=== PATIENT | female | born 1935 | race Caucasian/White ===

== ENCOUNTER 2019-11-03 19:12 | Inpatient (IN) | payer MEDICARE, OTHER, SELFPAY ==
[2019-11-03] VITALS (10 sets, daily range): BP systolic 103–127; BP diastolic 69–114; PULSE 105–130; RESP 18–25; TEMP 36.6–36.8; O2SAT 96–100; BMI 32.5
--- NOTE | 2019-11-03 19:12 | ECHOD_ITS ---
Version 2 Reason For Study: New Afib Procedure This was a 2D Doppler, Color Flow transthoracic echocardiogram. Technically difficult due to arrhythmia. Exam performed portable in patient room. Left Ventricle Normal LV size. Left ventricular systolic function is normal. The estimated ejection fraction is 65 %. Unable to assess diastolic dysfunction. No regional wall motion abnormalities noted. Right Ventricle Normal RV size. Normal systolic function. Atria The left atrium is moderately enlarged. The right atrium is mildly enlarged. No doppler evidence for ASD. Mitral Valve There is moderate mitral annular calcification. Extension of the mitral annular calcification onto the base of the mitral valve leaflets. Mild diffuse mitral valve calcification. Moderate (2+) mitral valve insufficiency. Tricuspid Valve Normal tricuspid valve. Mild to moderate (1-2+) tricuspid valve insufficiency. Right ventricular systolic pressure estimated to be 48 mmHg. Aortic Valve Based upon the 2D echocardiographic images obtained the aortic valve is not well visualized, however, there appears to be diffuse thickening, calcification, and restriction. Moderate aortic stenosis. Pulmonic Valve The pulmonic valve is not well visualized. Mild-Moderate (1-2+) pulmonic valve insufficiency. Great Vessels The aortic root is not well visualized. Pericardium/Pleural No pericardial effusion. MMode/2D Measurements & Calculations LVIDd: 3.5 cm IVSd: 1.7 cm LVOT diam: 2.0 cm LVIDs: 1.8 cm LVPWd: 0.99 cm LVOT area: 3.0 cm2 RVDd: 4.0 cm FS: 50.0 % LA dimension: 4.1 cm LAV(MOD-bp): 77.6 ml LA A4 area: 25.6 cm2 LAV(MOD-sp2): 76.9 ml LAV(MOD-sp4): 78.4 ml RA A4 area: 21.3 cm2 Doppler Measurements & Calculations MV E max hong: 183.1 cm/sec Ao V2 max: 345.5 cm/sec LV V1 max: 77.6 cm/sec Ao max P.9 mmHg LV V1 max P.4 mmHg Ao V2 mean: 235.4 cm/sec LV V1 mean P.1 mmHg Ao mean P.6 mmHg LV V1 mean: 48.0 cm/sec Ao V2 VTI: 60.9 cm LV V1 VTI: 11.7 cm BESS(I,D): 0.58 cm2 BESS(V,D): 0.68 cm2 MR max hong: 586.3 cm/sec SV(LVOT): 35.1 ml PA V2 max: 101.2 cm/sec MR max P.5 mmHg MR mean hong: 389.2 cm/sec MR mean P.9 mmHg MR VTI: 144.6 cm PI end-d hong: 115.4 cm/sec TR max hong: 316.1 cm/sec TR max P.0 mmHg Interpretation Summary Left ventricular systolic function is normal. The estimated ejection fraction is 65 %. The left atrium is moderately enlarged. The right atrium is mildly enlarged. There is moderate mitral annular calcification. Extension of the mitral annular calcification onto the base of the mitral valve leaflets. Mild diffuse mitral valve calcification. Moderate (2+) mitral valve insufficiency. Mild to moderate (1-2+) tricuspid valve insufficiency. Moderate aortic stenosis. Mild-Moderate (1-2+) pulmonic valve insufficiency. Right ventricular systolic pressure estimated to be 48 mmHg. Unable to assess diastolic dysfunction. Ordering Physician: Yuri Martin Performed By: Deven Quintanilla RCS
--- NOTE | 2019-11-03 19:20 | PCM.HP.STD ---
History of Present Illness Date of Admission: 11/03/19 Chief Complaint: palpitations The patient is a 84 year old F is been experiencing palpitations intermittently for the past few days. On the eighth, patient was have palpitations as well as chest pain. The chest pain would radiate to her jaw as well as her down her left arm. Was seen at the [facility] emergency room and was diagnosed with atrial fibrillation. I do not have the records but per the family, patient's heart rate was still in the 180s when she was discharged and was started on digoxin. Again patient had the same symptoms today and presented to [facility]. Patient was found to be in atrial fibrillation with RVR. Patient had a digoxin level of 2.3. Patient was started on diltiazem drip and heart rate improved to the 110s 1 teens. Patient had chest x-ray that was concerning for pneumonia. Family did not want to go back to [facility] and their next request was for [facility] and we were contacted and the patient was sent over. Currently the patient is chest pain-free. Patient states that she has been progressively short of breath over the past several days as well. Patient does have chronic lower extremity edema which she is on bumetanide as well as Aldactone. Patient denies any history of heart failure. Patient only known cardiac history that she is aware of his was rheumatic heart disease that left her with a valve issue. [] Past Medical History Past Medical History (Chronic Problems): Chronic Problems Factor V deficiency (Chronic) Gout (Chronic) H/O iron deficiency anemia (Chronic) Osteoporosis (Chronic) Porphyria (Chronic) Recurrent dislocation of hip (Chronic) CAD (coronary artery disease) (Chronic) Hypothyroidism (Chronic) Vitamin D deficiency (Chronic) Overactive bladder (Chronic) Spinal stenosis (Chronic) Chronic diarrhea (Chronic) Adrenal hyperplasia (Chronic) History of deep venous thrombosis or pulmonary embolus (Chronic) Type 2 diabetes mellitus (Chronic) Chronic anticoagulation (Chronic) Familial combined hyperlipidemia (Chronic) Medical History: Medical History (Last Updated 11/03/19 @ 19:28 by Yuri Martin DO) CHF (congestive heart failure) I50.9 Cervical radiculopathy M54.12 Colon cancer C18.9 s/p resection DM2 (diabetes mellitus, type 2) E11.9 Degenerative disc disease Factor V deficiency D68.2 GERD (gastroesophageal reflux disease) K21.9 Guillain-[place]olla G61.0 resolved Hyperlipidemia E78.5 Hypothyroid E03.9 Osteoporosis M81.0 Peripheral neuropathy G62.9 Porphyria E80.20 VTE (venous thromboembolism) I82.90 Vitamin D deficiency E55.9 CKD (chronic kidney disease) stage 2, GFR 60-89 ml/min N18.2 HTN (hypertension) I10 Allergies Sulfa (Sulfonamide Antibiotics) Allergy (Verified 12/09/16 10:54) Rash Home Medications: Ambulatory Orders Medication Instructions Recorded Allopurinol [Zyloprim] 300 mg PO DAILY 09/30/16 Atorvastatin Calcium [Lipitor] 20 mg PO QHS 09/30/16 Bumetanide [Bumex] 0.5 mg PO BID 09/30/16 Citalopram [Celexa] 40 mg PO DAILY 09/30/16 Colesevelam Hydrochloride [Welchol] 625 mg GT BIDCM 09/30/16 Diphenoxylate HCl/Atropine 3 tab PO 4X/DAY 09/30/16 [Lomotil 2.5-0.025 mg Tablet] Duloxetine HCl 60 mg PO DAILY 09/30/16 Fenofibrate [Tricor] 145 mg PO DAILY 09/30/16 Ferrous Sulfate 325 mg PO DAILY@0800 09/30/16 Gabapentin [Neurontin] 400 mg PO TIDCM 09/30/16 Levothyroxine Sodium [Levo-T] 112 mcg PO DAILY 09/30/16 Lidocaine 5% 5 % TOPICAL DAILY 09/30/16 Metoprolol Tartrate [Lopressor 25 mg PO BID 09/30/16 (beta negar)] Multivit-Min/Iron/Folic Acid/K 1 each PO DAILY 09/30/16 [Multi For Her Softgel] Nitroglycerin (INPATIENT USE) 0.4 mg SUBLINGUAL PRN PRN 09/30/16 [Nitrostat] Potassium Chloride [Klor-Con 20 meq PO DAILY 09/30/16 Sprinkle] Spironolactone [Aldactone] 25 mg PO BID 09/30/16 Vit B12/Levomefolate/Vit B6/B2 1,000 each PO DAILY 09/30/16 [l-Methyl-Mc Tablet] Warfarin [Coumadin] 3 mg PO DAILY 09/30/16 cycloBENZAPRine HCl [Flexeril] 5 mg PO TID PRN PRN 09/30/16 Ergocalciferol [Vitamin D] 50,000 unit PO QMONTH 12/09/16 [place]-3 Fatty Acids/Fish Oil [Fish 1 each PO BID 12/09/16 Oil 1,000 mg Capsule] Sucralfate [Carafate] 1 gm PO TIDCM 12/09/16 Lidocaine [Lidoderm Patch] 1 patch TOPICAL DAILY 12/16/16 HYDROmorphone tablet [Dilaudid] 4 mg PO Q6 #1 tablet 12/17/16 Hydrocodone Bitart/Apap 5-325 1 - 2 tablet PO Q4H PRN PRN #80 12/17/16 [[place] 5/325] tablet Lorazepam [Ativan] 0.5 mg PO BID #1 tablet 12/17/16 Surgical History: appendectomy, arthroscopy, knee - left, cholecystectomy, colectomy - and ileostomy and then again for cancer in 2007, herniorrhaphy - umbilical, hysterectomy, total hip arthroplasty - left, - - oophorectomy in her 20s, bilateral bunion removal, right hammertoe repair, repair of hernaited nucleus pulposus of lumbar spine Smoking Status: Never smoker - *Family History Maternal History Items: Heart Disease Paternal History Items: Heart Disease Review of Systems Constitutional: Denies: Anorexia, Chills, Fever Eyes: Denies: Blurred vision, Double vision HEENT: Denies: Head Aches, Sinus Congestion, Sinus Drainage Cardiovascular: Reports: Chest Pain, Edema Respiratory: Reports: Shortness of Breath. Denies: Cough Gastrointestinal: Denies: Abdominal Pain, Nausea, Vomiting Genitourinary: Denies: Dysuria Musculoskeletal: Reports: Arm Pain. Denies: Back Pain Skin: Denies: Dryness, Jaundice Neurological: Denies: Numbness, Tingling, Focal weakness Psychiatric: Denies: Anxiety, Depression Endocrine: Denies: Change in Body Habitus, Heat/ Cold Intolerance Hematologic/ Lymphatic: Reports: Hx of blood clot. Denies: Easy Bruising, Easy Bleeding Comment: All review systems are otherwise negative except for as mentioned above and in the HPI. VTE Information - Inpt Only VTE Present on Admission: No VTE Mechan Device Prophylaxis: None VTE Pharm Prophylaxis ordered?: No Reason prophylaxis not ordered:: Treatment Not Indicated - Physical Exam Vitals/I&O's: Vital Signs Temp Pulse Resp BP Pulse Ox 36.7 C 130 H 25 H 127/114 H 98 11/03/19 19:15 11/03/19 19:15 11/03/19 19:15 11/03/19 19:15 11/03/19 19:15 Oxygen Flow Rate (L/min) 3 Oxygen Delivery Method Nasal Cannula Weight: 83.2 kg Body Mass Index (BMI) 32.5 Finger Stick Blood Glucose 150 General: Alert, Cooperative, No apparent distress, Well developed, Well nourished HEENT: Atraumatic, Normocephalic, - - No icterus Oral: Moist Mucosa Neck: No Nodes, Trachea Midline, - - Positive JVD Lungs: Normal air movement, - - Bibasilar crackles Cardiovascular: Irregular Rate, Tachycardic Abdomen: Bowel Sounds Present, Soft, Non Tender, Non-Distended, - - Ileostomy in place. Extremities: No Calf Tenderness, Edema Skin: - - Of venous stasis dermatitis of lower extremities. No ulcers Musculoskeletal: No Tenderness to Palpation of Joints or Extremities, No Muscle Wasting Neurological: Muscle tone normal, - - No clonus Psych/Mental Status: Normal Affect, Appropriate Labs from outside hospital: INR 4, digoxin 2.3. BMP: Sodium 130, potassium 4.5, BUN 21, creatinine 0.9. CBC: White count 11.1, ODILON globin 10.5, platelets 199. Chest x-ray personally reviewed and that showed pulmonary vascular congestion bilaterally. Current Medications Sodium Chloride () 500 mls @ 15 mls/hr IV PRN PRN PRN Reason: Blood Transfusion Sodium Chloride () 250 mls @ 15 mls/hr IV .[id number] PRN PRN Reason: Saline Flush Sodium Chloride () 250 mls @ 15 mls/hr IV .[id number] PRN PRN Reason: Additional IVPB Infusion Nutritional Formula (Lactose Free) (Glucerna Shake) 120 ml PO 4X/DAY XANDER Sodium Chloride () 10 - 40 ml IV UD PRN PRN Reason: SALINE FLUSH Assessment/Plan All Active Problems Cellulitis of leg, left (Acute) Wound of left leg (Acute) B12 deficiency (Acute) Osteoarthritis (Acute) Depression with anxiety (Acute) 1. Atrial fibrillation with RVR Improved with diltiazem drip. Will continue with that for now. Previously, patient was on metoprolol 25 mg twice daily and then was recently added digoxin from [facility]. Plan is to check an echocardiogram and a cardiology consult. Patient already anticoagulated with warfarin that she takes for factor V Leiden deficiency. Toxin level was high so that will be held 2. Acute heart failure Unclear type at this time though from documents, it is written as diastolic Check an echocardiogram to verify ejection fraction Patient will be started on furosemide As outpatient, patient was on bumetanide Michael as well as spironolactone Fluid restrict and daily weights 3. Coagulopathy Secondary to warfarin but could have been compounded by the digoxin that she was recently prescribed. Hold warfarin and let it drift down to 3 then to resume 4. Diabetes mellitus type 2 Controlled per the patient Sliding scale insulin 5. Venous thromboembolic disease: Not indicated patient is already anticoagulated 6. Factor V Leiden deficiency and history of VTE Tinea with warfarin but wait for the INR to drift down to 3 7. Advanced care planning: Discussed with the patient. Patient is to continue to be DNR Comfort Care arrest. Discussed with the patient's family at bedside. Code Visit Inpatient E&M: [id number] Init Hosp L3
[2019-11-03] MEDS: Furosemide 40 MG/4 ML Vial IV (20:29)
[2019-11-03] MEDS: 0.9% Saline Lock 10 ML Syringe IV (21:29)
[2019-11-03] MEDS: Metoprolol Tartrate 25 MG Tablet PO (21:35)
[2019-11-03] MEDS: Spironolactone 25 MG Tablet PO (21:35)
[2019-11-03] MEDS: Atorvastatin Calcium 20 MG Tablet PO (21:35)
[2019-11-03] MEDS: HYDROcodone Bitartrate/Apap 5/325 Tablet PO (22:59)
[2019-11-03] MEDS: Diphenoxylate/Atrop 1 Tablet 2 TABLET PO (23:05)
[2019-11-04] VITALS (36 sets, daily range): BP systolic 92–129; BP diastolic 61–93; PULSE 75–137; RESP 18–29; TEMP 36.8; O2SAT 90–98
[2019-11-04] MEDS: LORazepam 0.5 MG Tablet PO (00:10)
[2019-11-04] MEDS: Levothyroxine 112 MCG Tablet PO (06:20)
[2019-11-04] MEDS: Ipratropium 0.5 MG/2.5 ML SOLUTION INHALATION ×5 (07:02→23:39)
[2019-11-04 07:24] LABS: Absolute Lymphocyte Count 0.83 X10^3/uL (0.83-4.51); Absolute Neutrophil Count 10.8 X10^3/uL (2.0-7.7); Basophil# 0.04 X10^3/uL; Basophil% 0.3 % (0-1); Hematocrit 34.3 % (37-47); Hemoglobin 11.1 g/dL (12.0-15.0); Lymphocyte # 0.83 X10^3/ul (4.0); Lymphocyte % 6.4 % (19-41); Mean Corp Hgb Conc 32.4 g/dL (32-36); Mean Corpuscular Hgb 32.3 pg (27.0-32.0); Mean Corpuscular Volume 99.7 fL (81-99); Mean Platelet Vol. 9.9 fl (6.2-12.0); Monocyte# 1.27 X10^3/uL; Monocyte% 9.8 % (0-10); NRBC Flagged by Analyzer 0 % (0-5); Neutrophil # 10.76 X10^3/uL (2.7-7.7); Neutrophil % 82.9 % (47-70); Platelet Count 197 K/mm3 (150-450); RBC Distribution Width CV 14.6 % (11.6-14.6); RBC Distribution Width SD 53.3 fl (35.1-43.9); Red Blood Count 3.44 M/mm3 (4.2-5.4)
[2019-11-04 07:34] LABS: International Normalized Ratio 3.3; Prothrombin Time (Protime)PT. 34.1 SECONDS (11.7-14.9)
[2019-11-04 07:41] LABS: Hemoglobin A1c 6.8 % (4.2-6.3)
[2019-11-04 08:01] LABS: ALB/GLOB Ratio 0.7 RATIO (0.9-2.4); AST(SGOT) 19 U/L (15-37); Alanine Aminotransfer ALT/SGPT 20 U/L (13-56); Albumin, Serum 3.2 g/dL (3.2-5.0); Alkaline Phosphatase 79 U/L (45-117); Anion Gap 7 (5-15); BUN 19 mg/dL (7-18); BUN/Creat Ratio 19.7 RATIO (10-20); Calcium,Total 9.3 mg/dL (8.5-10.1); Chloride 106 mmol/L (98-107); Creatinine, Serum 0.97 mg/dL (0.55-1.02); EST Glomerular Filtration Rate 58 mL/min (>60); Est Glom Filt Rate - Afr Amer 71 mL/min (>60); Estimated Creatinine Clearance 35.71 ml/min; Globulin 4.3 g/dL (2.2-4.2); Glucose 148 mg/dL (74-106); Protein, Total 7.5 g/dL (6.4-8.2); Sodium Level 136 mmol/L (136-145); Thyroid Stim Hormone (TSH) 0.86 uIU/mL (0.358-3.74)
[2019-11-04 08:14] LABS: Digoxin Level 1.67 ng/mL (0.80-2.00)
[2019-11-04] MEDS: Sucralfate 1 GM Tablet PO ×2 (08:21→16:46)
[2019-11-04] MEDS: Fenofibrate 145 MG Tablet PO (08:21)
[2019-11-04] MEDS: Gabapentin 400 MG Capsule PO ×2 (08:21→17:31)
[2019-11-04] MEDS: Ferrous Sulfate 325 MG Tablet PO (08:21)
[2019-11-04] MEDS: Furosemide 40 MG/4 ML Vial IV ×2 (08:50→17:30)
[2019-11-04] MEDS: Citalopram 40 MG TABLET PO (10:22)
[2019-11-04] MEDS: Metoprolol Tartrate 25 MG Tablet PO ×2 (10:23→22:10)
[2019-11-04] MEDS: DULoxetine Hcl 60 MG Capsule PO (10:23)
[2019-11-04] MEDS: Lidocaine 5% Patch 1 PATCH TOPICAL (10:23)
[2019-11-04] MEDS: Glucerna Shake 120 ML LIQUID PO (10:23)
[2019-11-04] MEDS: Allopurinol 300 MG Tablet PO (10:23)
[2019-11-04] MEDS: HYDROcodone Bitartrate/Apap 5/325 Tablet PO ×2 (10:51→18:37)
--- NOTE | 2019-11-04 11:22 | CON.PCM_ITS ---
Problem List (1) Chronic anticoagulation Status: Chronic (2) Familial combined hyperlipidemia Status: Chronic (3) Type 2 diabetes mellitus Status: Chronic (4) Hypothyroidism Status: Chronic (5) Factor V deficiency Status: Chronic (6) History of deep venous thrombosis or pulmonary embolus Status: Chronic Reason for Consult Date of Consultation: 11/04/19 History of Present Illness: The patient is a 84 year old female who states she has a past cardiovascular history which has included atrial fibrillation although she does not believe to be permanent who is referred for evaluation of atrial fibrillation superimposed upon a history of hyperlipidemia, diabetes mellitus, hypothyroidism, factor V deficiency, DVT, for concerns of her atrial fibrillation and left upper extremity discomfort and abnormal ECG-left bundle branch block pattern. The patient has been residing at an extended care facility. She states years ago she underwent cardiovascular evaluation but does not recall ever undergoing evaluation with a diagnostic cardiac catheterization. It appears on 12-17-12 at [facility] she had a transthoracic echocardiogram performed. At that time the left ventricle was reported as normal with an LVEF of 60% with mild mitral annular calcification, mild TR, mild aortic valve stenosis, and an estimated RV systolic pressure of 31 mmHg. She states based upon concerns of left upper extremity discomfort she recently presented to [facility] in [place], [place] for further evaluation. In the emergency department she was found to have atrial fibrillation with reports of an underlying left bundle branch block pattern with reportedly no additional acute cardiovascular findings. She was placed on medical therapy with digitalis and asked to have outpatient follow-up. She was not admitted to the hospital for further evaluation and care. She states she had recurrent symptoms and this time presented to [facility] in [place], [place] yesterday. She was found to have atrial fibrillation with an ECG with a left bundle branch block pattern. Her case had been discussed with the [facility] hospitalist staff. She was accepted in transfer to [facility] for further evaluation and care. She states that she has had intermittent left upper extremity discomfort. She has been somewhat chronically short of breath and dyspneic. She has not complained of acute nausea, emesis, or diaphoresis. She has had chronic lower extremity peripheral pitting edema. She does not recall any near-syncope or syncope. She states she has been tired and fatigued. [] Past Medical History Allergies/Adverse Reactions: Allergies Sulfa (Sulfonamide Antibiotics) Allergy (Verified 12/09/16 10:54) Rash Home Medications: Ambulatory Orders Medication Instructions Recorded Allopurinol [Zyloprim] 300 mg PO DAILY 09/30/16 Atorvastatin Calcium [Lipitor] 20 mg PO QHS 09/30/16 Bumetanide [Bumex] 0.5 mg PO BID 09/30/16 Citalopram [Celexa] 40 mg PO DAILY 09/30/16 Colesevelam Hydrochloride [Welchol] 625 mg PO BIDCM 09/30/16 Diphenoxylate HCl/Atropine 1 tab PO TID 09/30/16 [Lomotil 2.5-0.025 mg Tablet] Duloxetine HCl 60 mg PO DAILY 09/30/16 Ferrous Sulfate 65 mg PO DAILY@0800 09/30/16 Gabapentin [Neurontin] 400 mg PO TIDCM 09/30/16 Lidocaine 5% 5 % TOPICAL DAILY 09/30/16 Metoprolol Tartrate [Lopressor 25 mg PO BID 09/30/16 (beta negar)] Multivit-Min/Iron/Folic Acid/K 1 each PO DAILY 09/30/16 [Multi For Her Softgel] Nitroglycerin (INPATIENT USE) 0.4 mg SUBLINGUAL PRN PRN 09/30/16 [Nitrostat] Potassium Chloride [Klor-Con 20 meq PO DAILY 09/30/16 Sprinkle] Spironolactone [Aldactone] 25 mg PO BID 09/30/16 Vit B12/Levomefolate/Vit B6/B2 1,000 each PO DAILY 09/30/16 [l-Methyl-Mc Tablet] cycloBENZAPRine HCl [Flexeril] 5 mg PO TID PRN PRN 09/30/16 Ergocalciferol [Vitamin D] 50,000 unit PO QMONTH 12/09/16 Lidocaine [Lidoderm Patch] 1 patch TOPICAL DAILY 12/16/16 HYDROmorphone tablet [Dilaudid] 4 mg PO Q6 #1 tablet 12/17/16 Hydrocodone Bitart/Apap 5-325 1 - 2 tablet PO Q4H PRN PRN #80 12/17/16 [[place] 5/325] tablet Lorazepam [Ativan] 0.5 mg PO BID #1 tablet 12/17/16 Acetaminophen 325 - 650 mg PO Q4H PRN 11/04/19 Albuterol Sulfate 2.5 mg IH Q2H PRN 11/04/19 Amoxicillin [Amoxil] 4 cap PO PRN 11/04/19 Calcium Polycarbophil [Fiber-Lax] 2 tab PO 4X/DAY 11/04/19 Cimetidine [Tagamet Hb] 200 mg PO BID 11/04/19 Levothyroxine [Synthroid] 88 mcg PO DAILY 11/04/19 Ofloxacin 1 drp LEFT EYE Q2H 11/04/19 Propylene Glycol/Peg 400/Pf 1 ea RIGHT EYE QHS 11/04/19 [Systane 0.3-0.4% Eye Drops] Repaglinide 0.25 mg PO DINNER 11/04/19 Warfarin Sodium 5 mg PO 11/04/19 Past Medical History (Chronic Problems): Chronic Problems (Last Updated 11/03/19 @ 19:28 by Yuri Martin DO) Familial combined hyperlipidemia (Chronic) Hypothyroidism (Chronic) Recurrent dislocation of hip (Chronic) Porphyria (Chronic) Osteoporosis (Chronic) H/O iron deficiency anemia (Chronic) Gout (Chronic) Factor V deficiency (Chronic) Chronic anticoagulation (Chronic) Type 2 diabetes mellitus (Chronic) History of deep venous thrombosis or pulmonary embolus (Chronic) Adrenal hyperplasia (Chronic) Chronic diarrhea (Chronic) Spinal stenosis (Chronic) Overactive bladder (Chronic) Vitamin D deficiency (Chronic) CAD (coronary artery disease) (Chronic) Surgical History: appendectomy, arthroscopy, knee - left, cholecystectomy, colectomy - and ileostomy and then again for cancer in 2007, herniorrhaphy - umbilical, hysterectomy, total hip arthroplasty - left, - - oophorectomy in her 20s, bilateral bunion removal, right hammertoe repair, repair of hernaited nucleus pulposus of lumbar spine - *Family History Maternal History Items: Heart Disease Paternal History Items: Heart Disease Smoking Status: Never smoker Alcohol: None Drugs: None Review of Systems - Review of Systems General: Reports: Fatigue. Denies: Fever, Night Sweats Cardiovascular: Reports: Chest Discomfort, Chest Discomfort at Rest, Shortness of Breath, Peripheral Edema Respiratory: Reports: Shortness of Breath. Denies: Cough, Sputum Production, Hemoptysis Gastrointestinal: Denies: Hematemesis, Hematochezia, Melena Genitourinary: Denies: Dysuria, Hematuria Skin: Denies: Rash Subjectve: Is an 84-year-old white female who appears be resting comfortably at the moment in no acute distress. Objective: Vital Signs Temp Pulse Resp BP Pulse Ox 98.2 F 125 H 20 H 113/83 H 94 11/04/19 04:00 11/04/19 11:12 11/04/19 11:12 11/04/19 08:10 11/04/19 08:10 Oxygen Flow Rate (L/min) 2 Oxygen Delivery Method Nasal Cannula Weight: 183 lb 6.793 oz Body Mass Index (BMI) 32.5 Finger Stick Blood Glucose 150 Intake and Output for Last 24 Hours 11/02/19 11/03/19 11/04/19 23:59 23:59 23:59 Intake Total 22.75 / 237.75 402.25 / 402.25 Output Total 1275 / 1275 Balance 22.75 / -687.25 -872.75 / -872.75 General: Awake, Alert, Oriented x 3, Cooperative, No Acute Distress HEENT: Atraumatic, Normocephalic, PERRL, EOMI, Sclera Non Icteric Oral: Moist Mucosa Neck: Supple, Good ROM, No JVD Lungs: Clear to auscultation Cardiovascular: Irregular Rhythm, Normal S1, Normal S2 Murmur Murmur: Grade 2/6, Soft, Mid Systolic, LLSB Vascular: No Carotid Bruits Abdomen: Bowel Sounds Present, Soft, Non Tender Extremities: Mild RLE Edema, Mild LLE Edema Psych/Mental Status: Appropriate 11/04/19 06:35: WBC 13.0 H, RBC 3.44 L, Hgb 11.1 L, Hct 34.3 L, MCV 99.7 H, MCH 32.3 H, MCHC 32.4, Plt Count 197, MPV 9.9, Immature Gran % (Auto) 0.600, Neut % (Auto) 82.9 H, Lymph % (Auto) 6.4 L, [place] % (Auto) 9.8, Eos % (Auto) 0.0, Baso % (Auto) 0.3, Absolute Neuts (auto) 10.8 H, Nucleated RBC % 0 11/04/19 06:35: PT 34.1 H, INR 3.3 11/04/19 06:35: Sodium 136, Potassium 4.0, Chloride 106, Carbon Dioxide 23.0, Anion Gap 7, BUN 19 H, Creatinine 0.97, Est GFR (MDRD) Af Amer 71, Est GFR (MDRD) Non-Af 58 L, BUN/Creatinine Ratio 19.7, Glucose 148 H, Calcium 9.3, Total Bilirubin 0.80 11/04/19 06:35: Digoxin 1.67 11/04/19 06:35: Hemoglobin A1c 6.8 H Rhythm: Atrial fibrillation EKG: Outside ECG: Atrial fibrillation with a left bundle branch block pattern ECHO: Interpretation Summary The left atrium is moderately enlarged. The right atrium is mildly enlarged. There is moderate mitral annular calcification. Extension of the mitral annular calcification onto the base of the mitral valve leaflets. Mild diffuse mitral valve calcification. Moderate (2+) mitral valve insufficiency. Mild to moderate (1-2+) tricuspid valve insufficiency. Moderate aortic stenosis. Mild-Moderate (1-2+) pulmonic valve insufficiency. Right ventricular systolic pressure estimated to be 48 mmHg. Unable to assess diastolic dysfunction. Assessment/Plan 1. Atrial fibrillation The patient presents with atrial fibrillation. The exact duration is unknown. She is being monitored. She is being evaluated with laboratory studies, ECG, and her echocardiogram. She is being treated with rate control therapy. 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 Depending upon her clinical course she may need attempts at antiarrhythmic therapy and/or attempts at regaining sinus rhythm with synchronized biphasic DC cardioversion. Also depending upon her clinical course she may need further noninvasive or invasive cardiovascular studies as deemed appropriate. 2. Valvular heart disease She does appear to have by examination a cardiac murmur and by her transthoracic echocardiogram evidence of underlying valvular heart disease as noted. This involves both mitral and tricuspid valve regurgitation and aortic valve stenosis. This allowed to be taken into consideration during her ongoing evaluation and care. 3. Hyperlipidemia She will continue medical management as deemed appropriate. 4. Diabetes mellitus She will continue under the care of internal medicine. 5. Hypo-thyroidism She will continue medical management as deemed appropriate. 6. Factor V deficiency with history of DVT She has been on anticoagulant therapy. Depending upon her clinical course, if she does need invasive evaluation and/or care, then she would need to be considered for interruption of her oral anticoagulant therapy, bridging anti coagulant therapy, etc. The above was discussed and reviewed with the patient. She was agreeable to continued evaluation and care at this time. This note was generated using a voice recognition system and there may be incorrect words, spelling or punctuation that were not noted when reviewing the office note prior to saving.
[2019-11-04 12:15] LABS: Bedside Glucose 186 mg/dL (70-110)
--- NOTE | 2019-11-04 13:02 | PCM.PN.HOSP ---
<John West - Last Filed: 11/04/19 13:02> Reason for Visit: palpitations Subjective: Pt resting comfortably in bed. Overnight she continued to have palpitations, LE edema, SOB, nonproductive cough, and chest discomfort. She was started on dig last week at [facility] when she presented for Afib/Rvr. She was sent back to the SNF and was supposed to see cardiology in [place] as an outpatient. She did not make this appt. 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 Vitals/I&O's: Vital Signs Temp Pulse Resp BP Pulse Ox 98.2 F 125 H 20 H 113/83 H 94 11/04/19 04:00 11/04/19 11:12 11/04/19 11:12 11/04/19 08:10 11/04/19 08:10 Oxygen Flow Rate (L/min) 4 Oxygen Delivery Method Nasal Cannula Weight: 183 lb 6.793 oz Body Mass Index (BMI) 32.5 Finger Stick Blood Glucose 150 Intake and Output for Last 24 Hours 11/02/19 11/03/19 11/04/19 23:59 23:59 23:59 Intake Total 22.75 / 237.75 402.25 / 402.25 Output Total 1275 / 1275 Balance 22.75 / -687.25 -872.75 / -872.75 General: Alert, Oriented x3, Cooperative HEENT: Atraumatic, PERRLA, EOMI, Normocephalic Neck: Supple, No JVD, Negative Carotid Bruits Lungs: Normal air movement, Rales - BL bases Cardiovascular: No murmurs, Irregular Rate Abdomen: Bowel Sounds Present, Soft, Non Tender Extremities: No edema, Capillary Refill Less than 3 Seconds Skin: No rashes, No breakdown Musculoskeletal: No Tenderness to Palpation of Joints or Extremities Neurological: Cranial nerves II-XII grossly intact Psych/Mental Status: Normal Affect, Appropriate, Alert and oriented to time, place, person, mood and affect Laboratory Results 11/04/19 06:35: WBC 13.0 H, RBC 3.44 L, Hgb 11.1 L, Hct 34.3 L, MCV 99.7 H, MCH 32.3 H, MCHC 32.4, RDW Std Deviation 53.3 H, RDW Coeff of Vannesa 14.6, Plt Count 197, MPV 9.9, Immature Gran % (Auto) 0.600, Neut % (Auto) 82.9 H, Lymph % (Auto) 6.4 L, [place] % (Auto) 9.8, Eos % (Auto) 0.0, Baso % (Auto) 0.3, Absolute Neuts (auto) 10.8 H, Absolute Lymphs (auto) 0.83, Nucleated RBC % 0 11/04/19 06:35: PT 34.1 H, INR 3.3 11/04/19 06:35: Sodium 136, Potassium 4.0, Chloride 106, Carbon Dioxide 23.0, Anion Gap 7, BUN 19 H, Creatinine 0.97, Estim Creat Clear Calc 35.71, Est GFR (MDRD) Af Amer 71, Est GFR (MDRD) Non-Af 58 L, BUN/Creatinine Ratio 19.7, Glucose 148 H, Calcium 9.3, Total Bilirubin 0.80, AST 19, ALT 20, Alkaline Phosphatase 79, Total Protein 7.5, Albumin 3.2, Globulin 4.3 H, Albumin/Globulin Ratio 0.7 L, TSH 0.86 11/04/19 06:35: Digoxin 1.67 11/04/19 06:35: Hemoglobin A1c 6.8 H 11/04/19 06:35: Vitamin D 25-Hydroxy Pending 11/04/19 12:12: POC Glucose 186 H Current Medications Acetaminophen (Tylenol) 650 mg PO Q6H PRN PRN PRN Reason: Pain Score 1-3/Temp > 100.7 F Hydrocodone Bitart/Acetaminophen ([place] 5mg-325mg) 1 tablet PO Q4H PRN PRN PRN Reason: Mild-Mod Pain (1-5/10) Last Admin: 11/04/19 10:51 Dose: 1 tablet Documented by: Allopurinol (Zyloprim) 300 mg PO DAILY [facility] Last Admin: 11/04/19 10:23 Dose: 300 mg Documented by: Atorvastatin Calcium (Lipitor) 20 mg PO QHS [facility] Last Admin: 11/03/19 21:35 Dose: 20 mg Documented by: Citalopram Hydrobromide (Celexa) 40 mg PO DAILY [facility] Last Admin: 11/04/19 10:22 Dose: 40 mg Documented by: Colesevelam HCl (Welchol) 625 mg GT BIDCM [facility] Last Admin: 11/04/19 08:21 Dose: 625 mg Documented by: Cyclobenzaprine HCl (Flexeril) 5 mg PO TID PRN PRN PRN Reason: SPASMS Dextrose (D50w Syringe) 0 gm IV X1 PRN; Protocol PRN Reason: Hypoglycemia Diphenoxylate HCl/Atropine (Lomotil) 1 tablet PO TIDCM [facility] Last Admin: 11/04/19 12:17 Dose: Not Given Documented by: Diphenoxylate HCl/Atropine (Lomotil) 2 tablet PO QHS [facility] Last Admin: 11/03/19 23:05 Dose: 2 tablet Documented by: Duloxetine HCl (Cymbalta) 60 mg PO DAILY [facility] Last Admin: 11/04/19 10:23 Dose: 60 mg Documented by: Ergocalciferol (Vitamin D) 50,000 unit PO QMONTH [facility] Fenofibrate ([facility]ricor) [facility] Last Admin: 11/04/19 08:21 Dose: 145 mg Documented by: Ferrous Sulfate (Ferrous Sulfate) 325 mg PO DAILY@0800 [facility] Last Admin: 11/04/19 08:21 Dose: 325 mg Documented by: Furosemide (Lasix) 40 mg IV BIDLX [facility] Last Admin: 11/04/19 08:50 Dose: 40 mg Documented by: Gabapentin (Neurontin) 400 mg PO TIDCM [facility] Last Admin: 11/04/19 12:16 Dose: Not Given Documented by: Glucagon () 1 mg IM .X1 PRN PRN Reason: Hypoglycemia Sodium Chloride () 500 mls @ 15 mls/hr IV PRN PRN PRN Reason: Blood Transfusion Sodium Chloride () 250 mls @ 15 mls/hr IV .[id number] PRN PRN Reason: Saline Flush Sodium Chloride () 250 mls @ 15 mls/hr IV .[id number] PRN PRN Reason: Additional IVPB Infusion Diltiazem HCl 125 mg/ Dextrose 125 mls @ 5 mls/hr IV .Q25H [facility]; Protocol Last Admin: 11/04/19 10:34 Dose: 15 mg/hr, 15 mls/hr Documented by: Amiodarone HCl 360 mg/ (Dextrose) 200 mls @ 33.333 mls/hr CONT INF .Q6H [facility] Stop: 11/04/19 18:59 Amiodarone HCl 360 mg/ (Dextrose) 200 mls @ 16.667 mls/hr CONT INF .Q12H [facility] Stop: 11/04/19 19:18 Insulin Human Lispro (Humalog Kwikpen (Bkc)) 0 unit SC TIDAC [facility]; Protocol Last Admin: 11/04/19 12:15 Dose: Not Given Documented by: Ipratropium [place] (Atrovent) 0.5 mg INHALATION Q4H.RT [facility] Last Admin: 11/04/19 11:13 Dose: 0.5 mg Documented by: Levothyroxine Sodium (Synthroid) 112 mcg PO DAILY@0600 [facility] Last Admin: 11/04/19 06:20 Dose: 112 mcg Documented by: Lidocaine (Lidoderm Patch) 1 patch TOPICAL DAILY [facility]; Protocol Last Admin: 11/04/19 10:23 Dose: 1 patch Documented by: Lorazepam (Ativan) 0.5 mg PO BID PRN PRN Reason: ANXIETY Last Admin: 11/04/19 00:10 Dose: 0.5 mg Documented by: Melatonin (Melatonin) 3 mg PO QHS PRN PRN PRN Reason: INSOMNIA Metoprolol Tartrate (Lopressor (Beta Jameel)) 25 mg PO BID [facility] Last Admin: 11/04/19 10:23 Dose: 25 mg Documented by: Nitroglycerin (Nitrostat) 0.4 mg SUBLINGUAL Q5M PRN PRN Reason: CARDIAC/CHEST PAIN Ondansetron HCl (Zofran) 4 mg IV Q8H PRN PRN PRN Reason: NAUSEA/VOMITING Sodium Chloride () 10 - 40 ml IV UD PRN PRN Reason: SALINE FLUSH Last Admin: 11/03/19 21:29 Dose: 10 ml Documented by: Spironolactone (Aldactone) 25 mg PO BID [facility] Last Admin: 11/04/19 11:34 Dose: Not Given Documented by: Sucralfate (Carafate) 1 gm PO TIDAC [facility] Last Admin: 11/04/19 12:15 Dose: Not Given Documented by: STROKE Vital Signs/Narrative: Vital Signs Pulse Resp 11/04/19 11:12 125 H 20 H 11/04/19 10:34 123 H 11/04/19 10:23 123 H Medical Necessity - Tobacco Use Smoking Status: Never smoker Assessment/Plan 1. Afib RVR - cardiology following. Continued to have rvr despite metoprolol and cardizem drip. Started on amio. Recently placed on dig. renal function intact, dig level normal. On warfarin, INR 3.3. TSH normal. 2. Acute hypoxic respiratory failure 2/2 Acute on chronic diastolic CHF - Echo EF 65%, 2+ MVI, 1-2+ TVI, RVSP 48 mmHg, 1-2 + PVI. Continue IV lasix, aldactone. Fluid/Na+ restriction, Selvin wrap BL LE, trend I/O. 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 Hx DVT - coumadin therapeutic 5. HTN - controlled 6. HLD - statin, fenofibrate 7. Depression/Anxiety - celexa, cymbata, ativan 8. hypothyroidism - tsh normal, continue synthroid. 9. GERD - tagamet, sucralfate DVT ppx: warfarin DC planning: return to SNF when stable This patient was seen by John West PA-C under the supervision of Dr. Patricia <Neel Patricia E - Last Filed: 11/04/19 13:53> Vitals/I&O's: Vital Signs Temp Pulse Resp BP Pulse Ox 98.2 F 81 20 H 113/83 H 94 11/04/19 04:00 11/04/19 13:22 11/04/19 11:12 11/04/19 08:10 11/04/19 08:10 Oxygen Flow Rate (L/min) 4 Oxygen Delivery Method Nasal Cannula Weight: 183 lb 6.793 oz Body Mass Index (BMI) 32.5 Finger Stick Blood Glucose 150 Intake and Output for Last 24 Hours 11/02/19 11/03/19 11/04/19 23:59 23:59 23:59 Intake Total 22.75 / 237.75 755.25 / 755.25 Output Total 2275 / 2275 Balance 22.75 / -687.25 -1519.75 / -1519.75 Laboratory Results 11/04/19 06:35: WBC 13.0 H, RBC 3.44 L, Hgb 11.1 L, Hct 34.3 L, MCV 99.7 H, MCH 32.3 H, MCHC 32.4, RDW Std Deviation 53.3 H, RDW Coeff of Vannesa 14.6, Plt Count 197, MPV 9.9, Immature Gran % (Auto) 0.600, Neut % (Auto) 82.9 H, Lymph % (Auto) 6.4 L, [place] % (Auto) 9.8, Eos % (Auto) 0.0, Baso % (Auto) 0.3, Absolute Neuts (auto) 10.8 H, Absolute Lymphs (auto) 0.83, Nucleated RBC % 0 11/04/19 06:35: PT 34.1 H, INR 3.3 11/04/19 06:35: Sodium 136, Potassium 4.0, Chloride 106, Carbon Dioxide 23.0, Anion Gap 7, BUN 19 H, Creatinine 0.97, Estim Creat Clear Calc 35.71, Est GFR (MDRD) Af Amer 71, Est GFR (MDRD) Non-Af 58 L, BUN/Creatinine Ratio 19.7, Glucose 148 H, Calcium 9.3, Total Bilirubin 0.80, AST 19, ALT 20, Alkaline Phosphatase 79, Total Protein 7.5, Albumin 3.2, Globulin 4.3 H, Albumin/Globulin Ratio 0.7 L, TSH 0.86 11/04/19 06:35: Digoxin 1.67 11/04/19 06:35: Hemoglobin A1c 6.8 H 11/04/19 06:35: Vitamin D 25-Hydroxy Pending 11/04/19 12:12: POC Glucose 186 H Current Medications Acetaminophen (Tylenol) 650 mg PO Q6H PRN PRN PRN Reason: Pain Score 1-3/Temp > 100.7 F Hydrocodone Bitart/Acetaminophen ([place] 5mg-325mg) 1 tablet PO Q4H PRN PRN PRN Reason: Mild-Mod Pain (1-5/10) Last Admin: 11/04/19 10:51 Dose: 1 tablet Documented by: Allopurinol (Zyloprim) 300 mg PO DAILY [facility] Last Admin: 11/04/19 10:23 Dose: 300 mg Documented by: Atorvastatin Calcium (Lipitor) 20 mg PO QHS [facility] Last Admin: 11/03/19 21:35 Dose: 20 mg Documented by: Citalopram Hydrobromide (Celexa) 40 mg PO DAILY [facility] Last Admin: 11/04/19 10:22 Dose: 40 mg Documented by: Colesevelam HCl (Welchol) 625 mg GT BIDCM [facility] Last Admin: 11/04/19 08:21 Dose: 625 mg Documented by: Cyclobenzaprine HCl (Flexeril) 5 mg PO TID PRN PRN PRN Reason: SPASMS Dextrose (D50w Syringe) 0 gm IV X1 PRN; Protocol PRN Reason: Hypoglycemia Diphenoxylate HCl/Atropine (Lomotil) 1 tablet PO TIDCM [facility] Last Admin: 11/04/19 12:17 Dose: Not Given Documented by: Diphenoxylate HCl/Atropine (Lomotil) 2 tablet PO QHS [facility] Last Admin: 11/03/19 23:05 Dose: 2 tablet Documented by: Duloxetine HCl (Cymbalta) 60 mg PO DAILY [facility] Last Admin: 11/04/19 10:23 Dose: 60 mg Documented by: Ergocalciferol (Vitamin D) 50,000 unit PO QMONTH [facility] Famotidine (Pepcid) 20 mg PO BID [facility] Fenofibrate (Tricor) [facility] Last Admin: 11/04/19 08:21 Dose: 145 mg Documented by: Ferrous Sulfate (Ferrous Sulfate) 325 mg PO DAILY@0800 [facility] Last Admin: 11/04/19 08:21 Dose: 325 mg Documented by: Furosemide (Lasix) 40 mg IV BIDLX [facility] Last Admin: 11/04/19 08:50 Dose: 40 mg Documented by: Gabapentin (Neurontin) 400 mg PO TIDCM [facility] Last Admin: 11/04/19 12:16 Dose: Not Given Documented by: Glucagon () 1 mg IM .X1 PRN PRN Reason: Hypoglycemia Sodium Chloride () 500 mls @ 15 mls/hr IV PRN PRN PRN Reason: Blood Transfusion Sodium Chloride () 250 mls @ 15 mls/hr IV .[id number] PRN PRN Reason: Saline Flush Sodium Chloride () 250 mls @ 15 mls/hr IV .[id number] PRN PRN Reason: Additional IVPB Infusion Diltiazem HCl 125 mg/ Dextrose 125 mls @ 5 mls/hr IV .Q25H [facility]; Protocol Last Admin: 11/04/19 10:34 Dose: 15 mg/hr, 15 mls/hr Documented by: Amiodarone HCl 360 mg/ (Dextrose) 200 mls @ 33.333 mls/hr CONT INF .Q6H [facility] Stop: 11/04/19 18:59 Last Admin: 11/04/19 13:22 Dose: 1 mg/min, 33.3 mls/hr Documented by: Amiodarone HCl 360 mg/ (Dextrose) 200 mls @ 16.667 mls/hr CONT INF .Q12H [facility] Stop: 11/04/19 19:18 Insulin Human Lispro (Humalog Kwikpen (Bkc)) 0 unit SC TIDAC [facility]; Protocol Last Admin: 11/04/19 12:15 Dose: Not Given Documented by: Ipratropium [place] (Atrovent) 0.5 mg INHALATION Q4H.RT [facility] Last Admin: 11/04/19 11:13 Dose: 0.5 mg Documented by: Levothyroxine Sodium (Synthroid) 112 mcg PO DAILY@0600 [facility] Last Admin: 11/04/19 06:20 Dose: 112 mcg Documented by: Lidocaine (Lidoderm Patch) 1 patch TOPICAL DAILY [facility]; Protocol Last Admin: 11/04/19 10:23 Dose: 1 patch Documented by: Lorazepam (Ativan) 0.5 mg PO BID PRN PRN Reason: ANXIETY Last Admin: 11/04/19 00:10 Dose: 0.5 mg Documented by: Melatonin (Melatonin) 3 mg PO QHS PRN PRN PRN Reason: INSOMNIA Metoprolol Tartrate (Lopressor (Beta Jameel)) 25 mg PO BID [facility] Last Admin: 11/04/19 10:23 Dose: 25 mg Documented by: Nitroglycerin (Nitrostat) 0.4 mg SUBLINGUAL Q5M PRN PRN Reason: CARDIAC/CHEST PAIN Ondansetron HCl (Zofran) 4 mg IV Q8H PRN PRN PRN Reason: NAUSEA/VOMITING Sodium Chloride () 10 - 40 ml IV UD PRN PRN Reason: SALINE FLUSH Last Admin: 11/03/19 21:29 Dose: 10 ml Documented by: Spironolactone (Aldactone) 25 mg PO BID [facility] Last Admin: 11/04/19 11:34 Dose: Not Given Documented by: Sucralfate (Carafate) 1 gm PO TIDAC [facility] Last Admin: 11/04/19 12:15 Dose: Not Given Documented by: STROKE Vital Signs/Narrative: Vital Signs Pulse Resp 11/04/19 13:22 81 11/04/19 13:06 80 11/04/19 11:12 125 H 20 H 11/04/19 10:34 123 H 11/04/19 10:23 123 H Assessment/Plan Hospitalist note: I am seeing this patient in conjunction with John West. I independently seen and examined the patient. Progress note above, laboratory data and imaging studies reviewed and I concur with the above treatment plan. Patient mentioned that his breathing is better but still on oxygen. She continued to have palpitation and cough as well as chest discomfort. She is afebrile, heart rate still in the 110s, blood pressure is maintained, pulse ox is 94% on 4 L. - Physical Exam General: Alert, Oriented x3, Cooperative, mildly short of breath. HEENT: Atraumatic, PERRLA, EOMI. Neck: Supple, No JVD, Negative Carotid Bruits, Trachea Midline, Thyroid Normal. Lungs: Decreased breath sounds bilateral, bilateral basal crackles, no wheezes or rhonchi, short of breath.. Cardiovascular: Irregular rate and rhythm, Normal S1, Normal S2, PMI Normal, tachycardia. Abdomen: Bowel Sounds Present, Soft, Non Tender, Non-Distended, No Hepato-splenomegaly. Extremities: No clubbing, No cyanosis, + edema Skin: No rashes, No breakdown Neurological: Cranial nerves are intact, neuro grossly intact Assessment and plan: #1 acute on chronic diastolic CHF: She is on IV Lasix, on metoprolol and Aldactone. Still symptomatic, requiring oxygen. 2D echocardiogram revealed ejection fraction of 65%, moderately enlarged left atrium, moderately enlarged right atrium, moderate MR, moderate aortic stenosis, RVSP 48 above. EKG revealed A. fib with RVR. Plan to continue IV diuresis, repeat CBC and BMP tomorrow morning. #2 A. fib with RVR: Started on IV amiodarone drip, she was on IV Cardizem drip. Heart rate still in the 110s, blood pressure is maintained. Cardiology on the case. Patient was on Coumadin, INR is 3.3. #3 acute hypoxic respiratory failure: Secondary to acute CHF. She is requiring up to 4 L of oxygen. Plan to continue IV diuresis as above. #4 other chronic medical problems: Stable, continue current medications as above. This note was generated with [employer] dictation software. It may contain incorrect words, spelling, and punctuation that were not noted in checking the note before signing. Code Visit Inpatient E&M: 04195 Subs Hosp L2
[2019-11-04 16:30] LABS: Bedside Glucose 199 mg/dL (70-110)
--- NOTE | 2019-11-04 18:33 | EKG12_ITS ---
Test Reason : AM EKG Blood Pressure : / mmHG Vent. Rate : 094 BPM Atrial Rate : 066 BPM P-R Int : 000 ms QRS Dur : 134 ms QT Int : 366 ms P-R-T Axes : 000 001 186 degrees QTc Int : 457 ms Atrial fibrillation Left bundle branch block Abnormal ECG When compared with ECG of 04-NOV-2019 18:40, MANUAL COMPARISON REQUIRED, DATA IS UNCONFIRMED Confirmed by MIL HERRING, SANDRA ([id number]), makeup editor ROSANNA FLORES ([id number]) on 11/07/2019 10:39:07 AM Referred By: FLETCHER Confirmed By:SANDRA JAEGER MD
--- NOTE | 2019-11-04 20:23 | NURSING ---
Addendum entered by Christine Aguirre 11/05/19 01:11: Following breathing tx, pt back to 6L NC and tolerating well. Pt satting 92-93% while sleeping. LS diminished. Will continue to monitor. CURTIS Hammonds Original Note: Helped PT to bedside commode around 1945, after returning to bed pt had increased SOB, O2 sat reading at 88%, increased NC from 4L to 6L of O2, called RT for breathing treatment. Pt continued to sat 87-88% on 6L, increased to 35% Venti mask, and then 50% venti mask. Following breathing treatment pt began satting 91-93% on 50% Venti mask. Will keep pt on Venti mask at this time and continue to monitor. LS are diminished. CURTIS Hammonds
[2019-11-04] MEDS: Diphenoxylate/Atrop 1 Tablet 2 TABLET PO (22:10)
[2019-11-04] MEDS: Famotidine 20 MG Tablet PO (22:11)
[2019-11-04] MEDS: Atorvastatin Calcium 20 MG Tablet PO (22:11)
[2019-11-04] MEDS: Spironolactone 25 MG Tablet PO (22:11)
[2019-11-04 22:21] LABS: Bedside Glucose 202 mg/dL (70-110)
[2019-11-05] VITALS (37 sets, daily range): BP systolic 104–135; BP diastolic 61–97; PULSE 83–108; RESP 15–24; TEMP 36.6–37.2; O2SAT 20–98
[2019-11-05] MEDS: HYDROcodone Bitartrate/Apap 5/325 Tablet PO (02:39)
[2019-11-05] MEDS: Ipratropium 0.5 MG/2.5 ML SOLUTION INHALATION ×6 (03:32→23:14)
--- NOTE | 2019-11-05 04:48 | RAD_ITS ---
HISTORY: WHEEZING, COUGHAFIB RVR EXAM: XR Chest 1 View COMPARISON: April 09, 2010 FINDINGS: LINES/DEVICES: None. LUNGS: There are chronic interstitial changes. No pneumothorax. No consolidation. Bilateral pleural effusions are larger. MEDIASTINUM AND CARDIOVASCULAR STRUCTURES: Cardiac silhouette not enlarged. Central airways and mediastinal contour are unremarkable. Athersclerotic plaque within the aortic arch. BONES AND SOFT TISSUES: Right shoulder arthroplasty. Left shoulder arthritis. Dextroscoliosis within the lower thoracic spine and levoscoliosis within the lumbar spine is similar. RAD/Chest 1 View (Portable) IMPRESSION: Chronic interestitial changes. Bilateral pleural effusions with mild basilar pulmonary edema at 0510 Reported and signed by: Alex Salazar MD Electronically Signed: Alex Salazar MD at 5:09 EST Tel , Service support ,
[2019-11-05 05:25] LABS: Base Excess -1 mmol/L (-2 to +2); Bicarbonate 23.6 mmol/L (22-26); Blood Gas Specimen Type ART; FI02 50; PO2 56 mmHG (75-100); SITE R Brachial; SO2 89 % (95-99); Time Given 513; Total Carbon Dioxide 25 mmol/L; pCO2 39.1 mmHg (35-45); pH 7.39 (7.35-7.45)
--- NOTE | 2019-11-05 05:39 | NURSING ---
At 0400 Medication titration completed, Vitals documented in DEC. Started new bag of Cardizem at 0500, unable to back chart 0400 VS into DEC. Cassius, RN
--- NOTE | 2019-11-05 05:55 | EKG12_ITS ---
Test Reason : CP Blood Pressure : / mmHG Vent. Rate : 092 BPM Atrial Rate : 122 BPM P-R Int : 000 ms QRS Dur : 130 ms QT Int : 356 ms P-R-T Axes : 000 006 186 degrees QTc Int : 440 ms Atrial fibrillation Left bundle branch block Abnormal ECG When compared with ECG of 17-DEC-2014 15:52, Atrial fibrillation has replaced Sinus rhythm Left bundle branch block is now Present Confirmed by MIL HERRING, SANDRA ([id number]), dictionary editor ROSANNA FLORES ([id number]) on 11/07/2019 10:40:34 AM Referred By: FLETCHER Confirmed By:SANDRA JAEGER MD
[2019-11-05] MEDS: HYDROmorphone 2 MG TABLET 4 MG PO ×2 (05:59→22:15)
[2019-11-05] MEDS: Levothyroxine 112 MCG Tablet PO (06:00)
[2019-11-05 06:14] LABS: Absolute Lymphocyte Count 0.85 X10^3/uL (0.83-4.51); Absolute Neutrophil Count 10.6 X10^3/uL (2.0-7.7); Basophil# 0.04 X10^3/uL; Basophil% 0.3 % (0-1); Hematocrit 33.2 % (37-47); Hemoglobin 10.7 g/dL (12.0-15.0); Lymphocyte # 0.85 X10^3/ul (4.0); Lymphocyte % 6.7 % (19-41); Mean Corp Hgb Conc 32.2 g/dL (32-36); Mean Corpuscular Hgb 31.3 pg (27.0-32.0); Mean Corpuscular Volume 97.1 fL (81-99); Monocyte# 1.09 X10^3/uL; Monocyte% 8.6 % (0-10); NRBC Flagged by Analyzer 0 % (0-5); Neutrophil # 10.64 X10^3/uL (2.7-7.7); Neutrophil % 83.7 % (47-70); Platelet Count 248 K/mm3 (150-450); RBC Distribution Width CV 14.7 % (11.6-14.6); Red Blood Count 3.42 M/mm3 (4.2-5.4); White Blood Count 12.7 K/mm3 (4.4-11.0)
[2019-11-05 06:18] LABS: International Normalized Ratio 3.1; Prothrombin Time (Protime)PT. 31.7 SECONDS (11.7-14.9)
[2019-11-05] MEDS: Furosemide 20 MG/2 ML VIAL IV (06:34)
[2019-11-05 06:35] LABS: Anion Gap 8 (5-15); BUN 19 mg/dL (7-18); BUN/Creat Ratio 18.1 RATIO (10-20); Calcium,Total 9.2 mg/dL (8.5-10.1); Chloride 103 mmol/L (98-107); Creatinine, Serum 1.05 mg/dL (0.55-1.02); EST Glomerular Filtration Rate 53 mL/min (>60); Est Glom Filt Rate - Afr Amer 64 mL/min (>60); Estimated Creatinine Clearance 32.99 ml/min; Glucose 201 mg/dL (74-106); Potassium 3.8 mmol/L (3.5-5.1); Sodium Level 136 mmol/L (136-145)
[2019-11-05] MEDS: Ferrous Sulfate 325 MG Tablet PO (08:35)
[2019-11-05] MEDS: Sucralfate 1 GM Tablet PO ×3 (08:35→16:47)
[2019-11-05] MEDS: Gabapentin 400 MG Capsule PO ×3 (08:36→16:48)
[2019-11-05] MEDS: Fenofibrate 145 MG Tablet PO (08:38)
[2019-11-05] MEDS: DULoxetine Hcl 60 MG Capsule PO (08:39)
[2019-11-05] MEDS: Spironolactone 25 MG Tablet PO ×2 (08:39→22:15)
[2019-11-05] MEDS: Citalopram 40 MG TABLET PO (08:40)
[2019-11-05] MEDS: Lidocaine 5% Patch 1 PATCH TOPICAL (08:40)
[2019-11-05] MEDS: Metoprolol Tartrate 25 MG Tablet PO ×2 (08:41→22:14)
[2019-11-05] MEDS: Famotidine 20 MG Tablet PO ×2 (08:41→22:14)
[2019-11-05] MEDS: Allopurinol 300 MG Tablet PO (08:42)
[2019-11-05] MEDS: Insulin Lispro 100 UNIT/ML INSULN.PEN SC ×4 (08:42→22:16)
[2019-11-05] MEDS: Furosemide 40 MG/4 ML Vial IV ×3 (08:44→22:16)
[2019-11-05 09:06] LABS: Bedside Glucose 187 mg/dL (70-110)
[2019-11-05] MEDS: Diphenoxylate/Atrop 1 Tablet PO (11:53)
--- NOTE | 2019-11-05 12:54 | PN_ITS ---
<John West - Last Filed: 11/05/19 12:54> Reason for Visit: sob Subjective: increased SOB overnight, now on 6lpm o2. c/o chest pressure as well. No palpitations. LE edema improved. No fever/chills. Nonproductive cough. Vitals/I&O's: Vital Signs Temp Pulse Resp BP Pulse Ox 98 F 105 H 18 130/90 H 89 11/05/19 07:00 11/05/19 10:53 11/05/19 10:53 11/05/19 09:00 11/05/19 09:00 Oxygen Flow Rate (L/min) 6 Oxygen Delivery Method Nasal Cannula Weight: 184 lb 15.485 oz Body Mass Index (BMI) 32.5 Finger Stick Blood Glucose 150 Intake and Output for Last 24 Hours 11/03/19 11/04/19 11/05/19 23:59 23:59 23:59 Intake Total 22.75 / 237.75 1536.13 / 1551.13 575.87 / 575.87 Output Total 2975 / 2975 800 / 800 Balance 22.75 / -687.25 -1438.87 / -1423.87 -224.13 / -224.13 General: Alert, Oriented x3, Cooperative HEENT: Atraumatic, PERRLA, EOMI, Normocephalic Neck: Supple, No JVD, Negative Carotid Bruits Lungs: Normal air movement, No rales Cardiovascular: Regular rate, No murmurs, Irregular Rate Abdomen: Bowel Sounds Present, Soft, Non Tender Extremities: Capillary Refill Less than 3 Seconds, Edema Skin: No rashes, No breakdown Musculoskeletal: No Tenderness to Palpation of Joints or Extremities Neurological: Cranial nerves II-XII grossly intact Psych/Mental Status: Normal Affect, Appropriate, Alert and oriented to time, place, person, mood and affect Laboratory Results 11/04/19 16:19: POC Glucose 199 H 11/04/19 19:15: Troponin I 0.022 11/04/19 22:03: POC Glucose 202 H 11/04/19 22:20: Troponin I 0.022 11/05/19 01:00: Troponin I 0.022 11/05/19 05:18: Specimen Type ART, Sample Site R Brachial, pH 7.39, Bicarbonate Actual 23.6, POC Total CO2 25, Base Excess -1, O2 Saturation 89 L, O2 % 50, ABG pCO2 39.1, ABG pO2 56 L, Brad Test NA, O2 Delivery Device Vent Mask, Blood Gas Notified Whom NUNO HERRING, Blood Gas Notified Time 513 11/05/19 05:26: PT 31.7 H, INR 3.1 11/05/19 05:26: Sodium 136, Potassium 3.8, Chloride 103, Carbon Dioxide 25.0, Anion Gap 8, BUN 19 H, Creatinine 1.05 H, Estim Creat Clear Calc 32.99, Est GFR (MDRD) Af Amer 64, Est GFR (MDRD) Non-Af 53 L, BUN/Creatinine Ratio 18.1, Glucose 201 H, Calcium 9.2 11/05/19 05:26: WBC 12.7 H, RBC 3.42 L, Hgb 10.7 L, Hct 33.2 L, MCV 97.1, MCH 31.3, MCHC 32.2, RDW Std Deviation 52.0 H, RDW Coeff of Vannesa 14.7 H, Plt Count 248, MPV 10.0, Immature Gran % (Auto) 0.700, Neut % (Auto) 83.7 H, Lymph % (Auto) 6.7 L, [place] % (Auto) 8.6, Eos % (Auto) 0.0, Baso % (Auto) 0.3, Absolute Neuts (auto) 10.6 H, Absolute Lymphs (auto) 0.85, Nucleated RBC % 0 11/05/19 08:33: POC Glucose 187 H Current Medications Acetaminophen (Tylenol) 650 mg PO Q6H PRN PRN PRN Reason: Pain Score 1-3/Temp > 100.7 F Hydrocodone Bitart/Acetaminophen (Cobb 5mg-325mg) 1 tablet PO Q4H PRN PRN PRN Reason: Mild-Mod Pain (1-5/10) Last Admin: 11/05/19 02:39 Dose: 1 tablet Documented by: Allopurinol (Zyloprim) 300 mg PO DAILY [facility] Last Admin: 11/05/19 08:42 Dose: 300 mg Documented by: Atorvastatin Calcium (Lipitor) 20 mg PO QHS [facility] Last Admin: 11/04/19 22:11 Dose: 20 mg Documented by: Citalopram Hydrobromide (Celexa) 40 mg PO DAILY [facility] Last Admin: 11/05/19 08:40 Dose: 40 mg Documented by: [facility]el[facility] Last Admin: 11/05/19 08:38 Dose: 625 mg Documented by: Cyclobenzaprine HCl (Flexeril) 5 mg PO TID PRN PRN PRN Reason: SPASMS Dextrose (D50w Syringe) 0 gm IV X1 PRN; Protocol PRN Reason: Hypoglycemia Diphenoxylate HCl/Atropine (Lomotil) 1 tablet PO TIDCM [facility] Last Admin: 11/05/19 11:53 Dose: 1 tablet Documented by: Diphenoxylate HCl/Atropine (Lomotil) 2 tablet PO QHS [facility] Last Admin: 11/04/19 22:10 Dose: 2 tablet Documented by: Duloxetine HCl (Cymbalta) 60 mg PO DAILY [facility] Last Admin: 11/05/19 08:39 Dose: 60 mg Documented by: Ergocalciferol (Vitamin D) 50,000 unit PO QMONTH [facility] Famotidine (Pepcid) 20 mg PO BID [facility] Last Admin: 11/05/19 08:41 Dose: 20 mg Documented by: [facility] ([facility]or) [facility] Last Admin: 11/05/19 08:38 Dose: 145 mg Documented by: Ferrous Sulfate (Ferrous Sulfate) 325 mg PO DAILY@0800 [facility] Last Admin: 11/05/19 08:35 Dose: 325 mg Documented by: Furosemide (Lasix) 40 mg IV Q8 [facility] Gabapentin (Neurontin) 400 mg PO TIDCM [facility] Last Admin: 11/05/19 11:48 Dose: 400 mg Documented by: Glucagon () 1 mg IM .X1 PRN PRN Reason: Hypoglycemia Hydromorphone HCl (Dilaudid Tablet) 4 mg PO Q6 [facility] Last Admin: 11/05/19 12:06 Dose: Not Given Documented by: Sodium Chloride () 500 mls @ 15 mls/hr IV PRN PRN PRN Reason: Blood Transfusion Sodium Chloride () 250 mls @ 15 mls/hr IV .[id number] PRN PRN Reason: Saline Flush Sodium Chloride () 250 mls @ 15 mls/hr IV .[id number] PRN PRN Reason: Additional IVPB Infusion Diltiazem HCl 125 mg/ Dextrose 125 mls @ 5 mls/hr IV .Q25H [facility]; Protocol Last Titration: 11/05/19 06:00 Dose: 10 mg/hr, 10 mls/hr Documented by: Amiodarone HCl 360 mg/ (Dextrose) 200 mls @ 16.667 mls/hr CONT INF .Q12H [facility] Stop: 11/05/19 13:43 Last Admin: 11/05/19 09:00 Dose: 0.5 mg/min, 16.7 mls/hr Documented by: Insulin Human Lispro (Humalog Kwikpen (Bkc)) 0 unit SC ACHS [facility]; Protocol Last Admin: 11/05/19 11:56 Dose: 3 u Documented by: Ipratropium [place] (Atrovent) 0.5 mg INHALATION Q4H.RT [facility] Last Admin: 11/05/19 10:53 Dose: 0.5 mg Documented by: Levothyroxine Sodium (Synthroid) 112 mcg PO DAILY@0600 [facility] Last Admin: 11/05/19 06:00 Dose: 112 mcg Documented by: Lidocaine (Lidoderm Patch) 1 patch TOPICAL DAILY [facility]; Protocol Last Admin: 11/05/19 08:40 Dose: 1 patch Documented by: Lorazepam (Ativan) 0.5 mg PO BID PRN PRN Reason: ANXIETY Last Admin: 11/04/19 00:10 Dose: 0.5 mg Documented by: Melatonin (Melatonin) 3 mg PO QHS PRN PRN PRN Reason: INSOMNIA Metoprolol Tartrate (Lopressor (Beta Jameel)) 25 mg PO BID [facility] Last Admin: 11/05/19 08:41 Dose: 25 mg Documented by: Nitroglycerin (Nitrostat) 0.4 mg SUBLINGUAL Q5M PRN PRN Reason: CARDIAC/CHEST PAIN Ondansetron HCl (Zofran) 4 mg IV Q8H PRN PRN PRN Reason: NAUSEA/VOMITING Sodium Chloride () 10 - 40 ml IV UD PRN PRN Reason: SALINE FLUSH Last Admin: 11/03/19 21:29 Dose: 10 ml Documented by: Spironolactone (Aldactone) 25 mg PO BID [facility] Last Admin: 11/05/19 08:39 Dose: 25 mg Documented by: Sucralfate (Carafate) 1 gm PO TIDAC [facility] Last Admin: 11/05/19 11:48 Dose: 1 gm Documented by: STROKE Vital Signs/Narrative: Vital Signs Pulse Resp BP Pulse Ox 11/05/19 10:53 105 H 18 11/05/19 09:00 108 H 20 H 130/90 H 89 Medical Necessity - Tobacco Use Smoking Status: Never smoker Assessment/Plan 1. Afib RVR - cardiology following. Continue amio, cardizem, metoprolol. Rate improving. Echo as below. 2. Acute hypoxic respiratory failure 2/2 Acute on chronic diastolic CHF - Echo EF 65%, 2+ MVI, 1-2+ TVI, RVSP 48 mmHg, 1-2 + PVI. Continue IV lasix, aldactone. Fluid/Na+ restriction, Selvin wrap BL LE, trend I/O. -lasix increased. CXR with significant edema, O2 demand at 6lpm. consider lasix drip if minimal improvement. 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 Hx DVT - coumadin therapeutic 5. HTN - mildly elevated. 6. HLD - statin, fenofibrate 7. Depression/Anxiety - celexa, cymbata, ativan 8. hypothyroidism - tsh normal, continue synthroid. 9. GERD - tagamet, sucralfate DVT ppx: warfarin DC planning: return to SNF when stable This patient was seen by John West PA-C under the supervision of Dr. Patricia <Neel Patricia - Last Filed: 11/05/19 13:15> Vitals/I&O's: Vital Signs Temp Pulse Resp BP Pulse Ox 98 F 105 H 18 130/90 H 89 11/05/19 07:00 11/05/19 10:53 11/05/19 10:53 11/05/19 09:00 11/05/19 09:00 Oxygen Flow Rate (L/min) 6 Oxygen Delivery Method Nasal Cannula Weight: 184 lb 15.485 oz Body Mass Index (BMI) 32.5 Finger Stick Blood Glucose 150 Intake and Output for Last 24 Hours 11/03/19 11/04/19 11/05/19 23:59 23:59 23:59 Intake Total 22.75 / 237.75 1536.13 / 1551.13 575.87 / 575.87 Output Total 2975 / 2975 800 / 800 Balance 22.75 / -687.25 -1438.87 / -1423.87 -224.13 / -224.13 Laboratory Results 11/04/19 16:19: POC Glucose 199 H 11/04/19 19:15: Troponin I 0.022 11/04/19 22:03: POC Glucose 202 H 11/04/19 22:20: Troponin I 0.022 11/05/19 01:00: Troponin I 0.022 11/05/19 05:18: Specimen Type ART, Sample Site R Brachial, pH 7.39, Bicarbonate Actual 23.6, POC Total CO2 25, Base Excess -1, O2 Saturation 89 L, O2 % 50, ABG pCO2 39.1, ABG pO2 56 L, Brad Test NA, O2 Delivery Device Vent Mask, Blood Gas Notified Whom NUNO HERRING, Blood Gas Notified Time 513 11/05/19 05:26: PT 31.7 H, INR 3.1 11/05/19 05:26: Sodium 136, Potassium 3.8, Chloride 103, Carbon Dioxide 25.0, Anion Gap 8, BUN 19 H, Creatinine 1.05 H, Estim Creat Clear Calc 32.99, Est GFR (MDRD) Af Amer 64, Est GFR (MDRD) Non-Af 53 L, BUN/Creatinine Ratio 18.1, Glucose 201 H, Calcium 9.2 11/05/19 05:26: WBC 12.7 H, RBC 3.42 L, Hgb 10.7 L, Hct 33.2 L, MCV 97.1, MCH 31.3, MCHC 32.2, RDW Std Deviation 52.0 H, RDW Coeff of Vannesa 14.7 H, Plt Count 248, MPV 10.0, Immature Gran % (Auto) 0.700, Neut % (Auto) 83.7 H, Lymph % (Auto) 6.7 L, Potter % (Auto) 8.6, Eos % (Auto) 0.0, Baso % (Auto) 0.3, Absolute Neuts (auto) 10.6 H, Absolute Lymphs (auto) 0.85, Nucleated RBC % 0 11/05/19 08:33: POC Glucose 187 H Current Medications Acetaminophen (Tylenol) 650 mg PO Q6H PRN PRN PRN Reason: Pain Score 1-3/Temp > 100.7 F Hydrocodone Bitart/Acetaminophen (Cobb 5mg-325mg) 1 tablet PO Q4H PRN PRN PRN Reason: Mild-Mod Pain (1-510) Last Admin: 11/05/19 02:39 Dose: 1 tablet Documented by: Allopurinol (Zyloprim) 300 mg PO DAILY [facility] Last Admin: 11/05/19 08:42 Dose: 300 mg Documented by: Atorvastatin Calcium (Lipitor) 20 mg PO QHS [facility] Last Admin: 11/04/19 22:11 Dose: 20 mg Documented by: Citalopram Hydrobromide (Celexa) 40 mg PO DAILY [facility] Last Admin: 11/05/19 08:40 Dose: 40 mg Documented by: Colesevelam [facility] (Welchol) [facility] Last Admin: 11/05/19 08:38 Dose: 625 mg Documented by: Cyclobenzaprine HCl (Flexeril) 5 mg PO TID PRN PRN PRN Reason: SPASMS Dextrose (D50w Syringe) 0 gm IV X1 PRN; Protocol PRN Reason: Hypoglycemia Diphenoxylate HCl/Atropine (Lomotil) 1 tablet PO TIDCM [facility] Last Admin: 11/05/19 11:53 Dose: 1 tablet Documented by: Diphenoxylate HCl/Atropine (Lomotil) 2 tablet PO QHS [facility] Last Admin: 11/04/19 22:10 Dose: 2 tablet Documented by: Duloxetine HCl (Cymbalta) 60 mg PO DAILY [facility] Last Admin: 11/05/19 08:39 Dose: 60 mg Documented by: Ergocalciferol (Vitamin D) 50,000 unit PO QMONTH [facility] Famotidine (Pepcid) 20 mg PO BID [facility] Last Admin: 11/05/19 08:41 Dose: 20 mg Documented by: [facility]ofibrate (Tricor) [facility] Last Admin: 11/05/19 08:38 Dose: 145 mg Documented by: Ferrous Sulfate (Ferrous Sulfate) 325 mg PO DAILY@0800 [facility] Last Admin: 11/05/19 08:35 Dose: 325 mg Documented by: Furosemide (Lasix) 40 mg IV Q8 [facility] Gabapentin (Neurontin) 400 mg PO TIDCM [facility] Last Admin: 11/05/19 11:48 Dose: 400 mg Documented by: Glucagon () 1 mg IM .X1 PRN PRN Reason: Hypoglycemia Hydromorphone HCl (Dilaudid Tablet) 4 mg PO Q6 [facility] Last Admin: 11/05/19 12:06 Dose: Not Given Documented by: Sodium Chloride () 500 mls @ 15 mls/hr IV PRN PRN PRN Reason: Blood Transfusion Sodium Chloride () 250 mls @ 15 mls/hr IV .[id number] PRN PRN Reason: Saline Flush Sodium Chloride () 250 mls @ 15 mls/hr IV .[id number] PRN PRN Reason: Additional IVPB Infusion Diltiazem HCl 125 mg/ Dextrose 125 mls @ 5 mls/hr IV .Q25H [facility]; Protocol Last Titration: 11/05/19 06:00 Dose: 10 mg/hr, 10 mls/hr Documented by: Amiodarone HCl 360 mg/ (Dextrose) 200 mls @ 16.667 mls/hr CONT INF .Q12H [facility] Stop: 11/05/19 13:43 Last Admin: 11/05/19 09:00 Dose: 0.5 mg/min, 16.7 mls/hr Documented by: Insulin Human Lispro (Humalog Kwikpen (Bkc)) 0 unit SC ACHS [facility]; Protocol Last Admin: 11/05/19 11:56 Dose: 3 u Documented by: Ipratropium [place] (Atrovent) 0.5 mg INHALATION Q4H.RT [facility] Last Admin: 11/05/19 10:53 Dose: 0.5 mg Documented by: Levothyroxine Sodium (Synthroid) 112 mcg PO DAILY@0600 [facility] Last Admin: 11/05/19 06:00 Dose: 112 mcg Documented by: Lidocaine (Lidoderm Patch) 1 patch TOPICAL DAILY [facility]; Protocol Last Admin: 11/05/19 08:40 Dose: 1 patch Documented by: Lorazepam (Ativan) 0.5 mg PO BID PRN PRN Reason: ANXIETY Last Admin: 11/04/19 00:10 Dose: 0.5 mg Documented by: Melatonin (Melatonin) 3 mg PO QHS PRN PRN PRN Reason: INSOMNIA Metoprolol Tartrate (Lopressor (Beta Jameel)) 25 mg PO BID [facility] Last Admin: 11/05/19 08:41 Dose: 25 mg Documented by: Nitroglycerin (Nitrostat) 0.4 mg SUBLINGUAL Q5M PRN PRN Reason: CARDIAC/CHEST PAIN Ondansetron HCl (Zofran) 4 mg IV Q8H PRN PRN PRN Reason: NAUSEA/VOMITING Sodium Chloride () 10 - 40 ml IV UD PRN PRN Reason: SALINE FLUSH Last Admin: 11/03/19 21:29 Dose: 10 ml Documented by: Spironolactone (Aldactone) 25 mg PO BID [facility] Last Admin: 11/05/19 08:39 Dose: 25 mg Documented by: Sucralfate (Carafate) 1 gm PO TIDAC [facility] Last Admin: 11/05/19 11:48 Dose: 1 gm Documented by: STROKE Vital Signs/Narrative: Vital Signs Pulse Resp 11/05/19 10:53 105 H 18 Assessment/Plan Hospitalist note: I am seeing this patient in conjunction with John West. I independently seen and examined the patient. Progress note above and laboratory data reviewed and I concur with the above treatment plan. Today, she complains of chest pressure and still complaining of shortness of breath, almost no improvement. She is requiring more oxygen. She is afebrile, heart rate has been around 100, blood pressure stable, pulse ox is 89% on 6 L. - Physical Exam General: Alert, Oriented x3, Cooperative, mildly short of breath. HEENT: Atraumatic, PERRLA, EOMI. Neck: Supple, No JVD, Negative Carotid Bruits, Trachea Midline, Thyroid Normal. Lungs: Decreased breath sounds bilateral, bilateral basal crackles, no wheezes or rhonchi, short of breath.. Cardiovascular: Irregular rate and rhythm, Normal S1, Normal S2, PMI Normal, tachycardia. Abdomen: Bowel Sounds Present, Soft, Non Tender, Non-Distended, No Hepato- splenomegaly. Extremities: No clubbing, No cyanosis, + edema Skin: No rashes, No breakdown Neurological: Cranial nerves are intact, neuro grossly intact Assessment and plan: #1 acute on chronic diastolic CHF: Remained on IV Lasix, on metoprolol and Aldactone. Still short of breath, requiring more oxygen. 2D echocardiogram revealed ejection fraction of 65%, moderately enlarged left atrium, moderately enlarged right atrium, moderate MR, moderate aortic stenosis, RVSP 48 above. EKG revealed A. fib with RVR. May need to start patient on IV Lasix drip. Cardiology on the case. #2 A. fib with RVR: She is on IV amiodarone as well as Cardizem drip. Still in A. fib, heart rate has been around 100, blood pressure stable. Cardiology on the case. Patient was on Coumadin, INR is 3.1. #3 acute hypoxic respiratory failure: Secondary to acute CHF. She is requiring up to 6 L of oxygen, going up. Plan to continue IV diuresis as above. #4 other chronic medical problems: Stable, continue current medications as above. This note was generated with [employer] dictation software. It may contain incorrect words, spelling, and punctuation that were not noted in checking the note before signing. Code Visit Inpatient E&M: 16110 Subs Hosp L2
--- NOTE | 2019-11-05 14:42 | PCM.PN.CARD ---
Subjectve: The patient has been somewhat more short of breath. She has also had her aching shoulder discomforts. She states her discomforts respond to her chronic narcotic therapy. Objective: Vital Signs Temp Pulse Resp BP Pulse Ox 98.1 F 89 17 132/94 H 92 11/05/19 11:00 11/05/19 13:00 11/05/19 13:00 11/05/19 13:00 11/05/19 13:00 Oxygen Flow Rate (L/min) 6 Oxygen Delivery Method Nasal Cannula Weight: 184 lb 15.485 oz Body Mass Index (BMI) 32.5 Finger Stick Blood Glucose 150 Intake and Output for Last 24 Hours 11/03/19 11/04/19 11/05/19 23:59 23:59 23:59 Intake Total 22.75 / 237.75 1536.13 / 1551.13 645.87 / 645.87 Output Total 2975 / 2975 800 / 800 Balance 22.75 / -687.25 -1438.87 / -1423.87 -154.13 / -154.13 General: Awake, Cooperative, No Acute Distress HEENT: Atraumatic, Normocephalic, PERRL, EOMI, Sclera Non Icteric Oral: Moist Mucosa Neck: Supple, Good ROM Lungs: Rales - Chas Bases Cardiovascular: Irregular Rhythm, Normal S1, Normal S2 Abdomen: Bowel Sounds Present, Soft, Non Tender Extremities: - - Bilateral lower extremity Selvin wraps Psych/Mental Status: Appropriate 11/04/19 19:15: Troponin I 0.022 11/04/19 22:20: Troponin I 0.022 11/05/19 01:00: Troponin I 0.022 11/05/19 05:18: pH 7.39, Bicarbonate Actual 23.6, POC Total CO2 25, Base Excess -1, O2 Saturation 89 L, ABG pCO2 39.1, ABG pO2 56 L, Brad Test NA 11/05/19 05:26: PT 31.7 H, INR 3.1 11/05/19 05:26: Sodium 136, Potassium 3.8, Chloride 103, Carbon Dioxide 25.0, Anion Gap 8, BUN 19 H, Creatinine 1.05 H, Est GFR (MDRD) Af Amer 64, Est GFR (MDRD) Non-Af 53 L, BUN/Creatinine Ratio 18.1, Glucose 201 H, Calcium 9.2 11/05/19 05:26: WBC 12.7 H, RBC 3.42 L, Hgb 10.7 L, Hct 33.2 L, MCV 97.1, MCH 31.3, MCHC 32.2, Plt Count 248, MPV 10.0, Immature Gran % (Auto) 0.700, Neut % (Auto) 83.7 H, Lymph % (Auto) 6.7 L, [place] % (Auto) 8.6, Eos % (Auto) 0.0, Baso % (Auto) 0.3, Absolute Neuts (auto) 10.6 H, Nucleated RBC % 0 Rhythm: Atrial fibrillation EKG: Atrial fibrillation; left bundle branch block pattern; compared to the previous ECGs there appears to be no significant change CXR: Concerning for increased pulmonary vascularity: Please see official report Medical Necessity - Tobacco Use Smoking Status: Never smoker Assessment/Plan 1. Atrial fibrillation The patient presents with atrial fibrillation. The exact duration is unknown. She is being treated with rate control therapy. 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 He has been placed on additional medical therapy with IV amiodarone and attempt to assist with rate control and potentially regain sinus rhythm. Also depending upon her clinical course she may need further noninvasive or invasive cardiovascular studies as deemed appropriate. 2. Valvular heart disease She does appear to have by examination a cardiac murmur and by her transthoracic echocardiogram evidence of underlying valvular heart disease as noted. This involves both mitral and tricuspid valve regurgitation and aortic valve stenosis. This allowed to be taken into consideration during her ongoing evaluation and care. 3. Congestive heart failure It appears she has developed evidence concerning for CHF. It is unclear whether her atrial fibrillation superimposed upon her underlying valvular heart related issues, etc., is exacerbating her CHF. At the moment she is being treated with multiple medications. As her clinical course progresses consideration will have to be given as to whether or not she is a candidate for further cardiovascular evaluation which may include studies such as diagnostic cardiac catheterization to further evaluate coronary anatomy, etc.,. However, this may depend upon her once and wishes at her age, etc. 4. Hyperlipidemia She will continue medical management as deemed appropriate. 5. Diabetes mellitus She will continue under the care of internal medicine. 6. Hypo-thyroidism She will continue medical management as deemed appropriate. 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 Depending upon her clinical course, if she does need invasive evaluation and/or care, then she would need to be considered for interruption of her oral anticoagulant therapy, bridging anticoagulant therapy, etc. The patient's case has been previously discussed and reviewed with the [facility] staff. This note was generated using a voice recognition system and there may be incorrect words, spelling or punctuation that were not noted when reviewing the office note prior to saving.
[2019-11-05] MEDS: Nitroglycerin Oint 1 INCH PACKET 0.5 INCH TRANSDERM. (15:15)
[2019-11-05 15:27] LABS: BNP,B-Type NATRIURETIC PEPTIDE 494.1 pg/mL (0-100)
[2019-11-05 15:31] LABS: Bedside Glucose 240 mg/dL (70-110)
[2019-11-05 17:06] LABS: Bedside Glucose 172 mg/dL (70-110)
[2019-11-05] MEDS: Lisinopril 2.5 MG Tablet PO (22:14)
[2019-11-05] MEDS: Atorvastatin Calcium 20 MG Tablet PO (22:14)
[2019-11-05] MEDS: Diphenoxylate/Atrop 1 Tablet 2 TABLET PO (22:15)
[2019-11-05 22:36] LABS: Bedside Glucose 185 mg/dL (70-110)
[2019-11-06] VITALS (47 sets, daily range): BP systolic 98–155; BP diastolic 64–105; PULSE 65–117; RESP 15–24; TEMP 36.2–37.4; O2SAT 90–100
[2019-11-06] MEDS: Nitroglycerin Oint 1 INCH PACKET 0.5 INCH TRANSDERM. ×3 (00:05→18:02)
--- NOTE | 2019-11-06 05:55 | RAD_ITS ---
STUDY: X-RAY CHEST REASON FOR EXAM: Female, 84 years old. SOB TECHNIQUE: Portable chest COMPARISON: 11/05/2019 FINDINGS: There are patchy bilateral pulmonary opacities and pleural effusions similar to prior. There is a right shoulder prosthesis. There is stable cardiomegaly. Normal mediastinum and natasha. Normal visualized pulmonary arteries. Normal visualized aortic arch and descending thoracic aorta. There is generalized osteopenia. There is lower thoracic dextroscoliosis unchanged. Elevation of the left shoulder relationship to the acromion. There is no demonstrated abnormality of the visualized soft tissue structures of the upper abdomen. 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
[2019-11-06] MEDS: Insulin Lispro 100 UNIT/ML INSULN.PEN SC ×4 (06:26→22:36)
[2019-11-06] MEDS: Sucralfate 1 GM Tablet PO ×3 (06:26→17:48)
[2019-11-06] MEDS: Levothyroxine 112 MCG Tablet PO (06:26)
[2019-11-06] MEDS: HYDROmorphone 2 MG TABLET 4 MG PO ×2 (06:26→12:39)
[2019-11-06 06:28] LABS: Absolute Lymphocyte Count 0.75 X10^3/uL (0.83-4.51); Basophil# 0.04 X10^3/uL; Basophil% 0.3 % (0-1); Hematocrit 31.3 % (37-47); Hemoglobin 10.5 g/dL (12.0-15.0); Lymphocyte # 0.75 X10^3/ul (4.0); Lymphocyte % 6.3 % (19-41); Mean Corp Hgb Conc 33.5 g/dL (32-36); Mean Corpuscular Hgb 32.2 pg (27.0-32.0); Mean Platelet Vol. 9.4 fl (6.2-12.0); Monocyte# 0.98 X10^3/uL; Monocyte% 8.3 % (0-10); NRBC Flagged by Analyzer 0 % (0-5); Neutrophil # 9.99 X10^3/uL (2.7-7.7); Neutrophil % 84.5 % (47-70); Platelet Count 228 K/mm3 (150-450); RBC Distribution Width CV 14.6 % (11.6-14.6); RBC Distribution Width SD 50.9 fl (35.1-43.9); Red Blood Count 3.26 M/mm3 (4.2-5.4); White Blood Count 11.8 K/mm3 (4.4-11.0)
[2019-11-06] MEDS: Furosemide 40 MG/4 ML Vial IV (06:28)
[2019-11-06 06:41] LABS: Bedside Glucose 202 mg/dL (70-110)
[2019-11-06 06:42] LABS: International Normalized Ratio 2.5; Prothrombin Time (Protime)PT. 26.8 SECONDS (11.7-14.9)
[2019-11-06 06:48] LABS: Anion Gap 6 (5-15); BUN 18 mg/dL (7-18); BUN/Creat Ratio 19.1 RATIO (10-20); Calcium,Total 8.9 mg/dL (8.5-10.1); Chloride 102 mmol/L (98-107); Creatinine, Serum 0.94 mg/dL (0.55-1.02); EST Glomerular Filtration Rate 60 mL/min (>60); Est Glom Filt Rate - Afr Amer 73 mL/min (>60); Estimated Creatinine Clearance 36.85 ml/min; Glucose 185 mg/dL (74-106); Potassium 3.4 mmol/L (3.5-5.1); Sodium Level 133 mmol/L (136-145)
[2019-11-06] MEDS: Ipratropium 0.5 MG/2.5 ML SOLUTION INHALATION ×5 (07:37→23:53)
--- NOTE | 2019-11-06 09:54 | PN.CARD_ITS ---
Subjectve: The patient is awake and alert. She states she feels tired and fatigued. She does not complain of ongoing neck/shoulder/chest discomfort. She has been somewhat chronically short of breath and dyspneic. She continues with bilateral lower extremity Selvin wraps. Objective: Vital Signs Temp Pulse Resp BP Pulse Ox 98.4 F 92 18 105/64 94 11/06/19 05:00 11/06/19 07:37 11/06/19 07:37 11/06/19 06:27 11/06/19 07:37 Oxygen Flow Rate (L/min) 6 Oxygen Delivery Method Nasal Cannula Weight: 182 lb 1.629 oz Body Mass Index (BMI) 32.5 Finger Stick Blood Glucose 150 Intake and Output for Last 24 Hours 11/04/19 11/05/19 11/06/19 23:59 23:59 23:59 Intake Total 1536.13 / 1551.13 1426.64 / 1436.64 220 / 220 Output Total 2975 / 2975 2100 / 2100 350 / 350 Balance -1438.87 / -1423.87 -673.36 / -663.36 -130 / -130 General: Awake, Cooperative, No Acute Distress HEENT: Atraumatic, Normocephalic, PERRL, EOMI, Sclera Non Icteric Oral: Moist Mucosa Neck: Supple, Good ROM, No JVD Lungs: Rales - Chas Bases Cardiovascular: Irregular Rhythm, Normal S1, Normal S2 Abdomen: Bowel Sounds Present, Soft, Non Tender Extremities: - - Bilateral lower extremity Selvin wraps 11/05/19 05:26: B-Natriuretic Peptide 494.1 H 11/06/19 06:10: WBC 11.8 H, RBC 3.26 L, Hgb 10.5 L, Hct 31.3 L, MCV 96.0, MCH 32.2 H, MCHC 33.5, Plt Count 228, MPV 9.4, Immature Gran % (Auto) 0.600, Neut % (Auto) 84.5 H, Lymph % (Auto) 6.3 L, [place] % (Auto) 8.3, Eos % (Auto) 0.0, Baso % (Auto) 0.3, Absolute Neuts (auto) 10.0 H, Nucleated RBC % 0 11/06/19 06:10: PT 26.8 H, INR 2.5 11/06/19 06:10: Sodium 133 L, Potassium 3.4 L, Chloride 102, Carbon Dioxide 25.0, Anion Gap 6, BUN 18, Creatinine 0.94, Est GFR (MDRD) Af Amer 73, Est GFR (MDRD) Non-Af 60, BUN/Creatinine Ratio 19.1, Glucose 185 H, Calcium 8.9 Rhythm: Atrial fibrillation Medical Necessity - Tobacco Use Smoking Status: Never smoker Assessment/Plan 1. Atrial fibrillation The patient presents with atrial fibrillation. The exact duration is unknown. She is being treated with rate control therapy. 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 He has been placed on additional medical therapy with IV amiodarone and attempt to assist with rate control and potentially regain sinus rhythm. Also depending upon her clinical course she may need further noninvasive or invasive cardiovascular studies as deemed appropriate. 2. Valvular heart disease She does appear to have by examination a cardiac murmur and by her transthoracic echocardiogram evidence of underlying valvular heart disease as noted. This involves both mitral and tricuspid valve regurgitation and aortic valve stenosis. This allowed to be taken into consideration during her ongoing evaluation and care. 3. Congestive heart failure It appears she has developed evidence concerning for CHF. It is unclear whether her atrial fibrillation superimposed upon her underlying valvular heart related issues, etc., is exacerbating her CHF. At the moment she is being treated with multiple medications. As her clinical course progresses consideration will have to be given as to whether or not she is a candidate for further cardiovascular evaluation which may include studies such as diagnostic cardiac catheterization to further evaluate coronary anatomy, etc.,. However, this may depend upon her once and wishes at her age, etc. 4. Hyperlipidemia She will continue medical management as deemed appropriate. 5. Diabetes mellitus She will continue under the care of internal medicine. 6. Hypo-thyroidism She will continue medical management as deemed appropriate. 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 Depending upon her clinical course, if she does need invasive evaluation and/or care, then she would need to be considered for interruption of her oral anticoagulant therapy, bridging anticoagulant therapy, etc. Overall, at the present time, she will continue attempts at medical optimization. Hopefully she will improve with respect to her clinical status, vital signs, etc. She will consider how far she wants to go for further cardiac diagnostic studies/intervention. The patient's case has been previously discussed and reviewed with Dr. Patricia. This note was generated using a voice recognition system and there may be incorrect words, spelling or punctuation that were not noted when reviewing the office note prior to saving.
[2019-11-06 09:59] LABS: Magnesium 1.8 mg/dL (1.6-2.6)
[2019-11-06] MEDS: Gabapentin 400 MG Capsule PO ×2 (10:01→17:48)
[2019-11-06] MEDS: Fenofibrate 145 MG Tablet PO (10:01)
[2019-11-06] MEDS: Ferrous Sulfate 325 MG Tablet PO (10:01)
[2019-11-06] MEDS: Lisinopril 2.5 MG Tablet PO ×2 (10:01→22:37)
[2019-11-06] MEDS: Spironolactone 25 MG Tablet PO ×2 (10:01→22:36)
[2019-11-06] MEDS: DULoxetine Hcl 60 MG Capsule PO (10:01)
[2019-11-06] MEDS: 0.9% Saline Lock 10 ML Syringe IV (10:01)
[2019-11-06] MEDS: Allopurinol 300 MG Tablet PO (10:01)
[2019-11-06] MEDS: Famotidine 20 MG Tablet PO ×2 (10:01→22:37)
[2019-11-06] MEDS: Diphenoxylate/Atrop 1 Tablet PO (10:02)
[2019-11-06] MEDS: Metoprolol Tartrate 50 MG Tablet PO ×2 (10:02→22:36)
[2019-11-06] MEDS: Lidocaine 5% Patch 1 PATCH TOPICAL (10:03)
--- NOTE | 2019-11-06 10:27 | CASEMGMT ---
JUDITH called [facility] and confirmed patient is from their assisted living. JUDITH obtained fax number to send updates. JUDITH will need to talk with Susanne regarding whether or not patient can return to [place] of if she will need SNF. Information faxed to [facility]. (fax:[phone]) Bridgette BARROS MSW
[2019-11-06] MEDS: Furosemide 500 MG in Empty Viaflex 50 mL 1 EACH CONT INF (10:38)
--- NOTE | 2019-11-06 12:30 | PCM.PN.HOSP ---
<John West - Last Filed: 11/06/19 12:30> Reason for Visit: sob Subjective: output has slowed. pt to start lasix drip today. ongoing SOB at rest, palpitations, nonproductive cough, and chest pressure, and LE edema. Pt feels very weak and tired. Vitals/I&O's: Vital Signs Temp Pulse Resp BP Pulse Ox 97.1 F L 95 16 125/84 H 94 11/06/19 08:00 11/06/19 10:57 11/06/19 10:57 11/06/19 09:00 11/06/19 09:00 Oxygen Flow Rate (L/min) 6 Oxygen Delivery Method Nasal Cannula Weight: 182 lb 1.629 oz Body Mass Index (BMI) 32.5 Finger Stick Blood Glucose 150 Intake and Output for Last 24 Hours 11/04/19 11/05/19 11/06/19 23:59 23:59 23:59 Intake Total 1536.13 / 1551.13 1426.64 / 1436.64 400.23 / 400.23 Output Total 2975 / 2975 2100 / 2100 350 / 350 Balance -1438.87 / -1423.87 -673.36 / -663.36 50.23 / 50.23 General: Alert, Oriented x3, Cooperative HEENT: Atraumatic, PERRLA, EOMI, Normocephalic Neck: Supple, No JVD, Negative Carotid Bruits Lungs: Diminished, Rales Cardiovascular: No murmurs, Irregular Rate, Tachycardic Abdomen: Bowel Sounds Present, Soft, Non Tender Extremities: Capillary Refill Less than 3 Seconds, Edema Skin: No rashes, No breakdown Musculoskeletal: No Tenderness to Palpation of Joints or Extremities Neurological: Cranial nerves II-XII grossly intact Psych/Mental Status: Normal Affect, Appropriate, Alert and oriented to time, place, person, mood and affect Laboratory Results 11/04/19 06:35: Vitamin D 25-Hydroxy 33.0 11/05/19 05:26: B-Natriuretic Peptide 494.1 H 11/05/19 11:55: POC Glucose 240 H 11/05/19 16:49: POC Glucose 172 H 11/05/19 22:12: POC Glucose 185 H 11/06/19 06:10: WBC 11.8 H, RBC 3.26 L, Hgb 10.5 L, Hct 31.3 L, MCV 96.0, MCH 32.2 H, MCHC 33.5, RDW Std Deviation 50.9 H, RDW Coeff of Vannesa 14.6, Plt Count 228, MPV 9.4, Immature Gran % (Auto) 0.600, Neut % (Auto) 84.5 H, Lymph % (Auto) 6.3 L, [place] % (Auto) 8.3, Eos % (Auto) 0.0, Baso % (Auto) 0.3, Absolute Neuts (auto) 10.0 H, Absolute Lymphs (auto) 0.75 L, Nucleated RBC % 0 11/06/19 06:10: PT 26.8 H, INR 2.5 11/06/19 06:10: Sodium 133 L, Potassium 3.4 L, Chloride 102, Carbon Dioxide 25.0, Anion Gap 6, BUN 18, Creatinine 0.94, Estim Creat Clear Calc 36.85, Est GFR (MDRD) Af Amer 73, Est GFR (MDRD) Non-Af 60, BUN/Creatinine Ratio 19.1, Glucose 185 H, Calcium 8.9 11/06/19 06:10: Magnesium 1.8 11/06/19 06:24: POC Glucose 202 H Current Medications Acetaminophen (Tylenol) 650 mg PO Q6H PRN PRN PRN Reason: Pain Score 1-3/Temp > 100.7 F Hydrocodone Bitart/Acetaminophen ([place] 5mg-325mg) 1 tablet PO Q4H PRN PRN PRN Reason: Mild-Mod Pain (1-5/10) Last Admin: 11/05/19 02:39 Dose: 1 tablet Documented by: Allopurinol (Zyloprim) 300 mg PO DAILY [facility] Last Admin: 11/06/19 10:01 Dose: 300 mg Documented by: Atorvastatin Calcium (Lipitor) 20 mg PO QHS [facility] Last Admin: 11/05/19 22:14 Dose: 20 mg Documented by: Citalopram Hydrobromide (Celexa) 40 mg PO DAILY [facility] Last Admin: 11/05/19 08:40 Dose: 40 mg Documented by: Colesevelam HCl (Welchol) 625 mg GT BIDCM [facility] Last Admin: 11/06/19 10:01 Dose: 625 mg Documented by: Cyclobenzaprine HCl (Flexeril) 5 mg PO TID PRN PRN PRN Reason: SPASMS Dextrose (D50w Syringe) 0 gm IV X1 PRN; Protocol PRN Reason: Hypoglycemia Diphenoxylate HCl/Atropine (Lomotil) 1 tablet PO TIDCM [facility] Last Admin: 11/06/19 10:02 Dose: 1 tablet Documented by: Diphenoxylate HCl/Atropine (Lomotil) 2 tablet PO QHS [facility] Last Admin: 11/05/19 22:15 Dose: 2 tablet Documented by: Duloxetine HCl (Cymbalta) 60 mg PO DAILY [facility] Last Admin: 11/06/19 10:01 Dose: 60 mg Documented by: Ergocalciferol (Vitamin D) 50,000 unit PO QMONTH [facility] Famotidine (Pepcid) 20 mg PO BID [facility] Last Admin: 11/06/19 10:01 Dose: 20 mg Documented by: [facility]) [facility] Last Admin: 11/06/19 10:01 Dose: 145 mg Documented by: Ferrous Sulfate (Ferrous Sulfate) 325 mg PO DAILY@0800 [facility] Last Admin: 11/06/19 10:01 Dose: 325 mg Documented by: Gabapentin (Neurontin) 400 mg PO TIDCM [facility] Last Admin: 11/06/19 10:01 Dose: 400 mg Documented by: Glucagon () 1 mg IM .X1 PRN PRN Reason: Hypoglycemia Hydromorphone HCl (Dilaudid Tablet) 4 mg PO Q6 [facility] Last Admin: 11/06/19 06:26 Dose: 4 mg Documented by: Sodium Chloride () 500 mls @ 15 mls/hr IV PRN PRN PRN Reason: Blood Transfusion Sodium Chloride () 250 mls @ 15 mls/hr IV .[id number] PRN PRN Reason: Saline Flush Sodium Chloride () 250 mls @ 15 mls/hr IV .[id number] PRN PRN Reason: Additional IVPB Infusion Diltiazem HCl 125 mg/ Dextrose 125 mls @ 5 mls/hr IV .Q25H [facility]; Protocol Last Admin: 11/06/19 09:15 Dose: 5 mg/hr, 5 mls/hr Documented by: Amiodarone HCl 360 mg/ (Dextrose) 200 mls @ 16.667 mls/hr CONT INF .Q12H [facility] Last Admin: 11/06/19 11:27 Dose: 0.5 mg/min, 16.7 mls/hr Documented by: Furosemide 500 mg/ N/A 50 mls @ 1 mls/hr CONT INF .Q50H [facility] Last Admin: 11/06/19 10:38 Dose: 10 mg/hr, 1 mls/hr Documented by: Insulin Human Lispro (Humalog Kwikpen (Bkc)) 0 unit SC ACHS [facility]; Protocol Last Admin: 11/06/19 06:26 Dose: 2 units Documented by: Ipratropium [place] (Atrovent) 0.5 mg INHALATION Q4H.RT [facility] Last Admin: 11/06/19 10:56 Dose: 0.5 mg Documented by: Levothyroxine Sodium (Synthroid) 112 mcg PO DAILY@0600 [facility] Last Admin: 11/06/19 06:26 Dose: 112 mcg Documented by: Lidocaine (Lidoderm Patch) 1 patch TOPICAL DAILY [facility]; Protocol Last Admin: 11/06/19 10:03 Dose: 1 patch Documented by: Lisinopril (Zestril) 2.5 mg PO BID [facility] Last Admin: 11/06/19 10:01 Dose: 2.5 mg Documented by: Lorazepam (Ativan) 0.5 mg PO BID PRN PRN Reason: ANXIETY Last Admin: 11/04/19 00:10 Dose: 0.5 mg Documented by: Melatonin (Melatonin) 3 mg PO QHS PRN PRN PRN Reason: INSOMNIA Metoprolol Tartrate (Lopressor (Beta Jameel)) 50 mg PO BID [facility] Last Admin: 11/06/19 10:02 Dose: 50 mg Documented by: Nitroglycerin (Nitrostat) 0.4 mg SUBLINGUAL Q5M PRN PRN Reason: CARDIAC/CHEST PAIN Nitroglycerin (Nitrobid) 0.5 inch TRANSDERM. Q6 [facility] Last Admin: 11/06/19 06:27 Dose: Not Given Documented by: Ondansetron HCl (Zofran) 4 mg IV Q8H PRN PRN PRN Reason: NAUSEA/VOMITING Sodium Chloride () 10 - 40 ml IV UD PRN PRN Reason: SALINE FLUSH Last Admin: 11/06/19 10:01 Dose: 10 ml Documented by: Spironolactone (Aldactone) 25 mg PO BID [facility] Last Admin: 11/06/19 10:01 Dose: 25 mg Documented by: Sucralfate (Carafate) 1 gm PO TIDAC [facility] Last Admin: 11/06/19 06:26 Dose: 1 gm Documented by: STROKE Vital Signs/Narrative: Vital Signs Pulse Resp BP Pulse Ox 11/06/19 10:57 95 16 11/06/19 10:02 99 11/06/19 09:15 99 11/06/19 09:00 96 16 125/84 H 94 Medical Necessity - Tobacco Use Smoking Status: Never smoker Assessment/Plan 1. Afib RVR - cardiology following. Continue amio, cardizem, metoprolol. Echo as below. Still mildly tachy. 2. Acute hypoxic respiratory failure 2/2 Acute on chronic diastolic CHF - Echo EF 65%, 2+ MVI, 1-2+ TVI, RVSP 48 mmHg, 1-2 + PVI. Continue IV lasix, aldactone. Fluid/Na+ restriction, Selvin wrap BL LE, trend I/O. -lasix drip today -repeat CXR without significant improvement. -remains on 6lpm o2 via NC. 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 Hx DVT - coumadin therapeutic 5. HTN - mildly elevated. 6. HLD - statin, fenofibrate 7. Depression/Anxiety - celexa, cymbata, ativan 8. hypothyroidism - tsh normal, continue synthroid. 9. GERD - tagamet, sucralfate DVT ppx: warfarin DC planning: return to SNF when stable This patient was seen by John West PA-C under the supervision of Dr. Patricia <Nele Patricia E - Last Filed: 11/06/19 12:56> Vitals/I&O's: Vital Signs Temp Pulse Resp BP Pulse Ox 97.1 F L 97 16 108/81 H 94 11/06/19 08:00 11/06/19 12:33 11/06/19 10:57 11/06/19 12:33 11/06/19 09:00 Oxygen Flow Rate (L/min) 6 Oxygen Delivery Method Nasal Cannula Weight: 182 lb 1.629 oz Body Mass Index (BMI) 32.5 Finger Stick Blood Glucose 150 Intake and Output for Last 24 Hours 11/04/19 11/05/19 11/06/19 23:59 23:59 23:59 Intake Total 1536.13 / 1551.13 1426.64 / 1436.64 400.23 / 400.23 Output Total 2975 / 2975 2099 / 2099 350 / 350 Balance -1438.87 / -1423.87 -673.36 / -663.36 50.23 / 50.23 Laboratory Results 11/04/19 06:35: Vitamin D 25-Hydroxy 33.0 11/05/19 05:26: B-Natriuretic Peptide 494.1 H 11/05/19 11:55: POC Glucose 240 H 11/05/19 16:49: POC Glucose 172 H 11/05/19 22:12: POC Glucose 185 H 11/06/19 06:10: WBC 11.8 H, RBC 3.26 L, Hgb 10.5 L, Hct 31.3 L, MCV 96.0, MCH 32.2 H, MCHC 33.5, RDW Std Deviation 50.9 H, RDW Coeff of Vannesa 14.6, Plt Count 228, MPV 9.4, Immature Gran % (Auto) 0.600, Neut % (Auto) 84.5 H, Lymph % (Auto) 6.3 L, [place] % (Auto) 8.3, Eos % (Auto) 0.0, Baso % (Auto) 0.3, Absolute Neuts (auto) 10.0 H, Absolute Lymphs (auto) 0.75 L, Nucleated RBC % 0 11/06/19 06:10: PT 26.8 H, INR 2.5 11/06/19 06:10: Sodium 133 L, Potassium 3.4 L, Chloride 102, Carbon Dioxide 25.0, Anion Gap 6, BUN 18, Creatinine 0.94, Estim Creat Clear Calc 36.85, Est GFR (MDRD) Af Amer 73, Est GFR (MDRD) Non-Af 60, BUN/Creatinine Ratio 19.1, Glucose 185 H, Calcium 8.9 11/06/19 06:10: Magnesium 1.8 11/06/19 06:24: POC Glucose 202 H 11/06/19 12:30: POC Glucose 249 H Current Medications Acetaminophen (Tylenol) 650 mg PO Q6H PRN PRN PRN Reason: Pain Score 1-3/Temp > 100.7 F Hydrocodone Bitart/Acetaminophen ([place] 5mg-325mg) 1 tablet PO Q4H PRN PRN PRN Reason: Mild-Mod Pain (1-5/10) Last Admin: 11/05/19 02:39 Dose: 1 tablet Documented by: Allopurinol (Zyloprim) 300 mg PO DAILY [facility] Last Admin: 11/06/19 10:01 Dose: 300 mg Documented by: Atorvastatin Calcium (Lipitor) 20 mg PO QHS [facility] Last Admin: 11/05/19 22:14 Dose: 20 mg Documented by: Citalopram Hydrobromide (Celexa) 40 mg PO DAILY [facility] Last Admin: 11/05/19 08:40 Dose: 40 mg Documented by: Colesevelam [facility] (Welchol) [facility] Last Admin: 11/06/19 10:01 Dose: 625 mg Documented by: Cyclobenzaprine HCl (Flexeril) 5 mg PO TID PRN PRN PRN Reason: SPASMS Dextrose (D50w Syringe) 0 gm IV X1 PRN; Protocol PRN Reason: Hypoglycemia Diphenoxylate HCl/Atropine (Lomotil) 1 tablet PO TIDCM [facility] Last Admin: 11/06/19 10:02 Dose: 1 tablet Documented by: Diphenoxylate HCl/Atropine (Lomotil) 2 tablet PO QHS [facility] Last Admin: 11/05/19 22:15 Dose: 2 tablet Documented by: Duloxetine HCl (Cymbalta) 60 mg PO DAILY [facility] Last Admin: 11/06/19 10:01 Dose: 60 mg Documented by: Ergocalciferol (Vitamin D) 50,000 unit PO QMONTH [facility] Famotidine (Pepcid) 20 mg PO BID [facility] Last Admin: 11/06/19 10:01 Dose: 20 mg Documented by: Fenofibrate (Tricor) [facility] Last Admin: 11/06/19 10:01 Dose: 145 mg Documented by: Ferrous Sulfate (Ferrous Sulfate) 325 mg PO DAILY@0800 [facility] Last Admin: 11/06/19 10:01 Dose: 325 mg Documented by: Gabapentin (Neurontin) 400 mg PO TIDCM [facility] Last Admin: 11/06/19 10:01 Dose: 400 mg Documented by: Glucagon () 1 mg IM .X1 PRN PRN Reason: Hypoglycemia Hydromorphone HCl (Dilaudid Tablet) 4 mg PO Q6 [facility] Last Admin: 11/06/19 12:39 Dose: 4 mg Documented by: Sodium Chloride () 500 mls @ 15 mls/hr IV PRN PRN PRN Reason: Blood Transfusion Sodium Chloride () 250 mls @ 15 mls/hr IV .[id number] PRN PRN Reason: Saline Flush Sodium Chloride () 250 mls @ 15 mls/hr IV .[id number] PRN PRN Reason: Additional IVPB Infusion Diltiazem HCl 125 mg/ Dextrose 125 mls @ 5 mls/hr IV .Q25H [facility]; Protocol Last Admin: 11/06/19 09:15 Dose: 5 mg/hr, 5 mls/hr Documented by: Amiodarone HCl 360 mg/ (Dextrose) 200 mls @ 16.667 mls/hr CONT INF .Q12H [facility] Last Admin: 11/06/19 11:27 Dose: 0.5 mg/min, 16.7 mls/hr Documented by: Furosemide 500 mg/ N/A 50 mls @ 1 mls/hr CONT INF .Q50H [facility] Last Admin: 11/06/19 10:38 Dose: 10 mg/hr, 1 mls/hr Documented by: Insulin Human Lispro (Humalog Kwikpen (Bkc)) 0 unit SC ACHS [facility]; Protocol Last Admin: 11/06/19 12:34 Dose: 3 units Documented by: Ipratropium [place] (Atrovent) 0.5 mg INHALATION Q4H.RT [facility] Last Admin: 11/06/19 10:56 Dose: 0.5 mg Documented by: Levothyroxine Sodium (Synthroid) 112 mcg PO DAILY@0600 [facility] Last Admin: 11/06/19 06:26 Dose: 112 mcg Documented by: Lidocaine (Lidoderm Patch) 1 patch TOPICAL DAILY [facility]; Protocol Last Admin: 11/06/19 10:03 Dose: 1 patch Documented by: Lisinopril (Zestril) 2.5 mg PO BID [facility] Last Admin: 11/06/19 10:01 Dose: 2.5 mg Documented by: Lorazepam (Ativan) 0.5 mg PO BID PRN PRN Reason: ANXIETY Last Admin: 11/04/19 00:10 Dose: 0.5 mg Documented by: Melatonin (Melatonin) 3 mg PO QHS PRN PRN PRN Reason: INSOMNIA Metoprolol Tartrate (Lopressor (Beta Jameel)) 50 mg PO BID [facility] Last Admin: 11/06/19 10:02 Dose: 50 mg Documented by: Nitroglycerin (Nitrostat) 0.4 mg SUBLINGUAL Q5M PRN PRN Reason: CARDIAC/CHEST PAIN Nitroglycerin (Nitrobid) 0.5 inch TRANSDERM. Q6 [facility] Last Admin: 11/06/19 12:33 Dose: 0.5 inch Documented by: Ondansetron HCl (Zofran) 4 mg IV Q8H PRN PRN PRN Reason: NAUSEA/VOMITING Sodium Chloride () 10 - 40 ml IV UD PRN PRN Reason: SALINE FLUSH Last Admin: 11/06/19 10:01 Dose: 10 ml Documented by: Spironolactone (Aldactone) 25 mg PO BID [facility] Last Admin: 11/06/19 10:01 Dose: 25 mg Documented by: Sucralfate (Carafate) 1 gm PO TIDAC [facility] Last Admin: 11/06/19 12:34 Dose: 1 gm Documented by: STROKE Vital Signs/Narrative: Vital Signs Pulse Resp BP Pulse Ox 11/06/19 12:33 97 108/81 H 11/06/19 10:57 95 16 11/06/19 10:02 99 11/06/19 09:15 99 11/06/19 09:00 96 16 125/84 H 94 Assessment/Plan Hospitalist note: I am seeing this patient in conjunction with John West. I independently seen and examined the patient. Progress note above and laboratory data reviewed and I concur with the above treatment plan. Patient still complaining of shortness of breath and chest tightness, almost no improvement. Complains of cough as well, no sputum production. She is very weak and not able to ambulate adequately. She is afebrile, blood pressure is borderline, heart rate has been in the high 90s to 100s, pulse ox is 94% on 6 L. - Physical Exam General: Alert, Oriented x3, Cooperative, mildly short of breath. HEENT: Atraumatic, PERRLA, EOMI. Neck: Supple, No JVD, Negative Carotid Bruits, Trachea Midline, Thyroid Normal. Lungs: Decreased breath sounds bilateral, bilateral basal crackles, no wheezes or rhonchi, short of breath.. Cardiovascular: Irregular rate and rhythm, Normal S1, Normal S2, PMI Normal, tachycardia. Abdomen: Bowel Sounds Present, Soft, Non Tender, Non-Distended, No Hepato-splenomegaly. Extremities: No clubbing, No cyanosis, + edema Skin: No rashes, No breakdown Neurological: Cranial nerves are intact, neuro grossly intact Assessment and plan: #1 acute on chronic diastolic CHF: Started on IV Lasix drip, on metoprolol and Aldactone. Still symptomatic and requiring oxygen at 6 L. 2D echocardiogram revealed ejection fraction of 65%, moderately enlarged left atrium, moderately enlarged right atrium, moderate MR, moderate aortic stenosis, RVSP 48 above. EKG revealed A. fib with RVR. Cardiology on the case. Plan to continue IV diuresis with IV Lasix drip. #2 A. fib with RVR: Remained on IV amiodarone as well as Cardizem drip. Still in A. fib, heart rate has been around 90-100, blood pressure borderline. Cardiology on the case. Patient was on Coumadin, INR is 2.5. #3 acute hypoxic respiratory failure: Secondary to acute CHF. She is requiring up to 6 L of oxygen, going up. Plan to continue IV diuresis as above. #4 other chronic medical problems: Stable, continue current medications as above. This note was generated with [employer] software. It may contain incorrect words, spelling, and punctuation that were not noted in checking the note before signing. Code Visit Inpatient E&M: 62675 Subs Hosp L2
[2019-11-06 12:50] LABS: Bedside Glucose 249 mg/dL (70-110)
--- NOTE | 2019-11-06 13:04 | CASEMGMT ---
SW spoke with patient and she said she is not sure if she will return to [place] or need skilled at d/c. SW told her SW will follow along and SW will also keep in touch with [facility]. Bridgette HERNANDEZ
[2019-11-06 17:31] LABS: Bedside Glucose 240 mg/dL (70-110)
[2019-11-06] MEDS: Citalopram 40 MG TABLET PO (17:48)
[2019-11-06] MEDS: Atorvastatin Calcium 20 MG Tablet PO (22:36)
[2019-11-06] MEDS: Diphenoxylate/Atrop 1 Tablet 2 TABLET PO (22:36)
--- NOTE | 2019-11-06 22:37 | NURSING ---
meds scanned, but did not save. Entered manually.
[2019-11-06 23:55] LABS: Bedside Glucose 176 mg/dL (70-110)
[2019-11-07] VITALS (34 sets, daily range): BP systolic 89–135; BP diastolic 57–99; PULSE 102–131; RESP 15–23; TEMP 36.4–37.1; O2SAT 94–100
[2019-11-07] MEDS: Nitroglycerin Oint 1 INCH PACKET 0.5 INCH TRANSDERM. ×4 (00:39→18:36)
[2019-11-07 01:11] LABS: Bedside Glucose 183 mg/dL (70-110)
[2019-11-07] MEDS: Levothyroxine 112 MCG Tablet PO (06:54)
[2019-11-07] MEDS: Insulin Lispro 100 UNIT/ML INSULN.PEN SC ×4 (06:54→21:34)
[2019-11-07] MEDS: Sucralfate 1 GM Tablet PO ×3 (06:54→18:26)
[2019-11-07] MEDS: Ipratropium 0.5 MG/2.5 ML SOLUTION INHALATION ×5 (07:17→22:52)
[2019-11-07 07:18] LABS: Absolute Lymphocyte Count 0.58 X10^3/uL (0.83-4.51); Absolute Neutrophil Count 10.5 X10^3/uL (2.0-7.7); Basophil# 0.03 X10^3/uL; Basophil% 0.2 % (0-1); Hematocrit 38.2 % (37-47); Hemoglobin 12.5 g/dL (12.0-15.0); Lymphocyte # 0.58 X10^3/ul (4.0); Lymphocyte % 4.7 % (19-41); Mean Corp Hgb Conc 32.7 g/dL (32-36); Mean Corpuscular Volume 97.7 fL (81-99); Mean Platelet Vol. 9.3 fl (6.2-12.0); Monocyte% 8.2 % (0-10); NRBC Flagged by Analyzer 0.2 % (0-5); Neutrophil # 10.54 X10^3/uL (2.7-7.7); Neutrophil % 86.3 % (47-70); POSITIVE DIFFERENTIAL YES; Platelet Count 284 K/mm3 (150-450); RBC Distribution Width SD 53.1 fl (35.1-43.9); Red Blood Count 3.91 M/mm3 (4.2-5.4); White Blood Count 12.2 K/mm3 (4.4-11.0)
[2019-11-07 07:23] LABS: Differential Indicated SCAN CRITERIA MET
[2019-11-07 07:34] LABS: International Normalized Ratio 1.9; Prothrombin Time (Protime)PT. 21.4 SECONDS (11.7-14.9)
[2019-11-07 07:47] LABS: Anion Gap 7 (5-15); BUN 15 mg/dL (7-18); BUN/Creat Ratio 16.8 RATIO (10-20); Calcium,Total 9.2 mg/dL (8.5-10.1); Chloride 97 mmol/L (98-107); Creatinine, Serum 0.89 mg/dL (0.55-1.02); EST Glomerular Filtration Rate 64 mL/min (>60); Est Glom Filt Rate - Afr Amer 77 mL/min (>60); Estimated Creatinine Clearance 38.92 ml/min; Glucose 213 mg/dL (74-106); Potassium 3.2 mmol/L (3.5-5.1); Sodium Level 135 mmol/L (136-145)
[2019-11-07] MEDS: Gabapentin 400 MG Capsule PO ×3 (08:50→18:26)
[2019-11-07] MEDS: Ferrous Sulfate 325 MG Tablet PO (08:50)
[2019-11-07] MEDS: Fenofibrate 145 MG Tablet PO (08:50)
[2019-11-07] MEDS: 0.9% Saline Lock 10 ML Syringe IV (08:56)
[2019-11-07] MEDS: Ondansetron 4 MG/2 ML Vial IV (08:56)
[2019-11-07] MEDS: Lidocaine 5% Patch 1 PATCH TOPICAL (10:56)
[2019-11-07] MEDS: HYDROmorphone 2 MG TABLET 4 MG PO (10:57)
[2019-11-07] MEDS: Famotidine 20 MG Tablet PO ×2 (10:57→21:35)
[2019-11-07] MEDS: Citalopram 40 MG TABLET PO (10:58)
[2019-11-07] MEDS: Spironolactone 25 MG Tablet PO ×2 (10:58→21:34)
[2019-11-07] MEDS: DULoxetine Hcl 60 MG Capsule PO (10:59)
[2019-11-07] MEDS: Allopurinol 300 MG Tablet PO (10:59)
--- NOTE | 2019-11-07 11:03 | PCM.PN.CARD ---
Subjectve: The patient appears to be somewhat more awake and alert and responsive today. She continues to have shortness of breath and continues to require O2 nasal cannula. She states she has felt nauseated. Objective: Vital Signs Temp Pulse Resp BP Pulse Ox 98.2 F 110 H 16 111/81 H 95 11/07/19 09:00 11/07/19 09:00 11/07/19 09:00 11/07/19 09:00 11/07/19 09:00 Oxygen Flow Rate (L/min) 4 Oxygen Delivery Method Nasal Cannula Weight: 183 lb 13.848 oz Body Mass Index (BMI) 32.5 Finger Stick Blood Glucose 150 Intake and Output for Last 24 Hours 11/05/19 11/06/19 11/07/19 23:59 23:59 23:59 Intake Total 1426.64 / 1436.64 1255.74 / 1272.44 247.00 / 247.00 Output Total 2100 / 2100 1825 / 1825 1700 / 1700 Balance -673.36 / -663.36 -569.26 / -552.56 -1453.00 / -1453.00 General: Awake, Alert, Oriented x 3, Cooperative, No Acute Distress HEENT: Atraumatic, Normocephalic, PERRL, EOMI, Sclera Non Icteric Oral: Moist Mucosa Neck: Supple, Good ROM, No JVD Lungs: Diminished Chas Bases Cardiovascular: Irregular Rhythm, Normal S1, Normal S2 Murmur Murmur: Grade 2/6, Soft, Mid Systolic, LLSB Abdomen: Bowel Sounds Present, Soft Extremities: - - Bilateral lower extremity Selvin wraps Psych/Mental Status: Flat Affect 11/07/19 06:57: WBC 12.2 H, RBC 3.91 L, Hgb 12.5, Hct 38.2, MCV 97.7, MCH 32.0, MCHC 32.7, Plt Count 284, MPV 9.3, Immature Gran % (Auto) 0.600, Neut % (Auto) 86.3 H, Lymph % (Auto) 4.7 L, [place] % (Auto) 8.2, Eos % (Auto) 0.0, Baso % (Auto) 0.2, Absolute Neuts (auto) 10.5 H, Nucleated RBC % 0.2 01/14/20 06:57: PT 21.4 H, INR 1.9 11/07/19 06:57: Sodium 135 L, Potassium 3.2 L, Chloride 97 L, Carbon Dioxide 31.0, Anion Gap 7, BUN 15, Creatinine 0.89, Est GFR (MDRD) Af Amer 77, Est GFR (MDRD) Non-Af 64, BUN/Creatinine Ratio 16.8, Glucose 213 H, Calcium 9.2 Rhythm: Atrial fibrillation Medical Necessity - Tobacco Use Smoking Status: Never smoker Assessment/Plan 1. Atrial fibrillation The patient presents with atrial fibrillation. The exact duration is unknown. She is being treated with rate control therapy. 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 He has been placed on additional medical therapy with IV amiodarone and attempt to assist with rate control and potentially regain sinus rhythm. This will be transitioned to oral amiodarone therapy. Also depending upon her clinical course she may need further noninvasive or invasive cardiovascular studies as deemed appropriate. 2. Valvular heart disease She does appear to have by examination a cardiac murmur and by her transthoracic echocardiogram evidence of underlying valvular heart disease as noted. This involves both mitral and tricuspid valve regurgitation and aortic valve stenosis. This allowed to be taken into consideration during her ongoing evaluation and care. 3. Congestive heart failure It appears she has developed evidence concerning for CHF. It is unclear whether her atrial fibrillation superimposed upon her underlying valvular heart related issues, etc., is exacerbating her CHF. At the moment she is being treated with multiple medications. As her clinical course progresses consideration will have to be given as to whether or not she is a candidate for further cardiovascular evaluation which may include studies such as diagnostic cardiac catheterization to further evaluate coronary anatomy, etc.,. However, this may depend upon her once and wishes at her age, etc. 4. Hyperlipidemia She will continue medical management as deemed appropriate. 5. Diabetes mellitus She will continue under the care of internal medicine. 6. Hypo-thyroidism She will continue medical management as deemed appropriate. 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 Her INR is decreasing. Thus would not be very unreasonable to provide bridging anticoagulant therapy. Overall, at the present time, she will continue attempts at medical optimization. Hopefully she will improve with respect to her clinical status, vital signs, etc. She will consider how far she wants to go for further cardiac diagnostic studies/intervention. The patient's case has been previously discussed and reviewed with the patient. This note was generated using a voice recognition system and there may be incorrect words, spelling or punctuation that were not noted when reviewing the office note prior to saving.
[2019-11-07] MEDS: Aspirin E.C. 81 MG Tablet PO (11:15)
[2019-11-07] MEDS: Metoprolol Tartrate 100 MG Tablet PO ×2 (11:15→21:35)
[2019-11-07] MEDS: Amiodarone 200 MG Tablet PO ×2 (11:15→21:35)
[2019-11-07] MEDS: Lisinopril 2.5 MG Tablet PO ×2 (11:20→21:35)
[2019-11-07 11:25] LABS: Bedside Glucose 205 mg/dL (70-110)
--- NOTE | 2019-11-07 11:32 | RAD_ITS ---
STUDY: X-RAY CHEST REASON FOR EXAM: Female, 84 years old. SOB AFIB TECHNIQUE: Single AP portable view of the chest. COMPARISON: November 06, 2019 FINDINGS: Mild consolidation/pulmonary edema of the right upper lower lobes and left lower lobe appears unchanged from the prior study. Small bilateral pleural effusions are unchanged.. Normal size heart. Stable osseous and mediastinal structures. Right shoulder prosthesis mentioned. RAD/Chest 1 View (Portable) IMPRESSION: Mild consolidation/pulmonary edema of both lungs unchanged from the prior study. Electronically Signed: Bipin Woo MD at 13:52 EST , Service support ,
--- NOTE | 2019-11-07 11:49 | CASEMGMT ---
Social Work SW met with pt and she confimred that if she needs SNF she would like [facility]. Phone call to Briana at [facility] and he confirms that they do have a bed available in SNF when pt is ready for d/c. Pt made aware. ANANYA Weston
[2019-11-07] MEDS: Diphenoxylate/Atrop 1 Tablet PO ×2 (12:58→18:34)
[2019-11-07 13:00] LABS: Bedside Glucose 220 mg/dL (70-110)
--- NOTE | 2019-11-07 13:10 | PN_ITS ---
<John West - Last Filed: 11/07/19 13:10> Reason for Visit: SOB Subjective: Patients breathing is improving. She is now requiring 3.5-4lpm o2 via NC. She continues to have chest pressure. No LH/dizziness. She is very tearful today, she hurts all over after having her position adjusted in bed. She is also very tearful this AM. No fever/chills. No N/V/D. Vitals/I&O's: Vital Signs Temp Pulse Resp BP Pulse Ox 98 F 118 H 20 H 119/87 H 95 11/07/19 11:00 11/07/19 13:00 11/07/19 11:16 11/07/19 13:00 11/07/19 11:00 Oxygen Flow Rate (L/min) 4 Oxygen Delivery Method Nasal Cannula Weight: 183 lb 13.848 oz Body Mass Index (BMI) 32.5 Finger Stick Blood Glucose 150 Intake and Output for Last 24 Hours 11/05/19 11/06/19 11/07/19 23:59 23:59 23:59 Intake Total 1426.64 / 1436.64 1255.74 / 1272.44 654.71 / 654.71 Output Total 2100 / 2100 1825 / 1825 2550 / 2550 Balance -673.36 / -663.36 -569.26 / -552.56 -1895.29 / -1895.29 General: Alert, Oriented x3, Cooperative HEENT: Atraumatic, PERRLA, EOMI, Normocephalic Neck: Supple, No JVD, Negative Carotid Bruits Lungs: No rales, Diminished Cardiovascular: Irregular Rate, Tachycardic Abdomen: Bowel Sounds Present, Soft, Non Tender Extremities: No edema, Capillary Refill Less than 3 Seconds Skin: No rashes, No breakdown Musculoskeletal: No Tenderness to Palpation of Joints or Extremities Neurological: Cranial nerves II-XII grossly intact Psych/Mental Status: Depressed, Alert and oriented to time, place, person, mood and affect Laboratory Results 11/06/19 17:22: POC Glucose 240 H 11/06/19 22:20: POC Glucose 176 H 11/07/19 00:47: POC Glucose 183 H 11/07/19 06:43: POC Glucose 205 H 11/07/19 06:57: WBC 12.2 H, RBC 3.91 L, Hgb 12.5, Hct 38.2, MCV 97.7, MCH 32.0, MCHC 32.7, RDW Std Deviation 53.1 H, RDW Coeff of Vannesa 15.0 H, Plt Count 284, MPV 9.3, Immature Gran % (Auto) 0.600, Neut % (Auto) 86.3 H, Lymph % (Auto) 4.7 L, [place] % (Auto) 8.2, Eos % (Auto) 0.0, Baso % (Auto) 0.2, Absolute Neuts (auto) 10.5 H, Absolute Lymphs (auto) 0.58 L, Nucleated RBC % 0.2, Differential Comment COMMENT 11/07/19 06:57: PT 21.4 H, INR 1.9 11/07/19 06:57: Sodium 135 L, Potassium 3.2 L, Chloride 97 L, Carbon Dioxide 31.0, Anion Gap 7, BUN 15, Creatinine 0.89, Estim Creat Clear Calc 38.92, Est GFR (MDRD) Af Amer 77, Est GFR (MDRD) Non-Af 64, BUN/Creatinine Ratio 16.8, Glucose 213 H, Calcium 9.2 11/07/19 12:48: POC Glucose 220 H Current Medications Acetaminophen (Tylenol) 650 mg PO Q6H PRN PRN PRN Reason: Pain Score 1-3/Temp > 100.7 F Hydrocodone Bitart/Acetaminophen ([place] 5mg-325mg) 1 tablet PO Q8H PRN PRN PRN Reason: Mild-Mod Pain (1-5/10) Allopurinol (Zyloprim) 300 mg PO DAILY ON LICENSE OF [facility] Last Admin: 11/07/19 10:59 Dose: 300 mg Documented by: Amiodarone HCl (Cordarone) 200 mg PO TID ON LICENSE OF [facility] Stop: 11/13/19 22:01 Last Admin: 11/07/19 11:15 Dose: 200 mg Documented by: Amiodarone HCl (Cordarone) 200 mg PO BID ON LICENSE OF [facility] Stop: 11/27/19 22:01 Amiodarone HCl (Cordarone) 200 mg PO DAILY ON LICENSE OF [facility] Aspirin (Ecotrin) 81 mg PO DAILY@0800 ON LICENSE OF [facility] Last Admin: 11/07/19 11:15 Dose: 81 mg Documented by: Atorvastatin Calcium (Lipitor) 20 mg PO QHS ON LICENSE OF [facility] Last Admin: 11/06/19 22:36 Dose: 20 mg Documented by: Citalopram Hydrobromide (Celexa) 40 mg PO DAILY ON LICENSE OF [facility] Last Admin: 11/07/19 10:58 Dose: 40 mg Documented by: Colesevelam HCl (Welchol) [facility] Last Admin: 11/07/19 08:50 Dose: 625 mg Documented by: Cyclobenzaprine HCl (Flexeril) 5 mg PO TID PRN PRN PRN Reason: SPASMS Dextrose (D50w Syringe) 0 gm IV X1 PRN; Protocol PRN Reason: Hypoglycemia Diphenoxylate HCl/Atropine (Lomotil) 1 tablet PO TIDCM ON LICENSE OF [facility] Last Admin: 11/07/19 12:58 Dose: 1 tablet Documented by: Diphenoxylate HCl/Atropine (Lomotil) 2 tablet PO QHS ON LICENSE OF [facility] Last Admin: 11/06/19 22:36 Dose: 2 tablet Documented by: Duloxetine HCl (Cymbalta) 60 mg PO DAILY ON LICENSE OF [facility] Last Admin: 11/07/19 10:59 Dose: 60 mg Documented by: Enoxaparin Sodium (Lovenox) 80 mg SC Q12@0600,1800 ON LICENSE OF [facility] Ergocalciferol (Vitamin D) 50,000 unit PO QMONTH ON LICENSE OF [facility] Famotidine (Pepcid) 20 mg PO BID ON LICENSE OF [facility] Last Admin: 11/07/19 10:57 Dose: 20 mg Documented by: Fenofibrate (Tricor) [facility] Last Admin: 11/07/19 08:50 Dose: 145 mg Documented by: Ferrous Sulfate (Ferrous Sulfate) 325 mg PO DAILY@0800 ON LICENSE OF [facility] Last Admin: 11/07/19 08:50 Dose: 325 mg Documented by: Gabapentin (Neurontin) 400 mg PO TIDCM ON LICENSE OF [facility] Last Admin: 11/07/19 12:56 Dose: 400 mg Documented by: Glucagon () 1 mg IM .X1 PRN PRN Reason: Hypoglycemia Hydromorphone HCl (Dilaudid Tablet) 4 mg PO BID PRN PRN PRN Reason: Pain Score 1-10/10 Last Admin: 11/07/19 10:57 Dose: 4 mg Documented by: Sodium Chloride () 500 mls @ 15 mls/hr IV PRN PRN PRN Reason: Blood Transfusion Sodium Chloride () 250 mls @ 15 mls/hr IV .[id number] PRN PRN Reason: Saline Flush Sodium Chloride () 250 mls @ 15 mls/hr IV .[id number] PRN PRN Reason: Additional IVPB Infusion Furosemide 500 mg/ N/A 50 mls @ 1 mls/hr CONT INF .Q50H ON LICENSE OF [facility] Last Infusion: 11/06/19 13:00 Dose: 10 mg/hr, 1 mls/hr Documented by: Insulin Human Lispro (Humalog Kwikpen (Bkc)) 0 unit SC ACHS ON LICENSE OF [facility]; Protocol Last Admin: 11/07/19 12:50 Dose: 2 units Documented by: Ipratropium Parmele (Atrovent) 0.5 mg INHALATION Q4H.RT ON LICENSE OF [facility] Last Admin: 11/07/19 11:16 Dose: 0.5 mg Documented by: Levothyroxine Sodium (Synthroid) 112 mcg PO DAILY@0600 ON LICENSE OF [facility] Last Admin: 11/07/19 06:54 Dose: 112 mcg Documented by: Lidocaine (Lidoderm Patch) 1 patch TOPICAL DAILY ON LICENSE OF [facility]; Protocol Last Admin: 11/07/19 10:56 Dose: 1 patch Documented by: Lisinopril (Zestril) 2.5 mg PO BID ON LICENSE OF [facility] Last Admin: 11/07/19 11:20 Dose: 2.5 mg Documented by: Lorazepam (Ativan) 0.5 mg PO BID PRN PRN Reason: ANXIETY Last Admin: 11/04/19 00:10 Dose: 0.5 mg Documented by: Melatonin (Melatonin) 3 mg PO QHS PRN PRN PRN Reason: INSOMNIA Metoprolol Tartrate (Lopressor (Beta Jameel)) 100 mg PO BID ON LICENSE OF [facility] Last Admin: 11/07/19 11:15 Dose: 100 mg Documented by: Nitroglycerin (Nitrostat) 0.4 mg SUBLINGUAL Q5M PRN PRN Reason: CARDIAC/CHEST PAIN Nitroglycerin (Nitrobid) 0.5 inch TRANSDERM. Q6 ON LICENSE OF [facility] Last Admin: 11/07/19 13:00 Dose: 0.5 inch Documented by: Ondansetron HCl (Zofran) 4 mg IV Q8H PRN PRN PRN Reason: NAUSEA/VOMITING Last Admin: 11/07/19 08:56 Dose: 4 mg Documented by: Potassium Chloride (K-Dur) 20 meq [facility] Sodium Chloride () 10 - 40 ml IV UD PRN PRN Reason: SALINE FLUSH Last Admin: 11/07/19 08:56 Dose: 20 ml Documented by: Spironolactone (Aldactone) 25 mg PO BID ON LICENSE OF [facility] Last Admin: 11/07/19 10:58 Dose: 25 mg Documented by: Sucralfate (Carafate) 1 gm PO TIDAC ON LICENSE OF [facility] Last Admin: 11/07/19 12:50 Dose: 1 gm Documented by: STROKE Vital Signs/Narrative: Vital Signs Temp Pulse Resp BP Pulse Ox 11/07/19 13:00 118 H 119/87 H 11/07/19 12:20 114 H 11/07/19 11:16 120 H 20 H 11/07/19 11:15 127 H 113/74 11/07/19 11:00 98 F 127 H 17 113/74 95 Medical Necessity - Tobacco Use Smoking Status: Never smoker Assessment/Plan 1. Afib RVR - cardiology following. Continue amio, metoprolol. Echo as below. Rate is still poorly controlled. 2. Acute hypoxic respiratory failure 2/2 Acute on chronic diastolic CHF - Echo EF 65%, 2+ MVI, 1-2+ TVI, RVSP 48 mmHg, 1-2 + PVI. Continue IV lasix, aldactone. Fluid/Na+ restriction, Selvin wrap BL LE, trend I/O. -good output with lasix drip -replace K, recheck mag/phos -O2 demand is decreasing. -CO2 is trending up, but still in acceptable range. 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 Hx DVT - coumadin 5. HTN - mildly elevated. 6. HLD - statin, fenofibrate 7. Depression/Anxiety - celexa, cymbata, ativan 8. hypothyroidism - tsh normal, continue synthroid. 9. GERD - tagamet, sucralfate DVT ppx: warfarin DC planning: return to SNF when stable This patient was seen by John West PA-C under the supervision of Dr. Patricia <Neel Patricia - Last Filed: 11/07/19 14:02> Vitals/I&O's: Vital Signs Temp Pulse Resp BP Pulse Ox 98 F 118 H 20 H 119/87 H 95 11/07/19 11:00 11/07/19 13:00 11/07/19 11:16 11/07/19 13:00 11/07/19 11:00 Oxygen Flow Rate (L/min) 4 Oxygen Delivery Method Nasal Cannula Weight: 183 lb 13.848 oz Body Mass Index (BMI) 32.5 Finger Stick Blood Glucose 150 Intake and Output for Last 24 Hours 11/05/19 11/06/19 11/07/19 23:59 23:59 23:59 Intake Total 1426.64 / 1436.64 1255.74 / 1272.44 654.71 / 654.71 Output Total 2100 / 2100 1825 / 1825 2550 / 2550 Balance -673.36 / -663.36 -569.26 / -552.56 -1895.29 / -1895.29 Laboratory Results 11/06/19 17:22: POC Glucose 240 H 11/06/19 22:20: POC Glucose 176 H 11/07/19 00:47: POC Glucose 183 H 11/07/19 06:43: POC Glucose 205 H 11/07/19 06:57: WBC 12.2 H, RBC 3.91 L, Hgb 12.5, Hct 38.2, MCV 97.7, MCH 32.0, MCHC 32.7, RDW Std Deviation 53.1 H, RDW Coeff of Vannesa 15.0 H, Plt Count 284, MPV 9.3, Immature Gran % (Auto) 0.600, Neut % (Auto) 86.3 H, Lymph % (Auto) 4.7 L, [place] % (Auto) 8.2, Eos % (Auto) 0.0, Baso % (Auto) 0.2, Absolute Neuts (auto) 10.5 H, Absolute Lymphs (auto) 0.58 L, Nucleated RBC % 0.2, Differential Comment COMMENT 11/07/19 06:57: PT 21.4 H, INR 1.9 11/07/19 06:57: Sodium 135 L, Potassium 3.2 L, Chloride 97 L, Carbon Dioxide 31.0, Anion Gap 7, BUN 15, Creatinine 0.89, Estim Creat Clear Calc 38.92, Est GFR (MDRD) Af Amer 77, Est GFR (MDRD) Non-Af 64, BUN/Creatinine Ratio 16.8, Glucose 213 H, Calcium 9.2 11/07/19 06:57: Phosphorus 1.8 L, Magnesium 1.7 11/07/19 12:48: POC Glucose 220 H Current Medications Acetaminophen (Tylenol) 650 mg PO Q6H PRN PRN PRN Reason: Pain Score 1-3/Temp > 100.7 F Hydrocodone Bitart/Acetaminophen ([place] 5mg-325mg) 1 tablet PO Q8H PRN PRN PRN Reason: Mild-Mod Pain (1-5/10) Allopurinol (Zyloprim) 300 mg PO DAILY ON LICENSE OF [facility] Last Admin: 11/07/19 10:59 Dose: 300 mg Documented by: Amiodarone HCl (Cordarone) 200 mg PO TID ON LICENSE OF [facility] Stop: 11/13/19 22:01 Last Admin: 11/07/19 11:15 Dose: 200 mg Documented by: Amiodarone HCl (Cordarone) 200 mg PO BID ON LICENSE OF [facility] Stop: 11/27/19 22:01 Amiodarone HCl (Cordarone) 200 mg PO DAILY ON LICENSE OF [facility] Aspirin (Ecotrin) 81 mg PO DAILY@0800 ON LICENSE OF [facility] Last Admin: 11/07/19 11:15 Dose: 81 mg Documented by: Atorvastatin Calcium (Lipitor) 20 mg PO QHS ON LICENSE OF [facility] Last Admin: 11/06/19 22:36 Dose: 20 mg Documented by: Citalopram Hydrobromide (Celexa) 40 mg PO DAILY ON LICENSE OF [facility] Last Admin: 11/07/19 10:58 Dose: 40 mg Documented by: Colesevelam HCl (Welchol) 625 mg GT BIDCM ON LICENSE OF [facility] Last Admin: 11/07/19 08:50 Dose: 625 mg Documented by: Cyclobenzaprine HCl (Flexeril) 5 mg PO TID PRN PRN PRN Reason: SPASMS Dextrose (D50w Syringe) 0 gm IV X1 PRN; Protocol PRN Reason: Hypoglycemia Diphenoxylate HCl/Atropine (Lomotil) 1 tablet PO TIDCM ON LICENSE OF [facility] Last Admin: 11/07/19 12:58 Dose: 1 tablet Documented by: Diphenoxylate HCl/Atropine (Lomotil) 2 tablet PO QHS ON LICENSE OF [facility] Last Admin: 11/06/19 22:36 Dose: 2 tablet Documented by: Duloxetine HCl (Cymbalta) 60 mg PO DAILY ON LICENSE OF [facility] Last Admin: 11/07/19 10:59 Dose: 60 mg Documented by: Enoxaparin Sodium (Lovenox) 80 mg SC Q12@0600,1800 ON LICENSE OF [facility] Ergocalciferol (Vitamin D) 50,000 unit PO QMONTH ON LICENSE OF [facility] Famotidine (Pepcid) 20 mg PO BID ON LICENSE OF [facility] Last Admin: 11/07/19 10:57 Dose: 20 mg Documented by: Fenofibrate (Tricor) 145 mg PO DAILYCM ON LICENSE OF [facility] Last Admin: 11/07/19 08:50 Dose: 145 mg Documented by: Ferrous Sulfate (Ferrous Sulfate) 325 mg PO DAILY@0800 ON LICENSE OF [facility] Last Admin: 11/07/19 08:50 Dose: 325 mg Documented by: Gabapentin (Neurontin) 400 mg PO TIDCM ON LICENSE OF [facility] Last Admin: 11/07/19 12:56 Dose: 400 mg Documented by: Glucagon () 1 mg IM .X1 PRN PRN Reason: Hypoglycemia Hydromorphone HCl (Dilaudid Tablet) 4 mg PO BID PRN PRN PRN Reason: Pain Score 1-10/10 Last Admin: 11/07/19 10:57 Dose: 4 mg Documented by: Sodium Chloride () 500 mls @ 15 mls/hr IV PRN PRN PRN Reason: Blood Transfusion Sodium Chloride () 250 mls @ 15 mls/hr IV .[id number] PRN PRN Reason: Saline Flush Sodium Chloride () 250 mls @ 15 mls/hr IV .[id number] PRN PRN Reason: Additional IVPB Infusion Furosemide 500 mg/ N/A 50 mls @ 1 mls/hr CONT INF .Q50H ON LICENSE OF [facility] Last Infusion: 11/06/19 13:00 Dose: 10 mg/hr, 1 mls/hr Documented by: Insulin Human Lispro (Humalog Kwikpen (Bkc)) 0 unit SC ACHS ON LICENSE OF [facility]; Protocol Last Admin: 11/07/19 12:50 Dose: 2 units Documented by: Ipratropium Parmele (Atrovent) 0.5 mg INHALATION Q4H.RT ON LICENSE OF [facility] Last Admin: 11/07/19 11:16 Dose: 0.5 mg Documented by: Levothyroxine Sodium (Synthroid) 112 mcg PO DAILY@0600 ON LICENSE OF [facility] Last Admin: 11/07/19 06:54 Dose: 112 mcg Documented by: Lidocaine (Lidoderm Patch) 1 patch TOPICAL DAILY ON LICENSE OF [facility]; Protocol Last Admin: 11/07/19 10:56 Dose: 1 patch Documented by: Lisinopril (Zestril) 2.5 mg PO BID ON LICENSE OF [facility] Last Admin: 11/07/19 11:20 Dose: 2.5 mg Documented by: Lorazepam (Ativan) 0.5 mg PO BID PRN PRN Reason: ANXIETY Last Admin: 11/04/19 00:10 Dose: 0.5 mg Documented by: Melatonin (Melatonin) 3 mg PO QHS PRN PRN PRN Reason: INSOMNIA Metoprolol Tartrate (Lopressor (Beta Jameel)) 100 mg PO BID ON LICENSE OF [facility] Last Admin: 11/07/19 11:15 Dose: 100 mg Documented by: Nitroglycerin (Nitrostat) 0.4 mg SUBLINGUAL Q5M PRN PRN Reason: CARDIAC/CHEST PAIN Nitroglycerin (Nitrobid) 0.5 inch TRANSDERM. Q6 ON LICENSE OF [facility] Last Admin: 11/07/19 13:00 Dose: 0.5 inch Documented by: Ondansetron HCl (Zofran) 4 mg IV Q8H PRN PRN PRN Reason: NAUSEA/VOMITING Last Admin: 11/07/19 08:56 Dose: 4 mg Documented by: Potassium Chloride (K-Dur) [facility] Sodium Chloride () 10 - 40 ml IV UD PRN PRN Reason: SALINE FLUSH Last Admin: 11/07/19 08:56 Dose: 20 ml Documented by: Spironolactone (Aldactone) 25 mg PO BID ON LICENSE OF [facility] Last Admin: 11/07/19 10:58 Dose: 25 mg Documented by: Sucralfate (Carafate) 1 gm PO TIDAC ON LICENSE OF [facility] Last Admin: 11/07/19 12:50 Dose: 1 gm Documented by: STROKE Vital Signs/Narrative: Vital Signs Temp Pulse Resp BP Pulse Ox 11/07/19 13:00 118 H 119/87 H 11/07/19 12:20 114 H 11/07/19 11:16 120 H 20 H 11/07/19 11:15 127 H 113/74 11/07/19 11:00 98 F 127 H 17 113/74 95 Assessment/Plan Hospitalist note: I am seeing this patient in conjunction with John West. I independently seen and examined the patient. Progress note above and laboratory data reviewed and I concur with the above treatment plan. Reported minimal improvement of her shortness of breath, requiring less oxygen. Still having chest pressure. Denied dizziness, lightheadedness, syncope or presyncope. She is very weak and not able to ambulate adequately. She is afebrile, blood pressure is borderline, heart rate 120s, pulse ox is 95% on 4 L. - Physical Exam General: Alert, Oriented x3, Cooperative, mildly short of breath. HEENT: Atraumatic, PERRLA, EOMI. Neck: Supple, No JVD, Negative Carotid Bruits, Trachea Midline, Thyroid Normal. Lungs: Decreased breath sounds bilateral, bilateral basal crackles, no wheezes or rhonchi, short of breath.. Cardiovascular: Irregular rate and rhythm, Normal S1, Normal S2, PMI Normal, tachycardia. Abdomen: Bowel Sounds Present, Soft, Non Tender, Non-Distended, No Hepato- splenomegaly. Extremities: No clubbing, No cyanosis, + edema Skin: No rashes, No breakdown Neurological: Cranial nerves are intact, neuro grossly intact Assessment and plan: #1 acute on chronic diastolic CHF: She is IV Lasix drip, on metoprolol and Aldactone. Reported minimal improvement, requiring less oxygen. 2D echocardiogram revealed ejection fraction of 65%, moderately enlarged left atrium, moderately enlarged right atrium, moderate MR, moderate aortic stenosis, RVSP 48 above. EKG revealed A. fib with RVR. Cardiology on the case, patient may need to go for cardiac catheterization. Plan to continue IV diuresis with IV Lasix drip. #2 A. fib with RVR: IV amiodarone and Cardizem was continued. He is on p.o amiodarone and metoprolol. Still in A. fib, heart rate has been around 110-120, blood pressure improved. Cardiology on the case. Patient was on Coumadin, INR is 1.9. Plan to continue same treatment for now. #3 acute hypoxic respiratory failure: Secondary to acute CHF. She is requiring up to 4 L of oxygen, oxygen requirement has been decreasing. Plan to continue IV diuresis as above. #4 other chronic medical problems: Stable, continue current medications as above. This note was generated with [employer] software. It may contain incorrect words, spelling, and punctuation that were not noted in checking the note before signing. Code Visit Inpatient E&M: 99277 Subs Hosp L2
[2019-11-07 13:30] LABS: Magnesium 1.7 mg/dL (1.6-2.6); Phosphorus 1.8 mg/dL (2.5-4.9)
[2019-11-07] MEDS: Enoxaparin 80 MG/0.8 ML Syringe SC (18:34)
[2019-11-07] MEDS: Furosemide 500 MG in Empty Viaflex 50 mL 1 EACH CONT INF (18:41)
[2019-11-07 18:51] LABS: Bedside Glucose 217 mg/dL (70-110)
[2019-11-07] MEDS: dilTIAZem 60 MG Tablet PO (20:17)
[2019-11-07] MEDS: Diphenoxylate/Atrop 1 Tablet 2 TABLET PO (21:35)
[2019-11-07] MEDS: Atorvastatin Calcium 20 MG Tablet PO (21:35)
[2019-11-07 22:16] LABS: Bedside Glucose 218 mg/dL (70-110)
[2019-11-08] VITALS (28 sets, daily range): BP systolic 84–116; BP diastolic 65–84; PULSE 87–124; RESP 15–22; TEMP 36.2–37; O2SAT 91–100
[2019-11-08] MEDS: dilTIAZem 60 MG Tablet PO ×4 (00:08→18:01)
[2019-11-08] MEDS: Amiodarone 200 MG Tablet PO ×3 (02:12→22:33)
[2019-11-08] MEDS: Levothyroxine 112 MCG Tablet PO (05:20)
[2019-11-08] MEDS: Enoxaparin 80 MG/0.8 ML Syringe SC ×2 (05:20→18:02)
[2019-11-08 05:51] LABS: Bedside Glucose 183 mg/dL (70-110)
[2019-11-08] MEDS: Insulin Lispro 100 UNIT/ML INSULN.PEN SC ×4 (06:38→22:33)
[2019-11-08] MEDS: Sucralfate 1 GM Tablet PO ×3 (06:38→16:57)
[2019-11-08 06:55] LABS: Bedside Glucose 164 mg/dL (70-110)
[2019-11-08 07:08] LABS: Absolute Lymphocyte Count 0.82 X10^3/uL (0.83-4.51); Absolute Neutrophil Count 8.6 X10^3/uL (2.0-7.7); Basophil# 0.05 X10^3/uL; Basophil% 0.5 % (0-1); Eosinophil# 0.06 X10^3/uL; Eosinophils% 0.6 % (0-5); Hematocrit 38.7 % (37-47); Hemoglobin 12.7 g/dL (12.0-15.0); Lymphocyte # 0.82 X10^3/ul (4.0); Lymphocyte % 7.6 % (19-41); Mean Corp Hgb Conc 32.8 g/dL (32-36); Mean Corpuscular Volume 97.5 fL (81-99); Mean Platelet Vol. 9.8 fl (6.2-12.0); Monocyte# 1.21 X10^3/uL; Monocyte% 11.2 % (0-10); NRBC Flagged by Analyzer 0 % (0-5); Neutrophil % 79.6 % (47-70); Platelet Count 290 K/mm3 (150-450); RBC Distribution Width CV 15.1 % (11.6-14.6); RBC Distribution Width SD 52.7 fl (35.1-43.9); Red Blood Count 3.97 M/mm3 (4.2-5.4); White Blood Count 10.8 K/mm3 (4.4-11.0)
[2019-11-08] MEDS: Ipratropium 0.5 MG/2.5 ML SOLUTION INHALATION ×2 (07:13→15:22)
[2019-11-08 07:14] LABS: International Normalized Ratio 1.7; Prothrombin Time (Protime)PT. 20.2 SECONDS (11.7-14.9)
[2019-11-08 07:42] LABS: Anion Gap 7 (5-15); BUN 27 mg/dL (7-18); BUN/Creat Ratio 22.7 RATIO (10-20); Calcium,Total 9.5 mg/dL (8.5-10.1); Chloride 102 mmol/L (98-107); Creatinine, Serum 1.19 mg/dL (0.55-1.02); EST Glomerular Filtration Rate 46 mL/min (>60); Est Glom Filt Rate - Afr Amer 56 mL/min (>60); Estimated Creatinine Clearance 29.11 ml/min; Glucose 184 mg/dL (74-106); Potassium 4.4 mmol/L (3.5-5.1); Sodium Level 136 mmol/L (136-145)
--- NOTE | 2019-11-08 08:52 | EKG12_ITS ---
Test Reason : Blood Pressure : / mmHG Vent. Rate : 100 BPM Atrial Rate : 125 BPM P-R Int : 000 ms QRS Dur : 130 ms QT Int : 370 ms P-R-T Axes : 000 -13 171 degrees QTc Int : 477 ms Atrial fibrillation Left bundle branch block Abnormal ECG When compared with ECG of 05-NOV-2019 03:53, No significant change was found Confirmed by MIREYA BETTENCOURT ([id number]), design editor ROSANNA FLORES ([id number]) on 11/09/2019 8:51:21 AM Referred By: ARIA Confirmed By:MIREYA BETTENCOURT
[2019-11-08] MEDS: Allopurinol 300 MG Tablet PO (09:57)
[2019-11-08] MEDS: Gabapentin 400 MG Capsule PO ×3 (09:57→18:01)
[2019-11-08] MEDS: Spironolactone 25 MG Tablet PO ×2 (09:57→22:33)
[2019-11-08] MEDS: Aspirin E.C. 81 MG Tablet PO (09:57)
[2019-11-08] MEDS: Citalopram 40 MG TABLET PO (09:57)
[2019-11-08] MEDS: Fenofibrate 145 MG Tablet PO (09:57)
[2019-11-08] MEDS: Ferrous Sulfate 325 MG Tablet PO (09:57)
[2019-11-08] MEDS: Famotidine 20 MG Tablet PO ×2 (09:57→22:33)
[2019-11-08] MEDS: DULoxetine Hcl 60 MG Capsule PO (09:57)
[2019-11-08] MEDS: Lidocaine 5% Patch 1 PATCH TOPICAL (09:58)
[2019-11-08] MEDS: Na Biphos/Potassium Phosphate PACKET 1 PACKET PO ×3 (10:08→18:02)
[2019-11-08] MEDS: Diphenoxylate/Atrop 1 Tablet PO (10:08)
--- NOTE | 2019-11-08 10:32 | PN.CARD_ITS ---
Subjectve: The patient appears somewhat lethargic although she awakens to verbal stimuli and appears to respond appropriately. She denies ongoing chest discomfort at this time. She notes her chronic shortness of breath and dyspnea. She states she is tired and fatigued. Objective: Vital Signs Temp Pulse Resp BP Pulse Ox 98.4 F 99 17 95/65 98 11/08/19 10:10 11/08/19 10:10 11/08/19 10:10 11/08/19 10:10 11/08/19 10:10 Oxygen Flow Rate (L/min) 5 Oxygen Delivery Method Nasal Cannula Weight: 177 lb 7.554 oz Body Mass Index (BMI) 32.5 Finger Stick Blood Glucose 150 Intake and Output for Last 24 Hours 11/06/19 11/07/19 11/08/19 23:59 23:59 23:59 Intake Total 1255.74 / 1272.44 1479.69 / 1479.69 200 / 200 Output Total 1825 / 1825 3275 / 3275 400 / 400 Balance -569.26 / -552.56 -1795.31 / -1795.31 -200 / -200 General: Awake, Alert, Oriented x 3, Cooperative, Ill Appearing HEENT: Atraumatic, Normocephalic, PERRL Oral: Moist Mucosa Neck: Supple, Good ROM, No JVD Lungs: Diminished Chas Bases Cardiovascular: Irregular Rhythm, Normal S1, Normal S2 Abdomen: Bowel Sounds Present, Soft Extremities: - - Bilateral lower extremity Selvin wraps Psych/Mental Status: Depressed 11/07/19 06:57: Phosphorus 1.8 L, Magnesium 1.7 11/08/19 06:50: WBC 10.8, RBC 3.97 L, Hgb 12.7, Hct 38.7, MCV 97.5, MCH 32.0, MCHC 32.8, Plt Count 290, MPV 9.8, Immature Gran % (Auto) 0.500, Neut % (Auto) 79.6 H, Lymph % (Auto) 7.6 L, Bradford % (Auto) 11.2 H, Eos % (Auto) 0.6, Baso % (Auto) 0.5, Absolute Neuts (auto) 8.6 H, Nucleated RBC % 0 11/08/19 06:50: PT 20.2 H, INR 1.7 11/08/19 06:50: Sodium 136, Potassium 4.4, Chloride 102, Carbon Dioxide 27.0, Anion Gap 7, BUN 27 H, Creatinine 1.19 H, Est GFR (MDRD) Af Amer 56 L, Est GFR (MDRD) Non-Af 46 L, BUN/Creatinine Ratio 22.7 H, Glucose 184 H, Calcium 9.5 Rhythm: Atrial fibrillation Medical Necessity - Tobacco Use Smoking Status: Never smoker Assessment/Plan 1. Atrial fibrillation The patient presents with atrial fibrillation. The exact duration is unknown. She is being treated with rate control therapy. 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 She is continuing a combination of rate control therapy, an attempt at antiarrhythmic therapy, and anticoagulant therapy. Also depending upon her clinical course she may need further noninvasive or invasive cardiovascular studies as deemed appropriate. 2. Valvular heart disease She does appear to have by examination a cardiac murmur and by her transthoracic echocardiogram evidence of underlying valvular heart disease as noted. This involves both mitral and tricuspid valve regurgitation and aortic valve stenosis. This allowed to be taken into consideration during her ongoing evaluation and care. 3. Congestive heart failure It appears she has developed evidence concerning for CHF. It is unclear whether her atrial fibrillation superimposed upon her underlying valvular heart related issues, etc., is exacerbating her CHF. At the moment she is being treated with multiple medications. 4. Hyperlipidemia She will continue medical management as deemed appropriate. 5. Diabetes mellitus She will continue under the care of internal medicine. 6. Hypo-thyroidism She will continue medical management as deemed appropriate. 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 Her INR is decreasing. Thus would not be very unreasonable to provide bridging anticoagulant therapy. Overall, at the present time, she will continue attempts at medical optimization. Also, lengthy conversation has been held with the patient on more than one occasion. At the present time she states she is electing to continue conservative medical management and does not want to proceed with further invasive evaluation or care. The patient also states she would be receptive to a consultation by palliative/hospice care. The patient's case has been previously discussed and reviewed with the [facility] hospitalist team. This note was generated using a voice recognition system and there may be incorrect words, spelling or punctuation that were not noted when reviewing the office note prior to saving.
[2019-11-08 10:33] LABS: Pathologist Review Reviewed
[2019-11-08 12:00] LABS: Bedside Glucose 166 mg/dL (70-110)
--- NOTE | 2019-11-08 12:29 | CASEMGMT ---
SW received a referral from physician for Palliative Care. SW spoke with patient and she confirmed she is interested in a referral. She said she would like her sister present when she meets with Palliative. She gave SW permission to call her sister. SW called patient's sister and left her a voice mail requesting a return call. Bridgette HERNANDEZ
--- NOTE | 2019-11-08 13:09 | PCM.PN.HOSP ---
<John West - Last Filed: 11/08/19 13:09> Reason for Visit: SOB Subjective: Pt states that she thinks she feels a little bit better today. She is on 5lpm O2 again however. She is still SOB with nonproductive cough and ongoing chest pressure. She has no LH/dizziness/ LE edema is improving. No fevers/chills. She is interested in palliative care but not hospice. She is considering heart cath. Vitals/I&O's: Vital Signs Temp Pulse Resp BP Pulse Ox 98.4 F 87 15 102/66 95 11/08/19 10:10 11/08/19 11:00 11/08/19 11:00 11/08/19 11:00 11/08/19 11:00 Oxygen Flow Rate (L/min) 5 Oxygen Delivery Method Nasal Cannula Weight: 177 lb 7.554 oz Body Mass Index (BMI) 32.5 Finger Stick Blood Glucose 150 Intake and Output for Last 24 Hours 11/06/19 11/07/19 11/08/19 23:59 23:59 23:59 Intake Total 1255.74 / 1272.44 1479.69 / 1479.69 211.7 / 211.7 Output Total 1825 / 1825 3275 / 3275 400 / 400 Balance -569.26 / -552.56 -1795.31 / -1795.31 -188.3 / -188.3 General: Alert, Oriented x3, Cooperative, Lethargic HEENT: Atraumatic, PERRLA, EOMI, Normocephalic Neck: Supple, No JVD, Negative Carotid Bruits Lungs: Diminished, Rales Cardiovascular: No murmurs, Irregular Rate, Tachycardic Abdomen: Bowel Sounds Present, Soft, Non Tender Extremities: Capillary Refill Less than 3 Seconds, Edema - 1-2+ pitting edema BLE Skin: No rashes, No breakdown Musculoskeletal: No Tenderness to Palpation of Joints or Extremities Neurological: Cranial nerves II-XII grossly intact Psych/Mental Status: Normal Affect, Appropriate, Alert and oriented to time, place, person, mood and affect Laboratory Results 11/07/19 06:57: Diff Path Review Reviewed 11/07/19 06:57: Phosphorus 1.8 L, Magnesium 1.7 11/07/19 18:22: POC Glucose 217 H 11/07/19 21:34: POC Glucose 218 H 11/08/19 05:28: POC Glucose 183 H 11/08/19 06:34: POC Glucose 164 H 11/08/19 06:50: WBC 10.8, RBC 3.97 L, Hgb 12.7, Hct 38.7, MCV 97.5, MCH 32.0, MCHC 32.8, RDW Std Deviation 52.7 H, RDW Coeff of Vannesa 15.1 H, Plt Count 290, MPV 9.8, Immature Gran % (Auto) 0.500, Neut % (Auto) 79.6 H, Lymph % (Auto) 7.6 L, [place] % (Auto) 11.2 H, Eos % (Auto) 0.6, Baso % (Auto) 0.5, Absolute Neuts (auto) 8.6 H, Absolute Lymphs (auto) 0.82 L, Nucleated RBC % 0 11/08/19 06:50: PT 20.2 H, INR 1.7 11/08/19 06:50: Sodium 136, Potassium 4.4, Chloride 102, Carbon Dioxide 27.0, Anion Gap 7, BUN 27 H, Creatinine 1.19 H, Estim Creat Clear Calc 29.11, Est GFR (MDRD) Af Amer 56 L, Est GFR (MDRD) Non-Af 46 L, BUN/Creatinine Ratio 22.7 H, Glucose 184 H, Calcium 9.5 11/08/19 11:38: POC Glucose 166 H Current Medications Acetaminophen (Tylenol) 650 mg PO Q6H PRN PRN PRN Reason: Pain Score 1-3/Temp > 100.7 F Hydrocodone Bitart/Acetaminophen ([place] 5mg-325mg) 1 tablet PO Q8H PRN PRN PRN Reason: Mild-Mod Pain (1-5/10) Allopurinol (Zyloprim) 300 mg PO DAILY [facility] Last Admin: 11/08/19 09:57 Dose: 300 mg Documented by: Amiodarone HCl (Cordarone) 200 mg PO TID [facility] Stop: 11/13/19 22:01 Last Admin: 11/08/19 02:12 Dose: 200 mg Documented by: Amiodarone HCl (Cordarone) 200 mg PO BID [facility] Stop: 11/27/19 22:01 Amiodarone HCl (Cordarone) 200 mg PO DAILY [facility] Aspirin (Ecotrin) 81 mg PO DAILY@0800 [facility] Last Admin: 11/08/19 09:57 Dose: 81 mg Documented by: Atorvastatin Calcium (Lipitor) 20 mg PO QHS [facility] Last Admin: 11/07/19 21:35 Dose: 20 mg Documented by: Bumetanide (Bumex) 2 mg IV BID@1000,1800 [facility] Citalopram Hydrobromide (Celexa) 40 mg PO DAILY [facility] Last Admin: 11/08/19 09:57 Dose: 40 mg Documented by: Colesevelam HCl (Welchol) [facility] Last Admin: 11/08/19 09:57 Dose: 625 mg Documented by: Cyclobenzaprine HCl (Flexeril) 5 mg PO TID PRN PRN PRN Reason: SPASMS Dextrose (D50w Syringe) 0 gm IV X1 PRN; Protocol PRN Reason: Hypoglycemia Diltiazem HCl (Cardizem) 60 mg PO Q6 [facility] Last Admin: 11/08/19 05:20 Dose: 60 mg Documented by: Diphenoxylate HCl/Atropine (Lomotil) 1 tablet PO TIDCM [facility] Last Admin: 11/08/19 11:37 Dose: Not Given Documented by: Diphenoxylate HCl/Atropine (Lomotil) 2 tablet PO QHS [facility] Last Admin: 11/07/19 21:35 Dose: 2 tablet Documented by: Duloxetine HCl (Cymbalta) 60 mg PO DAILY [facility] Last Admin: 11/08/19 09:57 Dose: 60 mg Documented by: Enoxaparin Sodium (Lovenox) 80 mg SC Q12@0600,1800 [facility] Last Admin: 11/08/19 05:20 Dose: 80 mg Documented by: Ergocalciferol (Vitamin D) 50,000 unit PO QMONTH [facility] Famotidine (Pepcid) 20 mg PO BID [facility] Last Admin: 11/08/19 09:57 Dose: 20 mg Documented by: Fenofibrate (Tricor) [facility] Last Admin: 11/08/19 09:57 Dose: 145 mg Documented by: Ferrous Sulfate (Ferrous Sulfate) 325 mg PO DAILY@0800 [facility] Last Admin: 11/08/19 09:57 Dose: 325 mg Documented by: Gabapentin (Neurontin) 400 mg PO TIDCM [facility] Last Admin: 11/08/19 09:57 Dose: 400 mg Documented by: Glucagon () 1 mg IM .X1 PRN PRN Reason: Hypoglycemia Hydromorphone HCl (Dilaudid Tablet) 4 mg PO BID PRN PRN PRN Reason: Pain Score 1-10/10 Last Admin: 11/07/19 10:57 Dose: 4 mg Documented by: Sodium Chloride () 500 mls @ 15 mls/hr IV PRN PRN PRN Reason: Blood Transfusion Sodium Chloride () 250 mls @ 15 mls/hr IV .[id number] PRN PRN Reason: Saline Flush Sodium Chloride () 250 mls @ 15 mls/hr IV .[id number] PRN PRN Reason: Additional IVPB Infusion Insulin Human Lispro (Humalog Kwikpen (Bkc)) 0 unit SC ACHS [facility]; Protocol Last Admin: 11/08/19 11:44 Dose: 1 units Documented by: Ipratropium [place] (Atrovent) 0.5 mg INHALATION Q4H.RT [facility] Last Admin: 11/08/19 07:13 Dose: 0.5 mg Documented by: Levothyroxine Sodium (Synthroid) 112 mcg PO DAILY@0600 [facility] Last Admin: 11/08/19 05:20 Dose: 112 mcg Documented by: Lidocaine (Lidoderm Patch) 1 patch TOPICAL DAILY [facility]; Protocol Last Admin: 11/08/19 09:58 Dose: 1 patch Documented by: Lorazepam (Ativan) 0.5 mg PO BID PRN PRN Reason: ANXIETY Last Admin: 11/04/19 00:10 Dose: 0.5 mg Documented by: Melatonin (Melatonin) 3 mg PO QHS PRN PRN PRN Reason: INSOMNIA Metoprolol Tartrate (Lopressor (Beta Jameel)) 50 mg PO BID [facility] Nitroglycerin (Nitrostat) 0.4 mg SUBLINGUAL Q5M PRN PRN Reason: CARDIAC/CHEST PAIN Nitroglycerin (Nitrobid) 0.5 inch TRANSDERM. Q6 [facility] Last Admin: 11/08/19 06:38 Dose: Not Given Documented by: Ondansetron HCl (Zofran) 4 mg IV Q8H PRN PRN PRN Reason: NAUSEA/VOMITING Last Admin: 11/07/19 08:56 Dose: 4 mg Documented by: Potassium Chloride (K-Dur) 20 meq PO BIDCM [facility] Last Admin: 11/08/19 09:57 Dose: 20 meq Documented by: Potassium Phos/Sodium Phos (Neutra-Phos Packet) 1 packet PO 4X/DAY [facility] Stop: 11/08/19 22:01 Last Admin: 11/08/19 10:08 Dose: 1 packet Documented by: Sodium Chloride () 10 - 40 ml IV UD PRN PRN Reason: SALINE FLUSH Last Admin: 11/07/19 08:56 Dose: 20 ml Documented by: Spironolactone (Aldactone) 25 mg PO BID [facility] Last Admin: 11/08/19 09:57 Dose: 25 mg Documented by: Sucralfate (Carafate) 1 gm PO TIDAC [facility] Last Admin: 11/08/19 11:44 Dose: 1 gm Documented by: Warfarin Sodium (Coumadin (Pbkc)) 5 mg PO DAILY@1700 [facility] STROKE Vital Signs/Narrative: Vital Signs Temp Pulse Resp BP BP Pulse Ox 11/08/19 11:00 87 15 102/66 95 11/08/19 10:10 98.4 F 99 17 95/65 98 Medical Necessity - Tobacco Use Smoking Status: Never smoker Assessment/Plan 1. Afib RVR - cardiology following. Continue amio, metoprolol (this was held this AM for low BP). Echo as below. Rate is still poorly controlled. Resume warfarin. Pt again considering if she wants heart cath. 2. Acute hypoxic respiratory failure 2/2 Acute on chronic diastolic CHF - Echo EF 65%, 2+ MVI, 1-2+ TVI, RVSP 48 mmHg, 1-2 + PVI. Continue IV lasix, aldactone. Fluid/Na+ restriction, Selvin wrap BL LE, trend I/O. -good output with lasix drip -replace K, recheck mag/phos -O2 demand back to 5lpm, however pt feels breathing is better and LE edema is improving. -CO2 is trending up, but still in acceptable range. 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 Hx DVT - coumadin 5. HTN - mildly elevated. 6. HLD - statin, fenofibrate 7. Depression/Anxiety - celexa, cymbata, ativan 8. hypothyroidism - tsh normal, continue synthroid. 9. GERD - tagamet, sucralfate DVT ppx: warfarin DC planning: return to SNF when stable. Palliative care consult. This patient was seen by John West PA-C under the supervision of Dr. Patricia <Neel Patricia E - Last Filed: 11/08/19 13:19> Vitals/I&O's: Vital Signs Temp Pulse Resp BP Pulse Ox 98.4 F 87 15 102/66 95 11/08/19 10:10 11/08/19 11:00 11/08/19 11:00 11/08/19 11:00 11/08/19 11:00 Oxygen Flow Rate (L/min) 5 Oxygen Delivery Method Nasal Cannula Weight: 177 lb 7.554 oz Body Mass Index (BMI) 32.5 Finger Stick Blood Glucose 150 Intake and Output for Last 24 Hours 11/06/19 11/07/19 11/08/19 23:59 23:59 23:59 Intake Total 1255.74 / 1272.44 1479.69 / 1479.69 211.7 / 211.7 Output Total 1825 / 1825 3275 / 3275 400 / 400 Balance -569.26 / -552.56 -1795.31 / -1795.31 -188.3 / -188.3 Laboratory Results 11/07/19 06:57: Diff Path Review Reviewed 11/07/19 06:57: Phosphorus 1.8 L, Magnesium 1.7 11/07/19 18:22: POC Glucose 217 H 11/07/19 21:34: POC Glucose 218 H 11/08/19 05:28: POC Glucose 183 H 11/08/19 06:34: POC Glucose 164 H 11/08/19 06:50: WBC 10.8, RBC 3.97 L, Hgb 12.7, Hct 38.7, MCV 97.5, MCH 32.0, MCHC 32.8, RDW Std Deviation 52.7 H, RDW Coeff of Vannesa 15.1 H, Plt Count 290, MPV 9.8, Immature Gran % (Auto) 0.500, Neut % (Auto) 79.6 H, Lymph % (Auto) 7.6 L, [place] % (Auto) 11.2 H, Eos % (Auto) 0.6, Baso % (Auto) 0.5, Absolute Neuts (auto) 8.6 H, Absolute Lymphs (auto) 0.82 L, Nucleated RBC % 0 11/08/19 06:50: PT 20.2 H, INR 1.7 11/08/19 06:50: Sodium 136, Potassium 4.4, Chloride 102, Carbon Dioxide 27.0, Anion Gap 7, BUN 27 H, Creatinine 1.19 H, Estim Creat Clear Calc 29.11, Est GFR (MDRD) Af Amer 56 L, Est GFR (MDRD) Non-Af 46 L, BUN/Creatinine Ratio 22.7 H, Glucose 184 H, Calcium 9.5 11/08/19 11:38: POC Glucose 166 H Current Medications Acetaminophen (Tylenol) 650 mg PO Q6H PRN PRN PRN Reason: Pain Score 1-3/Temp > 100.7 F Hydrocodone Bitart/Acetaminophen ([place] 5mg-325mg) 1 tablet PO Q8H PRN PRN PRN Reason: Mild-Mod Pain (1-5/10) Allopurinol (Zyloprim) 300 mg PO DAILY [facility] Last Admin: 11/08/19 09:57 Dose: 300 mg Documented by: Amiodarone HCl (Cordarone) 200 mg PO TID [facility] Stop: 11/13/19 22:01 Last Admin: 11/08/19 02:12 Dose: 200 mg Documented by: Amiodarone HCl (Cordarone) 200 mg PO BID [facility] Stop: 11/27/19 22:01 Amiodarone HCl (Cordarone) 200 mg PO DAILY [facility] Aspirin (Ecotrin) 81 mg PO DAILY@0800 [facility] Last Admin: 11/08/19 09:57 Dose: 81 mg Documented by: Atorvastatin Calcium (Lipitor) 20 mg PO QHS [facility] Last Admin: 11/07/19 21:35 Dose: 20 mg Documented by: Bumetanide (Bumex) 2 mg IV BID@1000,1800 [facility] Citalopram Hydrobromide (Celexa) 40 mg PO DAILY [facility] Last Admin: 11/08/19 09:57 Dose: 40 mg Documented by: Colesevelam HCl (Welchol) 625 mg GT BIDCM [facility] Last Admin: 11/08/19 09:57 Dose: 625 mg Documented by: Cyclobenzaprine HCl (Flexeril) 5 mg PO TID PRN PRN PRN Reason: SPASMS Dextrose (D50w Syringe) 0 gm IV X1 PRN; Protocol PRN Reason: Hypoglycemia Diltiazem HCl (Cardizem) 60 mg PO Q6 [facility] Last Admin: 11/08/19 05:20 Dose: 60 mg Documented by: Diphenoxylate HCl/Atropine (Lomotil) 1 tablet PO TIDCM [facility] Last Admin: 11/08/19 11:37 Dose: Not Given Documented by: Diphenoxylate HCl/Atropine (Lomotil) 2 tablet PO QHS [facility] Last Admin: 11/07/19 21:35 Dose: 2 tablet Documented by: Duloxetine HCl (Cymbalta) 60 mg PO DAILY [facility] Last Admin: 11/08/19 09:57 Dose: 60 mg Documented by: Enoxaparin Sodium (Lovenox) 80 mg SC Q12@0600,1800 [facility] Last Admin: 11/08/19 05:20 Dose: 80 mg Documented by: Ergocalciferol (Vitamin D) 50,000 unit PO QMONTH [facility] Famotidine (Pepcid) 20 mg PO BID [facility] Last Admin: 11/08/19 09:57 Dose: 20 mg Documented by: Fenofibrate (Tricor) 145 mg PO DAILYCM [facility] Last Admin: 11/08/19 09:57 Dose: 145 mg Documented by: Ferrous Sulfate (Ferrous Sulfate) 325 mg PO DAILY@0800 [facility] Last Admin: 11/08/19 09:57 Dose: 325 mg Documented by: Gabapentin (Neurontin) 400 mg PO TIDCM [facility] Last Admin: 11/08/19 09:57 Dose: 400 mg Documented by: Glucagon () 1 mg IM .X1 PRN PRN Reason: Hypoglycemia Hydromorphone HCl (Dilaudid Tablet) 4 mg PO BID PRN PRN PRN Reason: Pain Score 1-10/10 Last Admin: 11/07/19 10:57 Dose: 4 mg Documented by: Sodium Chloride () 500 mls @ 15 mls/hr IV PRN PRN PRN Reason: Blood Transfusion Sodium Chloride () 250 mls @ 15 mls/hr IV .[id number] PRN PRN Reason: Saline Flush Sodium Chloride () 250 mls @ 15 mls/hr IV .[id number] PRN PRN Reason: Additional IVPB Infusion Insulin Human Lispro (Humalog Kwikpen (Bkc)) 0 unit SC ACHS [facility]; Protocol Last Admin: 11/08/19 11:44 Dose: 1 units Documented by: Ipratropium [place] (Atrovent) 0.5 mg INHALATION Q4H.RT [facility] Last Admin: 11/08/19 11:10 Dose: Not Given Documented by: Levothyroxine Sodium (Synthroid) 112 mcg PO DAILY@0600 [facility] Last Admin: 11/08/19 05:20 Dose: 112 mcg Documented by: Lidocaine (Lidoderm Patch) 1 patch TOPICAL DAILY [facility]; Protocol Last Admin: 11/08/19 09:58 Dose: 1 patch Documented by: Lorazepam (Ativan) 0.5 mg PO BID PRN PRN Reason: ANXIETY Last Admin: 11/04/19 00:10 Dose: 0.5 mg Documented by: Melatonin (Melatonin) 3 mg PO QHS PRN PRN PRN Reason: INSOMNIA Metoprolol Tartrate (Lopressor (Beta Jameel)) 50 mg PO BID [facility] Nitroglycerin (Nitrostat) 0.4 mg SUBLINGUAL Q5M PRN PRN Reason: CARDIAC/CHEST PAIN Nitroglycerin (Nitrobid) 0.5 inch TRANSDERM. Q6 [facility] Last Admin: 11/08/19 06:38 Dose: Not Given Documented by: Ondansetron HCl (Zofran) 4 mg IV Q8H PRN PRN PRN Reason: NAUSEA/VOMITING Last Admin: 11/07/19 08:56 Dose: 4 mg Documented by: Potassium Chloride (K-Dur) 20 meq PO BIDCM [facility] Last Admin: 11/08/19 09:57 Dose: 20 meq Documented by: Potassium Phos/Sodium Phos (Neutra-Phos Packet) 1 packet PO 4X/DAY [facility] Stop: 11/08/19 22:01 Last Admin: 11/08/19 10:08 Dose: 1 packet Documented by: Sodium Chloride () 10 - 40 ml IV UD PRN PRN Reason: SALINE FLUSH Last Admin: 11/07/19 08:56 Dose: 20 ml Documented by: Spironolactone (Aldactone) 25 mg PO BID [facility] Last Admin: 11/08/19 09:57 Dose: 25 mg Documented by: Sucralfate (Carafate) 1 gm PO TIDAC [facility] Last Admin: 11/08/19 11:44 Dose: 1 gm Documented by: Warfarin Sodium (Coumadin ([facility])) 5 mg PO DAILY@1700 [facility] STROKE Vital Signs/Narrative: Vital Signs Temp Pulse Resp BP BP Pulse Ox 11/08/19 11:00 87 15 102/66 95 11/08/19 10:10 98.4 F 99 17 95/65 98 Assessment/Plan Hospitalist note: I am seeing this patient in conjunction with John West. I independently seen and examined the patient. Progress note above and laboratory data reviewed and I concur with the above treatment plan. Today, patient mentioned that she is feeling a bit better, breathing is getting better as well as chest tightness. She mentioned that she is not interested in hospice and palliative care at this time. She has been afebrile, heart rate has been fluctuating from 90s to 1100, blood pressure is borderline, pulse ox is 95% on 5 L. - Physical Exam General: Alert, Oriented x3, Cooperative, mildly short of breath. HEENT: Atraumatic, PERRLA, EOMI. Neck: Supple, No JVD, Negative Carotid Bruits, Trachea Midline, Thyroid Normal. Lungs: Decreased breath sounds bilateral, bilateral basal crackles, no wheezes or rhonchi, short of breath.. Cardiovascular: Irregular rate and rhythm, Normal S1, Normal S2, PMI Normal, tachycardia. Abdomen: Bowel Sounds Present, Soft, Non Tender, Non-Distended, No Hepato-splenomegaly. Extremities: No clubbing, No cyanosis, + edema Skin: No rashes, No breakdown Neurological: Cranial nerves are intact, neuro grossly intact Assessment and plan: #1 acute on chronic diastolic CHF: Remained on IV Lasix drip, on metoprolol and Aldactone. Today, she reported some improvement of her symptoms, pulse ox is maintained on 5 L. 2D echocardiogram revealed ejection fraction of 65%, moderately enlarged left atrium, moderately enlarged right atrium, moderate MR, moderate aortic stenosis, RVSP 48 above. Patient stated that she is not interested in hospice and Perative care. Cardiology on the case. Plan to continue same treatment. #2 A. fib with RVR: She is on p.o amiodarone and metoprolol. Heart rate is better but still fluctuating around 100, blood pressure is borderline. Cardiology on the case. Patient was on Coumadin, INR is 1.7. Plan to continue same treatment for now. #3 acute hypoxic respiratory failure: Secondary to acute CHF. She is requiring up to 5 L of oxygen, oxygen requirement has been decreasing. Plan to continue IV diuresis as above. #4 other chronic medical problems: Stable, continue current medications as above. This note was generated with [employer] dictation software. It may contain incorrect words, spelling, and punctuation that were not noted in checking the note before signing. Code Visit Inpatient E&M: 24404 Subs Hosp L2
[2019-11-08] MEDS: Metoprolol Tartrate 50 MG Tablet PO ×2 (13:22→22:33)
--- NOTE | 2019-11-08 14:03 | CASEMGMT ---
LW/POA forms scanned into summary tab of Kiara llanos is listed as pt's healthcare POA. KARRI Greene
[2019-11-08 17:06] LABS: Bedside Glucose 211 mg/dL (70-110)
[2019-11-08] MEDS: Bumetanide 1 MG/4 ML Vial 2 MG IV (18:02)
[2019-11-08] MEDS: Nitroglycerin Oint 1 INCH PACKET 0.5 INCH TRANSDERM. (18:26)
[2019-11-08] MEDS: HYDROmorphone 2 MG TABLET 4 MG PO (20:40)
[2019-11-08] MEDS: Atorvastatin Calcium 20 MG Tablet PO (22:33)
[2019-11-08] MEDS: Diphenoxylate/Atrop 1 Tablet 2 TABLET PO (22:33)
[2019-11-08] MEDS: Ondansetron 4 MG/2 ML Vial IV (22:40)
[2019-11-08] MEDS: 0.9% Saline Lock 10 ML Syringe IV (22:40)
[2019-11-08 22:41] LABS: Bedside Glucose 219 mg/dL (70-110)
[2019-11-09] VITALS (23 sets, daily range): BP systolic 99–119; BP diastolic 57–92; PULSE 93–149; RESP 16–18; TEMP 36.2–36.7; O2SAT 96–100
[2019-11-09] MEDS: Nitroglycerin Oint 1 INCH PACKET 0.5 INCH TRANSDERM. (00:12)
[2019-11-09] MEDS: dilTIAZem 60 MG Tablet PO ×4 (00:12→16:54)
[2019-11-09] MEDS: Enoxaparin 80 MG/0.8 ML Syringe SC ×2 (05:24→16:52)
[2019-11-09] MEDS: Amiodarone 200 MG Tablet PO ×3 (05:24→22:28)
[2019-11-09] MEDS: Levothyroxine 112 MCG Tablet PO (05:24)
[2019-11-09] MEDS: Sucralfate 1 GM Tablet PO ×3 (06:06→16:29)
[2019-11-09 06:38] LABS: International Normalized Ratio 1.9; Prothrombin Time (Protime)PT. 21.8 SECONDS (11.7-14.9)
[2019-11-09] MEDS: Insulin Lispro 100 UNIT/ML INSULN.PEN SC ×4 (06:42→22:27)
[2019-11-09 06:55] LABS: Bedside Glucose 174 mg/dL (70-110)
[2019-11-09 07:11] LABS: Anion Gap 3 (5-15); BUN 26 mg/dL (7-18); Calcium,Total 9.8 mg/dL (8.5-10.1); Chloride 98 mmol/L (98-107); Creatinine, Serum 1.24 mg/dL (0.55-1.02); EST Glomerular Filtration Rate 44 mL/min (>60); Est Glom Filt Rate - Afr Amer 53 mL/min (>60); Estimated Creatinine Clearance 27.94 ml/min; Glucose 185 mg/dL (74-106); Magnesium 2.2 mg/dL (1.6-2.6); Potassium 5.1 mmol/L (3.5-5.1); Sodium Level 137 mmol/L (136-145)
--- NOTE | 2019-11-09 07:26 | EKG12_ITS ---
Test Reason : CP Blood Pressure : / mmHG Vent. Rate : 088 BPM Atrial Rate : 088 BPM P-R Int : 144 ms QRS Dur : 066 ms QT Int : 352 ms P-R-T Axes : 028 025 048 degrees QTc Int : 425 ms Normal sinus rhythm Low voltage QRS Borderline ECG When compared with ECG of 08-NOV-2019 09:17, MANUAL COMPARISON REQUIRED, DATA IS UNCONFIRMED Confirmed by ROSS HERRING, EMMA ([id number]), marketing editor SUHAS COLON ([id number]) on 11/10/2019 10:58:13 AM Referred By: LYNNE Confirmed By:KIRTI HAWKINS MD
[2019-11-09] MEDS: Ipratropium 0.5 MG/2.5 ML SOLUTION INHALATION ×4 (07:34→19:14)
[2019-11-09] MEDS: Aspirin E.C. 81 MG Tablet PO (08:43)
[2019-11-09] MEDS: Fenofibrate 145 MG Tablet PO (08:43)
[2019-11-09] MEDS: Gabapentin 400 MG Capsule PO ×3 (08:44→16:29)
[2019-11-09] MEDS: Ferrous Sulfate 325 MG Tablet PO (08:44)
[2019-11-09] MEDS: Diphenoxylate/Atrop 1 Tablet PO ×3 (08:54→16:30)
--- NOTE | 2019-11-09 09:40 | PCM.PN.CARD ---
Subjectve: The patient appears to be more awake and alert and communicative today. She states she had chest discomfort yesterday evening. Although she is still short of breath she feels her breathing has improved overall. Objective: Vital Signs Temp Pulse Resp BP Pulse Ox 97.3 F L 102 H 16 104/61 96 11/09/19 08:26 11/09/19 08:26 11/09/19 08:26 11/09/19 08:26 11/09/19 08:26 Oxygen Flow Rate (L/min) 2 Oxygen Delivery Method Nasal Cannula Weight: 170 lb 13.732 oz Body Mass Index (BMI) 32.5 Finger Stick Blood Glucose 150 Intake and Output for Last 24 Hours 11/07/19 11/08/19 11/09/19 23:59 23:59 23:59 Intake Total 1479.69 / 1479.69 1645.7 / 1845.7 300 / 300 Output Total 3275 / 3275 2075 / 2075 1275 / 1275 Balance -1795.31 / -1795.31 -429.3 / -229.3 -975 / -975 General: Awake, Alert, Oriented x 3, Cooperative HEENT: Atraumatic, Normocephalic, PERRL, EOMI, Sclera Non Icteric Oral: Moist Mucosa Neck: Supple, Good ROM, No JVD Lungs: Diminished Chas Bases Cardiovascular: Irregular Rhythm, Normal S1, Normal S2 Murmur Murmur: Grade 2/6, Soft, Mid Systolic, LLSB Abdomen: Bowel Sounds Present, Soft Extremities: - - Bilateral lower extremity Selvin wraps Psych/Mental Status: Appropriate 11/09/19 06:12: PT 21.8 H, INR 1.9 11/09/19 06:12: Sodium 137, Potassium 5.1, Chloride 98, Carbon Dioxide 36.0 H, Anion Gap 3 L, BUN 26 H, Creatinine 1.24 H, Est GFR (MDRD) Af Amer 53 L, Est GFR (MDRD) Non-Af 44 L, BUN/Creatinine Ratio 21.0 H, Glucose 185 H, Calcium 9.8, Phosphorus 3.0, Magnesium 2.2 Rhythm: Atrial fibrillation Medical Necessity - Tobacco Use Smoking Status: Never smoker Assessment/Plan 1. Atrial fibrillation The patient presents with atrial fibrillation. The exact duration is unknown. She is being treated with rate control therapy. 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 She is continuing a combination of rate control therapy, an attempt at antiarrhythmic therapy, and anticoagulant therapy. Also depending upon her clinical course she may need further noninvasive or invasive cardiovascular studies as deemed appropriate. 2. Valvular heart disease She does appear to have by examination a cardiac murmur and by her transthoracic echocardiogram evidence of underlying valvular heart disease as noted. This involves both mitral and tricuspid valve regurgitation and aortic valve stenosis. This allowed to be taken into consideration during her ongoing evaluation and care. 3. Congestive heart failure It appears she has developed evidence concerning for CHF. It is unclear whether her atrial fibrillation superimposed upon her underlying valvular heart related issues, etc., is exacerbating her CHF. At the moment she is being treated with multiple medications. 4. Hyperlipidemia She will continue medical management as deemed appropriate. 5. Diabetes mellitus She will continue under the care of internal medicine. 6. Hypo-thyroidism She will continue medical management as deemed appropriate. 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 Her INR is decreasing. Thus would not be very unreasonable to provide bridging anticoagulant therapy. Overall, at the present time, she will continue attempts at medical optimization. Today the patient states that she wants to proceed with further cardiac evaluation. She states based upon her clinical course and her recurrent symptoms of chest discomfort that she wants to proceed with further definitive evaluation with diagnostic cardiac catheterization. The procedure and risks have been discussed with her. She was agreeable to this approach. Thus, tentative plans will be made for a diagnostic cardiac catheterization to be performed on 11-10-2019 if the patient remains clinically/hemodynamically stable and her laboratory data/results, etc., are within acceptable limits for such a procedure. This note was generated using a voice recognition system and there may be incorrect words, spelling or punctuation that were not noted when reviewing the office note prior to saving.
[2019-11-09] MEDS: Lidocaine 5% Patch 1 PATCH TOPICAL (10:12)
[2019-11-09] MEDS: Metoprolol Tartrate 50 MG Tablet PO ×2 (10:12→22:30)
[2019-11-09] MEDS: Bumetanide 1 MG/4 ML Vial 2 MG IV ×2 (10:12→16:55)
[2019-11-09] MEDS: Famotidine 20 MG Tablet PO ×2 (10:13→22:29)
[2019-11-09] MEDS: DULoxetine Hcl 60 MG Capsule PO (10:13)
[2019-11-09] MEDS: Citalopram 40 MG TABLET PO (10:14)
[2019-11-09] MEDS: Spironolactone 25 MG Tablet PO ×2 (10:14→22:42)
[2019-11-09] MEDS: Allopurinol 300 MG Tablet PO (10:15)
[2019-11-09] MEDS: Clopidogrel Bisulfate 300 MG Tablet PO (11:07)
[2019-11-09] MEDS: Phytonadione (Vit K1) 5 MG TABLET PO ×2 (11:07→19:18)
[2019-11-09 11:20] LABS: Bedside Glucose 198 mg/dL (70-110)
--- NOTE | 2019-11-09 12:29 | CASEMGMT ---
Updates faxed to [facility]. Bridgette BARROS [employer]
[2019-11-09 16:44] LABS: International Normalized Ratio 1.9; Prothrombin Time (Protime)PT. 21.8 SECONDS (11.7-14.9)
[2019-11-09] MEDS: 0.9% Saline Lock 10 ML Syringe IV ×2 (16:55→22:49)
[2019-11-09 19:21] LABS: Bedside Glucose 221 mg/dL (70-110)
--- NOTE | 2019-11-09 19:35 | PN_ITS ---
Subjective: Patient was seen and examined today, patient appears somewhat somnolent but answers appropriately to simple questions. She remains in atrial fib at this time. I talked briefly with cardiology about her medical plan-cardiology states that if the patient is stable and consents, she will undergo cardiac catheterization tomorrow. - Physical Exam Vitals/I&O's: Vital Signs Temp Pulse Resp BP Pulse Ox 97.8 F 124 H 15 107/84 H 96 11/09/19 16:44 11/09/19 19:15 11/09/19 19:15 11/09/19 16:44 11/09/19 16:44 Oxygen Flow Rate (L/min) 2 Oxygen Delivery Method Nasal Cannula Weight: 77.5 kg Body Mass Index (BMI) 32.5 Finger Stick Blood Glucose 150 Intake and Output for Last 24 Hours 11/07/19 11/08/19 11/09/19 23:59 23:59 23:59 Intake Total 1479.69 / 1479.69 1645.7 / 1845.7 1260 / 1260 Output Total 3275 / 3275 2075 / 2075 2225 / 2225 Balance -1795.31 / -1795.31 -429.3 / -229.3 -965 / -965 General: Oriented x3, Cooperative, No apparent distress, Well developed, Lethargic HEENT: Atraumatic, PERRLA, EOMI, Normocephalic Oral: Moist Mucosa Neck: Supple, Trachea Midline, Thyroid Normal Size and Texture Lungs: Clear to auscultation, Normal air movement, No rhonchi, No wheeze, No rales Cardiovascular: No murmurs, PMI Normal, Irregular Rate, No rub noted Abdomen: Bowel Sounds Present, Soft, Non Tender, Non-Distended Extremities: No clubbing, No cyanosis, No edema, Capillary Refill Less than 3 Seconds Skin: No rashes, No breakdown Musculoskeletal: No Tenderness to Palpation of Joints or Extremities Neurological: Cranial nerves II-XII grossly intact, Neuro grossly intact, Sensory exam intact to light touch and pain Psych/Mental Status: Flat Affect, - - Patient responds appropriately to verbal cues, she appears lethargic Laboratory Results 11/08/19 22:22: POC Glucose 219 H 11/09/19 06:12: PT 21.8 H, INR 1.9 11/09/19 06:12: Sodium 137, Potassium 5.1, Chloride 98, Carbon Dioxide 36.0 H, Anion Gap 3 L, BUN 26 H, Creatinine 1.24 H, Estim Creat Clear Calc 27.94, Est GFR (MDRD) Af Amer 53 L, Est GFR (MDRD) Non-Af 44 L, BUN/Creatinine Ratio 21.0 H , Glucose 185 H, Calcium 9.8, Phosphorus 3.0, Magnesium 2.2 11/09/19 06:41: POC Glucose 174 H 11/09/19 11:05: POC Glucose 198 H 11/09/19 16:07: PT 21.8 H, INR 1.9 11/09/19 16:28: POC Glucose 221 H Current Medications Acetaminophen (Tylenol) 650 mg PO Q6H PRN PRN PRN Reason: Pain Score 1-3/Temp > 100.7 F Hydrocodone Bitart/Acetaminophen ([place] 5mg-325mg) 1 tablet PO Q8H PRN PRN PRN Reason: Mild-Mod Pain (1-5/10) Allopurinol (Zyloprim) 300 mg PO DAILY [facility] Last Admin: 11/09/19 10:15 Dose: 300 mg Documented by: Amiodarone HCl (Cordarone) 200 mg PO TID [facility] Stop: 11/13/19 22:01 Last Admin: 11/09/19 13:38 Dose: 200 mg Documented by: Amiodarone HCl (Cordarone) 200 mg PO BID [facility] Stop: 11/27/19 22:01 Amiodarone HCl (Cordarone) 200 mg PO DAILY [facility] Aspirin (Ecotrin) 81 mg PO DAILY@0800 [facility] Last Admin: 11/09/19 08:43 Dose: 81 mg Documented by: Atorvastatin Calcium (Lipitor) 20 mg PO QHS [facility] Last Admin: 11/08/19 22:33 Dose: 20 mg Documented by: Bumetanide (Bumex) 2 mg IV BID@1000,1800 [facility] Last Admin: 11/09/19 16:55 Dose: 2 mg Documented by: Citalopram Hydrobromide (Celexa) 40 mg PO DAILY [facility] Last Admin: 11/09/19 10:14 Dose: 40 mg Documented by: Clopidogrel Bisulfate (Plavix) 75 mg PO DAILY [facility] Colesevelam [facility]Welchol[facility] Last Admin: 11/09/19 16:32 Dose: 625 mg Documented by: Cyclobenzaprine HCl (Flexeril) 5 mg PO TID PRN PRN PRN Reason: SPASMS Dextrose (D50w Syringe) 0 gm IV X1 PRN; Protocol PRN Reason: Hypoglycemia Diltiazem HCl (Cardizem) 60 mg PO Q6 [facility] Last Admin: 11/09/19 16:54 Dose: 60 mg Documented by: Diphenoxylate HCl/Atropine (Lomotil) 1 tablet PO TIDCM [facility] Last Admin: 11/09/19 16:30 Dose: 1 tablet Documented by: Diphenoxylate HCl/Atropine (Lomotil) 2 tablet PO QHS [facility] Last Admin: 11/08/19 22:33 Dose: 2 tablet Documented by: Duloxetine HCl (Cymbalta) 60 mg PO DAILY [facility] Last Admin: 11/09/19 10:13 Dose: 60 mg Documented by: Enoxaparin Sodium (Lovenox) 80 mg SC Q12@0600,1800 [facility] Last Admin: 11/09/19 16:52 Dose: 80 mg Documented by: Ergocalciferol (Vitamin D) 50,000 unit PO QMONTH [facility] Famotidine (Pepcid) 20 mg PO BID [facility] Last Admin: 11/09/19 10:13 Dose: 20 mg Documented by: Fenofibr[facility] (Tricor) [facility] Last Admin: 11/09/19 08:43 Dose: 145 mg Documented by: Ferrous Sulfate (Ferrous Sulfate) 325 mg PO DAILY@0800 [facility] Last Admin: 11/09/19 08:44 Dose: 325 mg Documented by: Gabapentin (Neurontin) 400 mg PO TIDCM [facility] Last Admin: 11/09/19 16:29 Dose: 400 mg Documented by: Glucagon () 1 mg IM .X1 PRN PRN Reason: Hypoglycemia Hydromorphone HCl (Dilaudid Tablet) 4 mg PO BID PRN PRN PRN Reason: Pain Score 1-10/10 Last Admin: 11/08/19 20:40 Dose: 4 mg Documented by: Sodium Chloride () 500 mls @ 15 mls/hr IV PRN PRN PRN Reason: Blood Transfusion Sodium Chloride () 250 mls @ 15 mls/hr IV .[id number] PRN PRN Reason: Saline Flush Sodium Chloride () 250 mls @ 15 mls/hr IV .[id number] PRN PRN Reason: Additional IVPB Infusion Sodium Chloride () 1,000 mls @ 0 mls/hr IV .Q0M [facility] Insulin Human Lispro (Humalog Kwikpen (Bkc)) 0 unit SC ACHS [facility]; Protocol Last Admin: 11/09/19 16:29 Dose: 2 units Documented by: Ipratropium [place] (Atrovent) 0.5 mg INHALATION Q4H.RT [facility] Last Admin: 11/09/19 19:14 Dose: 0.5 mg Documented by: Levothyroxine Sodium (Synthroid) 112 mcg PO DAILY@0600 [facility] Last Admin: 11/09/19 05:24 Dose: 112 mcg Documented by: Lidocaine (Lidoderm Patch) 1 patch TOPICAL DAILY [facility]; Protocol Last Admin: 11/09/19 10:12 Dose: 1 patch Documented by: Lorazepam (Ativan) 0.5 mg PO BID PRN PRN Reason: ANXIETY Last Admin: 11/04/19 00:10 Dose: 0.5 mg Documented by: Melatonin (Melatonin) 3 mg PO QHS PRN PRN PRN Reason: INSOMNIA Metoprolol Tartrate (Lopressor (Beta Jameel)) 50 mg PO BID [facility] Last Admin: 11/09/19 10:12 Dose: 50 mg Documented by: Nitroglycerin (Nitrostat) 0.4 mg SUBLINGUAL Q5M PRN PRN Reason: CARDIAC/CHEST PAIN Ondansetron HCl (Zofran) 4 mg IV Q8H PRN PRN PRN Reason: NAUSEA/VOMITING Last Admin: 11/08/19 22:40 Dose: 4 mg Documented by: Potassium Chloride (K-Dur) 20 meq PO BIDCM [facility] Last Admin: 11/09/19 16:30 Dose: 20 meq Documented by: Sodium Chloride () 10 - 40 ml IV UD PRN PRN Reason: SALINE FLUSH Last Admin: 11/09/19 16:55 Dose: 10 ml Documented by: Spironolactone (Aldactone) 25 mg PO BID [facility] Last Admin: 11/09/19 10:14 Dose: 25 mg Documented by: Sucralfate (Carafate) 1 gm PO TIDAC [facility] Last Admin: 11/09/19 16:29 Dose: 1 gm Documented by: Medical Necessity - Tobacco Use Smoking Status: Never smoker Assessment/Plan #1 chronic atrial fib with RVR-cardiology is continue to adjust medications, cardiology is planning on performing a cardiac catheterization on the patient tomorrow if she remains stable #2 acute hypoxic respiratory failure secondary to diastolic congestive heart failure-continue to wean oxygen if possible #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 #4 acute diastolic congestive heart failure-continue treatment per cardiology #5 type 2 diabetes #6 aortic stenosis-moderate #7 pulmonary hypertension #8 moderate mitral regurg #9 chronic pain syndrome secondary to osteoarthritis and spinal stenosis Code Visit Inpatient E&M: 50929 Subs Hosp L2
[2019-11-09] MEDS: Atorvastatin Calcium 20 MG Tablet PO (22:29)
--- NOTE | 2019-11-09 22:30 | NURSING ---
Discussed need for consent form to be signed. Pt denies speaking with the MD regarding risks and benefits, does not feel that she has the appropriate education to sign consent form at this time. Offered pt to watch heart cath education video, pt declined.
--- NOTE | 2019-11-09 22:40 | NURSING ---
Verbal report received from Sveta Horn RN. This RN will resume care of patient at this time.
[2019-11-09] MEDS: Diphenoxylate/Atrop 1 Tablet 2 TABLET PO (22:48)
[2019-11-09] MEDS: Ondansetron 4 MG/2 ML Vial IV (22:49)
[2019-11-09 23:00] LABS: Bedside Glucose 195 mg/dL (70-110)
[2019-11-10] VITALS (18 sets, daily range): BP systolic 103–129; BP diastolic 64–95; PULSE 103–140; RESP 14–18; TEMP 36.6–36.9; O2SAT 86–98
[2019-11-10] MEDS: dilTIAZem 60 MG Tablet PO ×3 (00:06→11:25)
[2019-11-10] MEDS: Ipratropium 0.5 MG/2.5 ML SOLUTION INHALATION ×3 (03:00→19:50)
--- NOTE | 2019-11-10 03:16 | EKG12_ITS ---
Test Reason : CP Blood Pressure : / mmHG Vent. Rate : 117 BPM Atrial Rate : 136 BPM P-R Int : 000 ms QRS Dur : 126 ms QT Int : 304 ms P-R-T Axes : 000 033 215 degrees QTc Int : 424 ms Atrial fibrillation Left bundle branch block Abnormal ECG Confirmed by FERCHO HERRING, MUNIR ([id number]), online content editor SUHAS COLON ([id number] on 11/16/2019 1:33:32 PM Referred By: RACHEL Confirmed By:MUNIR BRANTLEY MD
[2019-11-10 05:26] LABS: Absolute Lymphocyte Count 0.64 X10^3/uL (0.83-4.51); Absolute Neutrophil Count 7.7 X10^3/uL (2.0-7.7); Basophil# 0.03 X10^3/uL; Basophil% 0.3 % (0-1); Hematocrit 42.3 % (37-47); Hemoglobin 13.6 g/dL (12.0-15.0); Lymphocyte # 0.64 X10^3/ul (4.0); Mean Corp Hgb Conc 32.2 g/dL (32-36); Mean Corpuscular Hgb 31.3 pg (27.0-32.0); Mean Corpuscular Volume 97.5 fL (81-99); Mean Platelet Vol. 9.3 fl (6.2-12.0); Monocyte# 0.79 X10^3/uL; Monocyte% 8.6 % (0-10); NRBC Flagged by Analyzer 0 % (0-5); Neutrophil # 7.67 X10^3/uL (2.7-7.7); Neutrophil % 83.7 % (47-70); Platelet Count 357 K/mm3 (150-450); RBC Distribution Width CV 14.8 % (11.6-14.6); RBC Distribution Width SD 52.4 fl (35.1-43.9); Red Blood Count 4.34 M/mm3 (4.2-5.4); White Blood Count 9.2 K/mm3 (4.4-11.0)
[2019-11-10] MEDS: Levothyroxine 112 MCG Tablet PO (05:28)
[2019-11-10] MEDS: Aspirin E.C. 81 MG Tablet PO (05:28)
[2019-11-10] MEDS: Amiodarone 200 MG Tablet PO ×3 (05:28→22:45)
[2019-11-10] MEDS: Metoprolol Tartrate 50 MG Tablet PO ×2 (05:29→22:46)
[2019-11-10] MEDS: Clopidogrel Bisulfate 75 MG Tablet PO (05:29)
[2019-11-10 05:36] LABS: Anion Gap 6 (5-15); BUN 28 mg/dL (7-18); BUN/Creat Ratio 22.2 RATIO (10-20); Calcium,Total 9.6 mg/dL (8.5-10.1); Chloride 94 mmol/L (98-107); Creatinine, Serum 1.26 mg/dL (0.55-1.02); EST Glomerular Filtration Rate 43 mL/min (>60); Est Glom Filt Rate - Afr Amer 52 mL/min (>60); Estimated Creatinine Clearance 27.49 ml/min; Glucose 186 mg/dL (74-106); Potassium 4.9 mmol/L (3.5-5.1); Sodium Level 134 mmol/L (136-145)
[2019-11-10 05:46] LABS: Prothrombin Time (Protime)PT. 22.7 SECONDS (11.7-14.9)
[2019-11-10 06:07] LABS: Partial Thromboplast Time 45.1 Seconds (24.1-36.2)
--- NOTE | 2019-11-10 06:10 | RAD_ITS ---
STUDY: X-RAY CHEST REASON FOR EXAM: Female, 84 years old. Shortness of breath TECHNIQUE: Single AP portable view of the chest. COMPARISON: Comparison is made with prior examination dated November 07, 2019. FINDINGS: EKG electrodes are seen. Persistent right upper lobe and right lower lobe infiltrates as well as increased markings at the left lung base. There has been a mild degree of improvement as compared to prior study. Blunting of both costophrenic angles. Normal size heart. Normal mediastinum and natasha. Normal visualized pulmonary arteries. There is atherosclerotic calcification of the aortic arch with tortuosity. There are diffuse degenerative changes of the visualized thoracic spine. Prior right shoulder replacement. There is no demonstrated abnormality of the visualized soft tissue structures of the upper abdomen. RAD/Chest 1 View (Portable) IMPRESSION: Persistent infiltrates in both lungs as described although there has been mild improvement. Persistent blunting of both costophrenic angles. Electronically Signed: Daniel Stokes, at 10:24 EST , Service support ,
--- NOTE | 2019-11-10 08:48 | NURSING ---
This RN called the patient''s sister, Kiara to inform her that the pt will not be undergoing a heart cath today due to high INR.
[2019-11-10] MEDS: Insulin Lispro 100 UNIT/ML INSULN.PEN SC ×4 (09:06→22:48)
[2019-11-10] MEDS: Fenofibrate 145 MG Tablet PO (09:10)
[2019-11-10] MEDS: Ferrous Sulfate 325 MG Tablet PO (09:10)
[2019-11-10] MEDS: Gabapentin 400 MG Capsule PO ×3 (09:11→16:12)
[2019-11-10] MEDS: Spironolactone 25 MG Tablet PO ×2 (09:11→22:47)
[2019-11-10] MEDS: Diphenoxylate/Atrop 1 Tablet PO ×3 (09:11→16:12)
[2019-11-10] MEDS: DULoxetine Hcl 60 MG Capsule PO (09:11)
[2019-11-10] MEDS: Famotidine 20 MG Tablet PO ×2 (09:12→22:45)
[2019-11-10] MEDS: Citalopram 40 MG TABLET PO (09:12)
[2019-11-10] MEDS: Allopurinol 300 MG Tablet PO (09:12)
[2019-11-10] MEDS: Bumetanide 1 MG/4 ML Vial 2 MG IV ×2 (09:12→17:38)
--- NOTE | 2019-11-10 09:23 | CT_ITS ---
STUDY: CT CHEST WITHOUT CONTRAST REASON FOR EXAM: Female, 84 years old. PT STATED COUGHING BLOOD, SHORT OF BREATH RADIATION DOSAGE (If Supplied By Facility): CTDIvol = ( 15.32 ) mGy, DLP = ( 409.03 ) mGycm TECHNIQUE: Transaxial imaging was performed without the administration of intravenous contrast material. Multiplanar coronal and sagittal images were reformatted. Individualized dose optimization techniques were used for this CT. COMPARISON: Comparison is made with prior chest radiograph dated 2019 at 6:00 AM. FINDINGS: Small bilateral pleural effusions right greater than left. Increased linear markings with areas of confluence in the right upper lobe with areas of bronchiectasis suggestive of chronic scarring. There is superimposed infiltrate in the right upper lobe. Minimal increased markings are seen in the anterior peripheral aspect of the left upper lobe. Focal bronchiectasis in the medial aspect of the right middle lobe. Findings suggestive of a consolidation/infiltrate in both lower lobes with areas of bronchiectasis worse on the right side. There is no demonstrated pleural abnormality. Sternal cerclage wires and vascular clips are present from a prior sternotomy and coronary artery bypass graft procedure (CABG). There are multiple small lymph nodes within the mediastinum, which are normal in size and morphology most compatible with reactive lymph hyperplasia. Normal hilar regions. Normal unenhanced pulmonary arteries. There is atherosclerotic calcification of the aortic arch with tortuosity and elongation of the aortic arch and descending thoracic aorta. There are multi-level degenerative changes of the thoracic spine. Small hiatal hernia. CT/Chest without Contrast IMPRESSION: Findings suggestive of a bilateral pleural effusions right greater than left with areas of scarring in both lungs with superimposed infiltration in the right upper lobe and right lower Electronically Signed: Daniel Stokes, at 12:15 EST , Service support ,
--- NOTE | 2019-11-10 09:32 | PCM.PN.CARD ---
Subjectve: The patient appears to be awake and alert at this time. She complained of nausea and emesis yesterday evening. She states after that she felt better. She believes her breathing has gradually improved. She does state that she lives in an extended care facility and is not very active and has people visit her as opposed to her leaving the facility to visit other people or be out in about in the community. Objective: Vital Signs Temp Pulse Resp BP Pulse Ox 97.9 F 115 H 14 129/88 H 96 11/10/19 08:49 11/10/19 08:49 11/10/19 08:49 11/10/19 08:49 11/10/19 08:49 Oxygen Flow Rate (L/min) 2 Oxygen Delivery Method Nasal Cannula Weight: 172 lb 2.896 oz Body Mass Index (BMI) 32.5 Finger Stick Blood Glucose 150 Intake and Output for Last 24 Hours 11/08/19 11/09/19 11/10/19 23:59 23:59 23:59 Intake Total 1645.7 / 1845.7 1290 / 1290 75 / 75 Output Total 2075 / 2075 2885 / 2885 300 / 300 Balance -429.3 / -229.3 -1595 / -1595 -225 / -225 General: Awake, Alert, Oriented x 3, Cooperative HEENT: Atraumatic, Normocephalic, PERRL Oral: Moist Mucosa Neck: Supple, Good ROM, No JVD Lungs: Diminished Right Base Cardiovascular: Irregular Rhythm, Normal S1, Normal S2 Murmur Murmur: Grade 2/6, Soft, Mid Systolic, LLSB Abdomen: Bowel Sounds Present, Soft, Non Tender Extremities: - - Bilateral Selvin wraps (lower extremities) Psych/Mental Status: Depressed 11/09/19 16:07: PT 21.8 H, INR 1.9 11/10/19 05:10: WBC 9.2, RBC 4.34, Hgb 13.6, Hct 42.3, MCV 97.5, MCH 31.3, MCHC 32.2, Plt Count 357, MPV 9.3, Immature Gran % (Auto) 0.400, Neut % (Auto) 83.7 H, Lymph % (Auto) 7.0 L, [place] % (Auto) 8.6, Eos % (Auto) 0.0, Baso % (Auto) 0.3, Absolute Neuts (auto) 7.7, Nucleated RBC % 0 11/10/19 05:10: PT 22.7 H, INR 2.0 11/10/19 05:10: Sodium 134 L, Potassium 4.9, Chloride 94 L, Carbon Dioxide 34.0 H, Anion Gap 6, BUN 28 H, Creatinine 1.26 H, Est GFR (MDRD) Af Amer 52 L, Est GFR (MDRD) Non-Af 43 L, BUN/Creatinine Ratio 22.2 H, Glucose 186 H, Calcium 9.6 11/10/19 05:10: APTT 45.1 H Rhythm: Atrial fibrillation Medical Necessity - Tobacco Use Smoking Status: Never smoker Assessment/Plan 1. Atrial fibrillation The patient presents with atrial fibrillation. The exact duration is unknown. She is being treated with rate control therapy. 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 She is continuing a combination of rate control therapy, an attempt at antiarrhythmic therapy, and anticoagulant therapy. 2. Valvular heart disease She does appear to have by examination a cardiac murmur and by her transthoracic echocardiogram evidence of underlying valvular heart disease as noted. This involves both mitral and tricuspid valve regurgitation and aortic valve stenosis. This allowed to be taken into consideration during her ongoing evaluation and care. 3. Congestive heart failure It appears she has developed evidence concerning for CHF. It is unclear whether her atrial fibrillation superimposed upon her underlying valvular heart related issues, etc., is exacerbating her CHF. At the moment she is being treated with multiple medications. 4. Hyperlipidemia She will continue medical management as deemed appropriate. 5. Diabetes mellitus She will continue under the care of internal medicine. 6. Hypo-thyroidism She will continue medical management as deemed appropriate. 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 Her anticoagulation was placed on hold for the possibility of a diagnostic cardiac catheterization. However, when the patient elected not to proceed in that manner she did receive oral warfarin/Coumadin therapy. After the patient changed her mind and stated that she would proceed with diagnostic cardiac catheterization her oral warfarin/Coumadin therapy was placed on hold and she received vitamin K. However her INR remains elevated. Overall, at the present time, based upon a lengthy conversation with the patient this morning she now states that as a cardiac catheterization has risks associated with it, which have been discussed with her on multiple occasions, she does not want to proceed in that manner and would opt for continued medical management for her multiple medical conditions and depending upon her response to medications, anticoagulation status, etc. may be receptive to a future attempt at synchronized biphasic DC cardioversion to regain sinus rhythm. The patient's case has been discussed at length with Dr. Valle of the [facility] hospitalist staff. He is going to review the case with the patient as well, however, at the present time he appears in agreement with continued conservative medical management of this patient. Also, as she continues with concerns of underlying pulmonary disease and continued O2 requirements despite medical therapy/diuresis he is going to place a consult to pulmonology to assist in her evaluation and care. Thus, at the present time, the patient will continue conservative medical management. Her medications will be adjusted as deemed appropriate including her anticoagulation status to maintain appropriate anticoagulation. There are no immediate plans, based upon the discussion above, to proceed with diagnostic cardiac catheterization at this time. Thus, it may not be unreasonable, as previously discussed with the patient, as that being her option, to also consider a palliative care consultation. This note was generated using a voice recognition system and there may be incorrect words, spelling or punctuation that were not noted when reviewing the office note prior to saving.
--- NOTE | 2019-11-10 09:45 | PCM.CONS.PUL ---
Reason for Consult Date of Consultation: 11/10/19 Reason for Consultation: Abnormal chest x-ray History of Present Illness: The patient is an 84-year-old female, with a history as outlined below, who presented to the hospital on November 03 for the evaluation of atrial fibrillation. On presentation to the hospital, the patient was noted to be afebrile and hemodynamically stable. She was, nevertheless tachycardic and tachypneic. Initial laboratory evaluation revealed a mildly elevated white blood cell count to 13,000. INR was noted to be 3.3. Chemistry profile was unrevealing. Surface echocardiogram was obtained and revealed an ejection fraction of 65%. There was evidence of biatrial enlargement, moderate mitral valve insufficiency, moderate tricuspid valve insufficiency with a right ventricular systolic pressure estimated to be 48 mmHg. A moderate degree of aortic stenosis was also noted. Chest x-ray appeared what appeared to be chronic interstitial changes along with blunting of the costophrenic angles bilaterally. BNP was elevated to 494. The patient's hospital course has included rate/rhythm control strategy, along with diuresis under the discretion of cardiology. The patient is currently documented to be overall net -6.7 L for the hospital admission. Her supplemental oxygen requirement has improved in the setting of the aforementioned interventions. Her chest x-ray from this morning actually shows improvement. This morning, the patient is currently sitting in her bedside recliner. She remains in atrial fibrillation with heart rates in the 120s and 30s. I discontinued the patient's supplemental oxygen while at the bedside and her oxygen saturations remained in the mid and upper 90s. She reports a childhood history of asthma, but she does not utilize any inhalers at her baseline. Past Medical History Past Medical History (Chronic Problems): Chronic Problems (Last Updated 11/03/19 @ 19:28 by Yuri Martin DO) Familial combined hyperlipidemia (Chronic) Hypothyroidism (Chronic) Recurrent dislocation of hip (Chronic) Porphyria (Chronic) Osteoporosis (Chronic) H/O iron deficiency anemia (Chronic) Gout (Chronic) Factor V deficiency (Chronic) Chronic anticoagulation (Chronic) Type 2 diabetes mellitus (Chronic) History of deep venous thrombosis or pulmonary embolus (Chronic) Adrenal hyperplasia (Chronic) Chronic diarrhea (Chronic) Spinal stenosis (Chronic) Overactive bladder (Chronic) Vitamin D deficiency (Chronic) Depression with anxiety (Chronic) CAD (coronary artery disease) (Chronic) Medical History: Medical History (Last Updated 11/03/19 @ 19:28 by Yuri Martin DO) CHF (congestive heart failure) I50.9 Cervical radiculopathy M54.12 Colon cancer C18.9 s/p resection DM2 (diabetes mellitus, type 2) E11.9 Degenerative disc disease Factor V deficiency D68.2 GERD (gastroesophageal reflux disease) K21.9 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 Hyperlipidemia E78.5 Hypothyroid E03.9 Osteoporosis M81.0 Peripheral neuropathy G62.9 Porphyria E80.20 VTE (venous thromboembolism) I82.90 Vitamin D deficiency E55.9 CKD (chronic kidney disease) stage 2, GFR 60-89 ml/min N18.2 HTN (hypertension) I10 Allergies Sulfa (Sulfonamide Antibiotics) Allergy (Verified 12/09/16 10:54) Rash Home Medications: Ambulatory Orders Medication Instructions Recorded Allopurinol [Zyloprim] 300 mg PO DAILY 09/30/16 Atorvastatin Calcium [Lipitor] 20 mg PO QHS 09/30/16 Bumetanide [Bumex] 0.5 mg PO BID 09/30/16 Citalopram [Celexa] 40 mg PO DAILY 09/30/16 Colesevelam Hydrochloride [Welchol] 625 mg PO BIDCM 09/30/16 Diphenoxylate HCl/Atropine 1 tab PO TID 09/30/16 [Lomotil 2.5-0.025 mg Tablet] Duloxetine HCl 60 mg PO DAILY 09/30/16 Ferrous Sulfate 65 mg PO DAILY@0800 09/30/16 Gabapentin [Neurontin] 400 mg PO TIDCM 09/30/16 Lidocaine 5% 5 % TOPICAL DAILY 09/30/16 Metoprolol Tartrate [Lopressor 25 mg PO BID 09/30/16 (beta jameel)] Multivit-Min/Iron/Folic Acid/K 1 each PO DAILY 09/30/16 [Multi For Her Softgel] Nitroglycerin (INPATIENT USE) 0.4 mg SUBLINGUAL PRN PRN 09/30/16 [Nitrostat] Potassium Chloride [Klor-Con 20 meq PO DAILY 09/30/16 Sprinkle] Spironolactone [Aldactone] 25 mg PO BID 09/30/16 Vit B12/Levomefolate/Vit B6/B2 1,000 each PO DAILY 09/30/16 [l-Methyl-Mc Tablet] cycloBENZAPRine HCl [Flexeril] 5 mg PO TID PRN PRN 09/30/16 Ergocalciferol [Vitamin D] 50,000 unit PO QMONTH 12/09/16 Lidocaine [Lidoderm Patch] 1 patch TOPICAL DAILY 12/16/16 Hydrocodone Bitart/Apap 5-325 1 - 2 tablet PO Q4H PRN PRN #80 12/17/16 [Brandywine 5/325] tablet Lorazepam [Ativan] 0.5 mg PO BID #1 tablet 12/17/16 Acetaminophen 325 - 650 mg PO Q4H PRN 11/04/19 Albuterol Sulfate 2.5 mg IH Q2H PRN 11/04/19 Amoxicillin [Amoxil] 4 cap PO PRN 11/04/19 Calcium Polycarbophil [Fiber-Lax] 2 tab PO 4X/DAY 11/04/19 Cimetidine [Tagamet Hb] 200 mg PO BID 11/04/19 Levothyroxine [Synthroid] 88 mcg PO DAILY 11/04/19 Ofloxacin 1 drp LEFT EYE Q2H 11/04/19 Propylene Glycol/Peg 400/Pf 1 ea RIGHT EYE QHS 11/04/19 [Systane 0.3-0.4% Eye Drops] Repaglinide 0.25 mg PO DINNER 11/04/19 Warfarin Sodium 5 mg PO 11/04/19 Hydromorphone HCl [Dilaudid] 4 mg PO BID PRN PRN 11/06/19 Surgical History: appendectomy, arthroscopy, knee - left, cholecystectomy, colectomy - and ileostomy and then again for cancer in 2007, herniorrhaphy - umbilical, hysterectomy, total hip arthroplasty - left, - - oophorectomy in her 20s, bilateral bunion removal, right hammertoe repair, repair of hernaited nucleus pulposus of lumbar spine Smoking Status: Never smoker Alcohol: None Drugs: None - *Family History Maternal History Items: Heart Disease Paternal History Items: Heart Disease Review of Systems Constitutional: Reports: Weakness, Fatigue. Denies: Chills, Fever Eyes: Denies: Blurred vision, Double vision HEENT: Denies: Head Aches, Sinus Congestion, Sinus Drainage Cardiovascular: Denies: Chest Pain, Palpitations Respiratory: Denies: Cough, Shortness of breath at rest, Sputum production Gastrointestinal: Denies: Abdominal Pain, Nausea, Vomiting Genitourinary: Denies: Dysuria Musculoskeletal: Denies: Joint Pain, Joint Tenderness Skin: Denies: Rash, Wounds Neurological: Denies: Numbness, Tingling, Focal weakness Psychiatric: Denies: Anxiety, Depression, Homicidal Ideations, Suicidal Ideations Hematologic/ Lymphatic: Denies: Easy Bruising, Easy Bleeding Objective: The patient's most recent lab work, culture data and imaging studies have all been personally reviewed. - Physical Exam Vitals/I&O's: Vital Signs Temp Pulse Resp BP Pulse Ox 97.9 F 115 H 14 129/88 H 96 11/10/19 08:49 11/10/19 08:49 11/10/19 08:49 11/10/19 08:49 11/10/19 08:49 Oxygen Flow Rate (L/min) 2 Oxygen Delivery Method Nasal Cannula Weight: 172 lb 2.896 oz Body Mass Index (BMI) 32.5 Finger Stick Blood Glucose 150 Intake and Output for Last 24 Hours 11/08/19 11/09/19 11/10/19 23:59 23:59 23:59 Intake Total 1645.7 / 1845.7 1290 / 1290 75 / 75 Output Total 2075 / 2075 2885 / 2885 300 / 300 Balance -429.3 / -229.3 -1595 / -1595 -225 / -225 General: Alert, No apparent distress, - - Sitting in bedside recliner. HEENT: Atraumatic, Normocephalic Oral: No Gingival or Mucosal Lesions/ Ulcerations Neck: Supple, No Nodes, Trachea Midline Lungs: Diminished Cardiovascular: Irregular Rate, Murmur, Tachycardic Abdomen: Bowel Sounds Present, Soft, Non Tender, - - + Ostomy Extremities: No clubbing, No cyanosis Skin: - - Wrapped lower extremities Musculoskeletal: No Tenderness to Palpation of Joints or Extremities Lymphatic: No Cervical, Supraclavicular, or Inguinal Adenopathy Neurological: - - No focal neurological deficits Psych/Mental Status: Flat Affect Labs (Last 48 Hours) 11/07/19 11/08/19 11/08/19 06:57 11:38 16:54 WBC RBC Hgb Hct MCV MCH MCHC RDW Std Deviation RDW Coeff of Vannesa Plt Count MPV Immature Gran % (Auto) Neut % (Auto) Lymph % (Auto) [place] % (Auto) Eos % (Auto) Baso % (Auto) Absolute Neuts (auto) Absolute Lymphs (auto) Nucleated RBC % Diff Path Review Reviewed PT INR APTT Sodium Potassium Chloride Carbon Dioxide Anion Gap BUN Creatinine Estim Creat Clear Calc Est GFR (MDRD) Af Amer Est GFR (MDRD) Non-Af BUN/Creatinine Ratio Glucose Calcium Phosphorus Magnesium POC Glucose 166 H 211 H 11/08/19 11/09/19 11/09/19 22:22 06:12 06:12 WBC RBC Hgb Hct MCV MCH MCHC RDW Std Deviation RDW Coeff of [place] Plt Count MPV Immature Gran % (Auto) Neut % (Auto) Lymph % (Auto) [place] % (Auto) Eos % (Auto) Baso % (Auto) Absolute Neuts (auto) Absolute Lymphs (auto) Nucleated RBC % Diff Path Review PT 21.8 H INR 1.9 APTT Sodium 137 Potassium 5.1 Chloride 98 Carbon Dioxide 36.0 H Anion Gap 3 L BUN 26 H Creatinine 1.24 H Estim Creat Clear Calc 27.94 Est GFR (MDRD) Af Amer 53 L Est GFR (MDRD) Non-Af 44 L BUN/Creatinine Ratio 21.0 H Glucose 185 H Calcium 9.8 Phosphorus 3.0 Magnesium 2.2 POC Glucose 219 H 11/09/19 11/09/19 11/09/19 06:41 11:05 16:07 WBC RBC Hgb Hct MCV MCH MCHC RDW Std Deviation RDW Coeff of [place] Plt Count MPV Immature Gran % (Auto) Neut % (Auto) Lymph % (Auto) [place] % (Auto) Eos % (Auto) Baso % (Auto) Absolute Neuts (auto) Absolute Lymphs (auto) Nucleated RBC % Diff Path Review PT 21.8 H INR 1.9 APTT Sodium Potassium Chloride Carbon Dioxide Anion Gap BUN Creatinine Estim Creat Clear Calc Est GFR (MDRD) Af Amer Est GFR (MDRD) Non-Af BUN/Creatinine Ratio Glucose Calcium Phosphorus Magnesium POC Glucose 174 H 198 H 11/09/19 11/09/19 11/10/19 16:28 22:26 05:10 WBC 9.2 RBC 4.34 Hgb 13.6 Hct 42.3 MCV 97.5 MCH 31.3 MCHC 32.2 RDW Std Deviation 52.4 H RDW Coeff of Vannesa 14.8 H Plt Count 357 MPV 9.3 Immature Gran % (Auto) 0.400 Neut % (Auto) 83.7 H Lymph % (Auto) 7.0 L [place] % (Auto) 8.6 Eos % (Auto) 0.0 Baso % (Auto) 0.3 Absolute Neuts (auto) 7.7 Absolute Lymphs (auto) 0.64 L Nucleated RBC % 0 Diff Path Review PT INR APTT Sodium Potassium Chloride Carbon Dioxide Anion Gap BUN Creatinine Estim Creat Clear Calc Est GFR (MDRD) Af Amer Est GFR (MDRD) Non-Af BUN/Creatinine Ratio Glucose Calcium Phosphorus Magnesium POC Glucose 221 H 195 H 11/10/19 11/10/19 11/10/19 05:10 05:10 05:10 WBC RBC Hgb Hct MCV MCH MCHC RDW Std Deviation RDW Coeff of Vannesa Plt Count MPV Immature Gran % (Auto) Neut % (Auto) Lymph % (Auto) [place] % (Auto) Eos % (Auto) Baso % (Auto) Absolute Neuts (auto) Absolute Lymphs (auto) Nucleated RBC % Diff Path Review PT 22.7 H INR 2.0 APTT 45.1 H Sodium 134 L Potassium 4.9 Chloride 94 L Carbon Dioxide 34.0 H Anion Gap 6 BUN 28 H Creatinine 1.26 H Estim Creat Clear Calc 27.49 Est GFR (MDRD) Af Amer 52 L Est GFR (MDRD) Non-Af 43 L BUN/Creatinine Ratio 22.2 H Glucose 186 H Calcium 9.6 Phosphorus Magnesium POC Glucose Clinical Impression(s) from Imaging Studies Chest X-Ray 11/05/19 04:48 IMPRESSION: Chronic interestitial changes. Bilateral pleural effusions with mild basilar pulmonary edema at 0510 Reported and signed by: Alex Salazar MD Electronically Signed: Alex Salazar MD at 5:09 EST Tel , Service support , Chest X-Ray 11/06/19 05:55 IMPRESSION: Stable cardiomegaly with stable pulmonary edema and stable small to moderate pleural effusions Right shoulder prosthesis Findings likely chronic left shoulder rotator cuff pathology Lower thoracic dextroscoliosis, generalized osteopenia unchanged Electronically Signed: Abdullahi Corona at 7:44 EST Tel , Service support , Chest X-Ray 11/07/19 11:32 IMPRESSION: Mild consolidation/pulmonary edema of both lungs unchanged from the prior study. Electronically Signed: Bipin Woo MD at 13:52 EST , Service support , Current Medications Acetaminophen (Tylenol) 650 mg PO Q6H PRN PRN PRN Reason: Pain Score 1-3/Temp > 100.7 F Hydrocodone Bitart/Acetaminophen (Brandywine 5mg-325mg) 1 tablet PO Q8H PRN PRN PRN Reason: Mild-Mod Pain (1-5/10) Allopurinol (Zyloprim) 300 mg PO DAILY [facility] Last Admin: 11/10/19 09:12 Dose: 300 mg Documented by: Amiodarone HCl (Cordarone) 200 mg PO TID [facility] Stop: 11/13/19 22:01 Last Admin: 11/10/19 05:28 Dose: 200 mg Documented by: Amiodarone HCl (Cordarone) 200 mg PO BID [facility] Stop: 11/27/19 22:01 Amiodarone HCl (Cordarone) 200 mg PO DAILY [facility] Aspirin (Ecotrin) 81 mg PO DAILY@0800 [facility] Last Admin: 11/10/19 05:28 Dose: 81 mg Documented by: Atorvastatin Calcium (Lipitor) 20 mg PO QHS [facility] Last Admin: 11/09/19 22:29 Dose: 20 mg Documented by: Bumetanide (Bumex) 2 mg IV BID@1000,1800 [facility] Last Admin: 11/10/19 09:12 Dose: 2 mg Documented by: Citalopram Hydrobromide (Celexa) 40 mg PO DAILY [facility] Last Admin: 11/10/19 09:12 Dose: 40 mg Documented by: [facility] Last Admin: 11/10/19 09:11 Dose: 625 mg Documented by: Cyclobenzaprine HCl (Flexeril) 5 mg PO TID PRN PRN PRN Reason: SPASMS Dextrose (D50w Syringe) 0 gm IV X1 PRN; Protocol PRN Reason: Hypoglycemia Diltiazem HCl (Cardizem) 60 mg PO Q6 [facility] Last Admin: 11/10/19 05:27 Dose: 60 mg Documented by: Diphenoxylate HCl/Atropine (Lomotil) 1 tablet PO TIDCM [facility] Last Admin: 11/10/19 09:11 Dose: 1 tablet Documented by: Diphenoxylate HCl/Atropine (Lomotil) 2 tablet PO QHS [facility] Last Admin: 11/09/19 22:48 Dose: 2 tablet Documented by: Duloxetine HCl (Cymbalta) 60 mg PO DAILY [facility] Last Admin: 11/10/19 09:11 Dose: 60 mg Documented by: Enoxaparin Sodium (Lovenox) 80 mg SC Q12@0600,1800 [facility] Last Admin: 11/10/19 05:21 Dose: Not Given Documented by: Ergocalciferol (Vitamin D) 50,000 unit PO QMONTH [facility] Famotidine (Pepcid) 20 mg PO BID [facility] Last Admin: 11/10/19 09:12 Dose: 20 mg Documented by: [facility]Tricor) [facility] Last Admin: 11/10/19 09:10 Dose: 145 mg Documented by: Ferrous Sulfate (Ferrous Sulfate) 325 mg PO DAILY@0800 [facility] Last Admin: 11/10/19 09:10 Dose: 325 mg Documented by: Gabapentin (Neurontin) 400 mg PO TIDCM [facility] Last Admin: 11/10/19 09:11 Dose: 400 mg Documented by: Glucagon () 1 mg IM .X1 PRN PRN Reason: Hypoglycemia Hydromorphone HCl (Dilaudid Tablet) 4 mg PO BID PRN PRN PRN Reason: Pain Score 1-10/10 Last Admin: 11/08/19 20:40 Dose: 4 mg Documented by: Sodium Chloride () 500 mls @ 15 mls/hr IV PRN PRN PRN Reason: Blood Transfusion Sodium Chloride () 250 mls @ 15 mls/hr IV .[id number] PRN PRN Reason: Saline Flush Sodium Chloride () 250 mls @ 15 mls/hr IV .[id number] PRN PRN Reason: Additional IVPB Infusion Sodium Chloride () 1,000 mls @ 0 mls/hr IV .Q0M [facility] Insulin Human Lispro (Humalog Kwikpen (Bkc)) 0 unit SC ACHS [facility]; Protocol Last Admin: 11/10/19 09:06 Dose: 1 units Documented by: Ipratropium [place] (Atrovent) 0.5 mg INHALATION Q4H.RT [facility] Last Admin: 11/10/19 07:14 Dose: 0.5 mg Documented by: Levothyroxine Sodium (Synthroid) 112 mcg PO DAILY@0600 [facility] Last Admin: 11/10/19 05:28 Dose: 112 mcg Documented by: Lidocaine (Lidoderm Patch) 1 patch TOPICAL DAILY [facility]; Protocol Last Admin: 11/10/19 09:27 Dose: Not Given Documented by: Lorazepam (Ativan) 0.5 mg PO BID PRN PRN Reason: ANXIETY Last Admin: 11/04/19 00:10 Dose: 0.5 mg Documented by: Melatonin (Melatonin) 3 mg PO QHS PRN PRN PRN Reason: INSOMNIA Metoprolol Tartrate (Lopressor (Beta Jameel)) 50 mg PO BID [facility] Last Admin: 11/10/19 05:29 Dose: 50 mg Documented by: Nitroglycerin (Nitrostat) 0.4 mg SUBLINGUAL Q5M PRN PRN Reason: CARDIAC/CHEST PAIN Ondansetron HCl (Zofran) 4 mg IV Q8H PRN PRN PRN Reason: NAUSEA/VOMITING Last Admin: 11/09/19 22:49 Dose: 4 mg Documented by: Potassium Ch[facility] (K[facility]Dur) [facility] Last Admin: 11/10/19 09:10 Dose: 20 meq Documented by: Sodium Chloride () 10 - 40 ml IV UD PRN PRN Reason: SALINE FLUSH Last Admin: 11/09/19 22:49 Dose: 10 ml Documented by: Spironolactone (Aldactone) 25 mg PO BID [facility] Last Admin: 11/10/19 09:11 Dose: 25 mg Documented by: Sucralfate (Carafate) 1 gm PO TIDAC [facility] Last Admin: 11/10/19 08:40 Dose: Not Given Documented by: Assessment/Plan RECOMMENDATIONS: 1. Continue rate/rhythm control strategy per cardiology recommendations. 2. Encourage incentive spirometer use. 3. Mobilize patient as tolerated. 4. I see no indication for any additional pulmonary related work-up. 5. Perform walking oximetry study prior to consideration for discharge. 6. Will sign off. Please call with any additional questions. IMPRESSIONS: 1. Acute hypoxemic respiratory failure The patient's presenting symptoms, including her oxygen requirement appears to be related to her uncontrolled atrial fibrillation and decompensated heart failure with preserved ejection fraction. While there is some concern for potential chronic interstitial changes on chest x-ray, her imaging study from this morning shows improvement in the setting of rate/rhythm control and diuresis. If there is clinical concern for pneumonia, empiric antimicrobials can be initiated. However, the patient is currently afebrile and without an elevated white count. She additionally denies the presence of a cough. I was able to discontinue the patient's supplemental oxygen while at the bedside and she remained on room air with saturations in the mid and upper 90s. Accordingly, I see no indication for any additional pulmonary work-up. I would strongly encourage the patient to utilize her incentive spirometer. She has been quite immobile and would likely benefit from physical therapy evaluation and mobilization. I will defer management of her underlying cardiac manifestations. 2. Atrial fibrillation/decompensated heart failure Defer management to cardiology. The patient remains tachycardic. This note was generated with [employer] dictation software. It may contain incorrect words, spelling, and punctuation that were not noted in checking the note before signing. Code Visit Inpatient E&M: 48415 Init Hosp L3
[2019-11-10 10:26] LABS: Bedside Glucose 168 mg/dL (70-110)
[2019-11-10 11:06] LABS: Bedside Glucose 174 mg/dL (70-110)
[2019-11-10] MEDS: Sucralfate 1 GM Tablet PO ×2 (11:25→16:12)
[2019-11-10 11:30] LABS: Bedside Glucose 201 mg/dL (70-110)
--- NOTE | 2019-11-10 11:32 | CASEMGMT ---
Pt should be ready for discharge on the weekend to [facility]. SW completed hospital exemption and placed this on the chart along with a green sheet in anticipation of weekend discharge. SW called pt's sister Kiara Menard to update and speak w/her about the palliative referral. Sister Kiara states her sister had mentioned the palliative referral. SW explained pt would like Kiara present when pt meets w/palliative, and the plan is for palliative to meet w/pt at [facility]. Sister Kiara states understanding. SW called [facility], let admissions know that pt will be coming most likely this weekend. SW also let them know of the palliative referral. SW called [facility], spoke w/[place]. SW asked they follow up w/pt next week as she will be at [facility], and asked they contact pt's sister as pt would like her sister present during the meeting. Referral faxed. Plan: [facility] this weekend with a referral to palliative care. KARRI Greene
--- NOTE | 2019-11-10 13:32 | CASEMGMT ---
Social Work [facility] Palliative Medicine here to meet with pt and family. Papers signed to begin Palliative services. Palliative to follow at [facility]. ANANYA Weston
[2019-11-10 16:21] LABS: Bedside Glucose 167 mg/dL (70-110)
[2019-11-10] MEDS: Enoxaparin 80 MG/0.8 ML Syringe SC (17:38)
--- NOTE | 2019-11-10 18:51 | PN_ITS ---
Subjective: Patient was seen and examined today, I talked with cardiology several times today, cardiology decided not to put the patient through a cardiac cathet erization today-she continues to appear frail and cardiology felt it was better to treat the patient medically and to subject her to possible harm from a cardiac catheterization. Patient agreed to this. Patient was seen in consultation by pulmonary medicine to rule out any concomitant lung disease, pulmonary medicine felt that the patient had respiratory failure strictly from CHF. Patient has been on oxygen at assisted living for approximately 3 weeks according to nursing that I contacted yesterday at her assisted living facility. I talked with the patient's sister by phone today and gave her an update on the patient's medical condition and discharge plans. - Physical Exam Vitals/I&O's: Vital Signs Temp Pulse Resp BP Pulse Ox 97.8 F 112 H 16 121/94 H 96 11/10/19 17:31 11/10/19 17:31 11/10/19 17:31 11/10/19 17:31 11/10/19 17:31 Oxygen Flow Rate (L/min) 2 Oxygen Delivery Method Nasal Cannula Weight: 78.1 kg Body Mass Index (BMI) 32.5 Finger Stick Blood Glucose 150 Intake and Output for Last 24 Hours 11/08/19 11/09/19 11/10/19 23:59 23:59 23:59 Intake Total 1645.7 / 1845.7 1290 / 1290 1115 / 1115 Output Total 2075 / 2075 2885 / 2885 1150 / 1150 Balance -429.3 / -229.3 -1595 / -1595 -35 / -35 General: Cooperative, Well developed, Lethargic HEENT: Atraumatic, PERRLA, EOMI, Normocephalic Oral: Moist Mucosa Neck: Supple, Trachea Midline, Thyroid Normal Size and Texture Lungs: Normal air movement, No rhonchi, No wheeze, Diminished Cardiovascular: No murmurs, PMI Normal, Irregular Rate, No rub noted Abdomen: Bowel Sounds Present, Soft, Non Tender, Non-Distended Extremities: No clubbing, No cyanosis, No edema, Capillary Refill Less than 3 Seconds Skin: No rashes, No breakdown Musculoskeletal: No Tenderness to Palpation of Joints or Extremities Neurological: Cranial nerves II-XII grossly intact, Neuro grossly intact, Sensory exam intact to light touch and pain Psych/Mental Status: Flat Affect Laboratory Results 11/09/19 16:28: POC Glucose 221 H 11/09/19 22:26: POC Glucose 195 H 11/10/19 05:10: WBC 9.2, RBC 4.34, Hgb 13.6, Hct 42.3, MCV 97.5, MCH 31.3, MCHC 32.2, RDW Std Deviation 52.4 H, RDW Coeff of Vannesa 14.8 H, Plt Count 357, MPV 9.3, Immature Gran % (Auto) 0.400, Neut % (Auto) 83.7 H, Lymph % (Auto) 7.0 L, [place] % (Auto) 8.6, Eos % (Auto) 0.0, Baso % (Auto) 0.3, Absolute Neuts (auto) 7.7, Absolute Lymphs (auto) 0.64 L, Nucleated RBC % 0 11/10/19 05:10: PT 22.7 H, INR 2.0 11/10/19 05:10: Sodium 134 L, Potassium 4.9, Chloride 94 L, Carbon Dioxide 34.0 H, Anion Gap 6, BUN 28 H, Creatinine 1.26 H, Estim Creat Clear Calc 27.49, Est GFR (MDRD) Af Amer 52 L, Est GFR (MDRD) Non-Af 43 L, BUN/Creatinine Ratio 22.2 H , Glucose 186 H, Calcium 9.6 11/10/19 05:10: APTT 45.1 H 11/10/19 07:04: POC Glucose 174 H 11/10/19 09:05: POC Glucose 168 H 11/10/19 11:21: POC Glucose 201 H 11/10/19 16:09: POC Glucose 167 H Current Medications Acetaminophen (Tylenol) 650 mg PO Q6H PRN PRN PRN Reason: Pain Score 1-3/Temp > 100.7 F Allopurinol (Zyloprim) 300 mg PO DAILY [facility] Last Admin: 11/10/19 09:12 Dose: 300 mg Documented by: Amiodarone HCl (Cordarone) 200 mg PO TID [facility] Stop: 11/13/19 22:01 Last Admin: 11/10/19 13:53 Dose: 200 mg Documented by: Amiodarone HCl (Cordarone) 200 mg PO BID [facility] Stop: 11/27/19 22:01 Amiodarone HCl (Cordarone) 200 mg PO DAILY [facility] Aspirin (Ecotrin) 81 mg PO DAILY@0800 [facility] Last Admin: 11/10/19 05:28 Dose: 81 mg Documented by: Atorvastatin Calcium (Lipitor) 20 mg PO QHS [facility] Last Admin: 11/09/19 22:29 Dose: 20 mg Documented by: Bumetanide (Bumex) 2 mg IV BID@1000,1800 [facility] Last Admin: 11/10/19 17:38 Dose: 2 mg Documented by: Citalopram Hydrobromide (Celexa) 40 mg PO DAILY [facility] Last Admin: 11/10/19 09:12 Dose: 40 mg Documented by: Dextrose (D50w Syringe) 0 gm IV X1 PRN; Protocol PRN Reason: Hypoglycemia Diltiazem HCl (Cardizem Cd) 180 mg PO BID [facility] Diphenoxylate HCl/Atropine (Lomotil) 1 tablet PO TIDCM [facility] Last Admin: 11/10/19 16:12 Dose: 1 tablet Documented by: Diphenoxylate HCl/Atropine (Lomotil) 2 tablet PO QHS [facility] Last Admin: 11/09/19 22:48 Dose: 2 tablet Documented by: Duloxetine HCl (Cymbalta) 60 mg PO DAILY [facility] Last Admin: 11/10/19 09:11 Dose: 60 mg Documented by: Enoxaparin Sodium (Lovenox) 80 mg SC Q12@0600,1800 [facility] Last Admin: 11/10/19 17:38 Dose: 80 mg Documented by: Ergocalciferol (Vitamin D) 50,000 unit PO QMONTH [facility] Famotidine (Pepcid) 20 mg PO BID [facility] Last Admin: 11/10/19 09:12 Dose: 20 mg Documented by: Fenofibrate (Tricor) 145 mg PO DAILYCM [facility] Last Admin: 11/10/19 09:10 Dose: 145 mg Documented by: Ferrous Sulfate (Ferrous Sulfate) 325 mg PO DAILY@0800 [facility] Last Admin: 11/10/19 09:10 Dose: 325 mg Documented by: Gabapentin (Neurontin) 400 mg PO TIDCM [facility] Last Admin: 11/10/19 16:12 Dose: 400 mg Documented by: Glucagon () 1 mg IM .X1 PRN PRN Reason: Hypoglycemia Hydromorphone HCl (Dilaudid Tablet) 2 mg PO BID PRN PRN PRN Reason: Pain Score 1-10/10 Sodium Chloride () 500 mls @ 15 mls/hr IV PRN PRN PRN Reason: Blood Transfusion Sodium Chloride () 250 mls @ 15 mls/hr IV .[id number] PRN PRN Reason: Saline Flush Sodium Chloride () 250 mls @ 15 mls/hr IV .[id number] PRN PRN Reason: Additional IVPB Infusion Sodium Chloride () 1,000 mls @ 0 mls/hr IV .Q0M [facility] Insulin Human Lispro (Humalog Kwikpen (Bkc)) 0 unit SC ACHS [facility]; Protocol Last Admin: 11/10/19 16:11 Dose: 1 units Documented by: Ipratropium [place] (Atrovent) 0.5 mg INHALATION Q4H.RT [facility] Last Admin: 11/10/19 14:20 Dose: Not Given Documented by: Levothyroxine Sodium (Synthroid) 112 mcg PO DAILY@0600 [facility] Last Admin: 11/10/19 05:28 Dose: 112 mcg Documented by: Lidocaine (Lidoderm Patch) 1 patch TOPICAL DAILY [facility]; Protocol Last Admin: 11/10/19 09:27 Dose: Not Given Documented by: Lorazepam (Ativan) 0.5 mg PO BID PRN PRN Reason: ANXIETY Last Admin: 11/04/19 00:10 Dose: 0.5 mg Documented by: Melatonin (Melatonin) 3 mg PO QHS PRN PRN PRN Reason: INSOMNIA Metoprolol Tartrate (Lopressor (Beta Jameel)) 50 mg PO BID [facility] Last Admin: 11/10/19 05:29 Dose: 50 mg Documented by: Nitroglycerin (Nitrostat) 0.4 mg SUBLINGUAL Q5M PRN PRN Reason: CARDIAC/CHEST PAIN Ondansetron HCl (Zofran) 4 mg IV Q8H PRN PRN PRN Reason: NAUSEA/VOMITING Last Admin: 11/09/19 22:49 Dose: 4 mg Documented by: Potassium [facility] ([facility]) [facility] Last Admin: 11/10/19 16:12 Dose: 20 meq Documented by: Sodium Chloride () 10 - 40 ml IV UD PRN PRN Reason: SALINE FLUSH Last Admin: 11/09/19 22:49 Dose: 10 ml Documented by: Spironolactone (Aldactone) 25 mg PO BID [facility] Last Admin: 11/10/19 09:11 Dose: 25 mg Documented by: Medical Necessity - Tobacco Use Smoking Status: Never smoker Assessment/Plan #1 chronic atrial fib with RVR-cardiology is continue to adjust medications, patient's Cardizem was increased today #2 acute hypoxic respiratory failure secondary to diastolic congestive heart failure-continue to wean oxygen if possible #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
[2019-11-10] MEDS: Ondansetron 4 MG/2 ML Vial IV (21:54)
[2019-11-10 22:40] LABS: Bedside Glucose 183 mg/dL (70-110)
[2019-11-10] MEDS: Atorvastatin Calcium 20 MG Tablet PO (22:44)
[2019-11-10] MEDS: dilTIAZem CD 180 MG Capsule PO (22:47)
[2019-11-10] MEDS: Diphenoxylate/Atrop 1 Tablet 2 TABLET PO (22:53)
[2019-11-11] VITALS (19 sets, daily range): BP systolic 106–151; BP diastolic 65–91; PULSE 103–144; RESP 16–20; TEMP 36.4–36.8; O2SAT 91–97
[2019-11-11] MEDS: Levothyroxine 112 MCG Tablet PO (05:32)
[2019-11-11] MEDS: Enoxaparin 80 MG/0.8 ML Syringe SC ×2 (05:32→17:46)
[2019-11-11] MEDS: Amiodarone 200 MG Tablet PO ×3 (05:33→22:09)
[2019-11-11] MEDS: Ondansetron 4 MG/2 ML Vial IV ×3 (06:38→22:19)
[2019-11-11] MEDS: Insulin Lispro 100 UNIT/ML INSULN.PEN SC ×2 (06:38→22:09)
[2019-11-11] MEDS: 0.9% Saline Lock 10 ML Syringe IV ×5 (06:38→22:18)
[2019-11-11 06:50] LABS: Bedside Glucose 178 mg/dL (70-110)
[2019-11-11] MEDS: Ipratropium 0.5 MG/2.5 ML SOLUTION INHALATION ×2 (06:53→11:14)
[2019-11-11] MEDS: Ferrous Sulfate 325 MG Tablet PO (08:54)
[2019-11-11] MEDS: Aspirin E.C. 81 MG Tablet PO (08:54)
[2019-11-11] MEDS: Fenofibrate 145 MG Tablet PO (08:56)
[2019-11-11] MEDS: Gabapentin 400 MG Capsule PO ×3 (08:56→17:45)
[2019-11-11] MEDS: dilTIAZem CD 180 MG Capsule PO ×2 (08:57→22:08)
[2019-11-11] MEDS: Bumetanide 1 MG/4 ML Vial 2 MG IV ×2 (08:57→17:46)
[2019-11-11] MEDS: Citalopram 40 MG TABLET PO (08:57)
[2019-11-11] MEDS: Spironolactone 25 MG Tablet PO ×2 (08:57→22:08)
[2019-11-11] MEDS: Lidocaine 5% Patch 1 PATCH TOPICAL (08:58)
[2019-11-11] MEDS: Metoprolol Tartrate 50 MG Tablet PO (08:58)
[2019-11-11] MEDS: DULoxetine Hcl 60 MG Capsule PO (08:58)
[2019-11-11] MEDS: Allopurinol 300 MG Tablet PO (08:59)
[2019-11-11] MEDS: Famotidine 20 MG Tablet PO ×2 (08:59→22:11)
[2019-11-11 09:11] LABS: International Normalized Ratio 1.9; Prothrombin Time (Protime)PT. 21.9 SECONDS (11.7-14.9)
[2019-11-11] MEDS: Diphenoxylate/Atrop 1 Tablet PO ×3 (09:17→17:49)
[2019-11-11 09:18] LABS: Anion Gap 8 (5-15); BUN 33 mg/dL (7-18); BUN/Creat Ratio 22.8 RATIO (10-20); Calcium,Total 10.2 mg/dL (8.5-10.1); Chloride 91 mmol/L (98-107); Creatinine, Serum 1.45 mg/dL (0.55-1.02); EST Glomerular Filtration Rate 37 mL/min (>60); Est Glom Filt Rate - Afr Amer 44 mL/min (>60); Estimated Creatinine Clearance 23.89 ml/min; Glucose 183 mg/dL (74-106); Potassium 4.8 mmol/L (3.5-5.1); Sodium Level 132 mmol/L (136-145)
[2019-11-11 11:55] LABS: Bedside Glucose 203 mg/dL (70-110)
[2019-11-11] MEDS: Metoprolol Tartrate 25 MG Tablet 50 MG PO (12:06)
--- NOTE | 2019-11-11 14:35 | RAD_ITS ---
STUDY: X-RAY - ABDOMEN/PELVIS REASON FOR EXAM: Female, 84 years old. ABDOMINAL PAIN TECHNIQUE: Single AP view of the abdomen / pelvis. COMPARISON: None. FINDINGS: Normal visualized lung bases. Gaseous distention of stomach and colon but no dilated loops of small bowel seen. There is no demonstrated free abdominal air. The visualized liver, spleen and kidneys are grossly normal in size and morphology. Normal soft tissue structures. Bilateral hip replacements identified. Cholecystectomy clips are present. There are degenerative and scoliotic changes of the lumbar spine. RAD/Abdomen Single View (Portable) IMPRESSION: Nonspecific, nonobstructive bowel gas pattern. Air distention of stomach and colon. Electronically Signed: Benjamin Villatoro MD ([place]) at 14:52 EST , Service support ,
[2019-11-11] MEDS: Digoxin 250 MCG/ML Ampul 500 MCG IV (14:43)
[2019-11-11] MEDS: HYDROmorphone 2 MG TABLET PO (14:50)
[2019-11-11 18:00] LABS: Bedside Glucose 211 mg/dL (70-110)
--- NOTE | 2019-11-11 18:36 | PN_ITS ---
Subjective: Patient was seen and examined today, she had been complaining of some generalized abdominal pain this afternoon, I ordered a KUB on the patient who d id not show anything specific only gaseous distention of the stomach and colon but no dilated loops of small bowel. No free abdominal air was noted and there was no evidence of obstructive bowel gas pattern. Patient's heart rate has been elevated today-sometimes in the 120s- 130s range. I placed the patient on digoxin this afternoon and changed her metoprolol to extended release metoprolol. Patient's urine output has fallen, I have decided to stop the patient's Bumex for now. - Physical Exam Vitals/I&O's: Vital Signs Temp Pulse Resp BP Pulse Ox 98.1 F 103 H 20 H 132/85 H 97 11/11/19 17:44 11/11/19 17:44 11/11/19 17:44 11/11/19 17:44 11/11/19 17:44 Oxygen Flow Rate (L/min) 2 Oxygen Delivery Method Nasal Cannula Weight: 75.7 kg Body Mass Index (BMI) 32.5 Finger Stick Blood Glucose 150 Intake and Output for Last 24 Hours 11/09/19 11/10/19 11/11/19 23:59 23:59 23:59 Intake Total 1290 / 1290 1315 / 1315 770 / 770 Output Total 2885 / 2885 1750 / 1750 1775 / 1775 Balance -1595 / -1595 -435 / -435 -1005 / -1005 General: Alert, Oriented x3, Cooperative, Well developed HEENT: Atraumatic, PERRLA, EOMI, Normocephalic Oral: Moist Mucosa Neck: Supple, Trachea Midline, Thyroid Normal Size and Texture Lungs: No rhonchi, No wheeze, Diminished Cardiovascular: PMI Normal, Irregular Rate, No rub noted Abdomen: Bowel Sounds Present, Soft, No hernias noted Extremities: No clubbing, No cyanosis, No edema, Capillary Refill Less than 3 Seconds Skin: No rashes, No breakdown Musculoskeletal: No Tenderness to Palpation of Joints or Extremities Neurological: Cranial nerves II-XII grossly intact, Neuro grossly intact, Sensory exam intact to light touch and pain Psych/Mental Status: Normal Affect, Appropriate, Alert and oriented to time, place, person, mood and affect Laboratory Results 01/17/20 22:18: POC Glucose 183 H 11/11/19 06:36: POC Glucose 178 H 11/11/19 08:50: PT 21.9 H, INR 1.9 11/11/19 08:50: Sodium 132 L, Potassium 4.8, Chloride 91 L, Carbon Dioxide 33.0 H, Anion Gap 8, BUN 33 H, Creatinine 1.45 H, Estim Creat Clear Calc 23.89, Est GFR (MDRD) Af Amer 44 L, Est GFR (MDRD) Non-Af 37 L, BUN/Creatinine Ratio 22.8 H , Glucose 183 H, Calcium 10.2 H 11/11/19 11:51: POC Glucose 203 H 11/11/19 17:42: POC Glucose 211 H Current Medications Acetaminophen (Tylenol) 650 mg PO Q6H PRN PRN PRN Reason: Pain Score 1-3/Temp > 100.7 F Allopurinol (Zyloprim) 300 mg PO DAILY [facility] Last Admin: 11/11/19 08:59 Dose: 300 mg Documented by: Amiodarone HCl (Cordarone) 200 mg PO TID [facility] Stop: 11/13/19 22:01 Last Admin: 11/11/19 13:12 Dose: 200 mg Documented by: Amiodarone HCl (Cordarone) 200 mg PO BID [facility] Stop: 11/27/19 22:01 Amiodarone HCl (Cordarone) 200 mg PO DAILY [facility] Aspirin (Ecotrin) 81 mg PO DAILY@0800 [facility] Last Admin: 11/11/19 08:54 Dose: 81 mg Documented by: Atorvastatin Calcium (Lipitor) 20 mg PO QHS [facility] Last Admin: 11/10/19 22:44 Dose: 20 mg Documented by: Citalopram Hydrobromide (Celexa) 40 mg PO DAILY [facility] Last Admin: 11/11/19 08:57 Dose: 40 mg Documented by: Dextrose (D50w Syringe) 0 gm IV X1 PRN; Protocol PRN Reason: Hypoglycemia Digoxin (Lanoxin) 250 mcg IV X1 ONE Stop: 11/11/19 20:01 Diltiazem HCl (Cardizem Cd) 180 mg PO BID [facility] Last Admin: 11/11/19 08:57 Dose: 180 mg Documented by: Diphenoxylate HCl/Atropine (Lomotil) 1 tablet PO TIDCM [facility] Last Admin: 11/11/19 17:49 Dose: 1 tablet Documented by: Diphenoxylate HCl/Atropine (Lomotil) 2 tablet PO QHS [facility] Last Admin: 11/10/19 22:53 Dose: 2 tablet Documented by: Duloxetine HCl (Cymbalta) 60 mg PO DAILY [facility] Last Admin: 11/11/19 08:58 Dose: 60 mg Documented by: Enoxaparin Sodium (Lovenox) 80 mg SC Q12@0600,1800 [facility] Last Admin: 11/11/19 17:46 Dose: 80 mg Documented by: Ergocalciferol (Vitamin D) 50,000 unit PO QMONTH [facility] Famotidine (Pepcid) 20 mg PO BID [facility] Last Admin: 11/11/19 08:59 Dose: 20 mg Documented by: Fenofibrate (Tricor) 145 mg PO DAILYCM [facility] Last Admin: 11/11/19 08:56 Dose: 145 mg Documented by: Ferrous Sulfate (Ferrous Sulfate) 325 mg PO DAILY@0800 [facility] Last Admin: 11/11/19 08:54 Dose: 325 mg Documented by: Gabapentin (Neurontin) 400 mg PO TIDCM [facility] Last Admin: 11/11/19 17:45 Dose: 400 mg Documented by: Glucagon () 1 mg IM .X1 PRN PRN Reason: Hypoglycemia Hydromorphone HCl (Dilaudid Tablet) 2 mg PO BID PRN PRN PRN Reason: Pain Score 1-10/10 Last Admin: 11/11/19 14:50 Dose: 2 mg Documented by: Sodium Chloride () 500 mls @ 15 mls/hr IV PRN PRN PRN Reason: Blood Transfusion Sodium Chloride () 250 mls @ 15 mls/hr IV .[id number] PRN PRN Reason: Saline Flush Sodium Chloride () 250 mls @ 15 mls/hr IV .[id number] PRN PRN Reason: Additional IVPB Infusion Sodium Chloride () 1,000 mls @ 0 mls/hr IV .Q0M [facility] Insulin Human Lispro (Humalog Kwikpen (Bkc)) 0 unit SC ACHS [facility]; Protocol Last Admin: 11/11/19 17:45 Dose: Not Given Documented by: Levothyroxine Sodium (Synthroid) 112 mcg PO DAILY@0600 [facility] Last Admin: 11/11/19 05:32 Dose: 112 mcg Documented by: Lidocaine (Lidoderm Patch) 1 patch TOPICAL DAILY [facility]; Protocol Last Admin: 11/11/19 08:58 Dose: 1 patch Documented by: Lorazepam (Ativan) 0.5 mg PO BID PRN PRN Reason: ANXIETY Last Admin: 11/04/19 00:10 Dose: 0.5 mg Documented by: Melatonin (Melatonin) 3 mg PO QHS PRN PRN PRN Reason: INSOMNIA Metoprolol Succinate (Toprol Xl (Beta Jameel)) 50 mg PO BID [facility] Ondansetron HCl (Zofran) 4 mg IV Q8H PRN PRN PRN Reason: NAUSEA/VOMITING Last Admin: 11/11/19 06:38 Dose: 4 mg Documented by: Pot[facility] Ch[facility] ([facility]Dur) [facility] Last Admin: 11/11/19 17:45 Dose: 20 meq Documented by: Sodium Chloride () 10 - 40 ml IV UD PRN PRN Reason: SALINE FLUSH Last Admin: 11/11/19 17:46 Dose: 10 ml Documented by: Spironolactone (Aldactone) 25 mg PO BID [facility] Last Admin: 11/11/19 08:57 Dose: 25 mg Documented by: Medical Necessity - Tobacco Use Smoking Status: Never smoker Assessment/Plan #1 chronic atrial fib with RVR-medication changes were made today, continue to observe patient #2 acute hypoxic respiratory failure secondary to diastolic congestive heart failure-continue to wean oxygen if possible #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, patient's INR today was 1.9, I gave the patient another dose of warfarin today, I will recheck her INR tomorrow #4 acute diastolic congestive heart failure-patient's Bumex will be held for now due to low urine output #5 type 2 diabetes #6 aortic stenosis-moderate #7 pulmonary hypertension #8 moderate mitral regurg #9 chronic pain syndrome secondary to osteoarthritis and spinal stenosis #10 hyperlipidemia #11 abdominal distention-possibly secondary to supplemental oxygen usage, continue to observe, patient will be placed on a clear liquid diet for now Code Visit Inpatient E&M: 91212 Subs Hosp L2
[2019-11-11] MEDS: Digoxin 250 MCG/ML Ampul IV (20:22)
[2019-11-11] MEDS: Metoprolol(XL)Succ 50 MG Tablet PO (22:12)
[2019-11-11] MEDS: Atorvastatin Calcium 20 MG Tablet PO (22:12)
[2019-11-11] MEDS: LORazepam 0.5 MG Tablet PO (22:18)
[2019-11-11 22:20] LABS: Bedside Glucose 198 mg/dL (70-110)
[2019-11-12] VITALS (23 sets, daily range): BP systolic 74–146; BP diastolic 36–110; PULSE 69–120; RESP 16–21; TEMP 36.7–39.2; O2SAT 93–98
[2019-11-12] MEDS: proMETHazine 25 MG/ML Syringe 6.25 MG IV (00:22)
[2019-11-12] MEDS: 0.9% Saline Lock 10 ML Syringe IV ×2 (00:22→16:50)
[2019-11-12] MEDS: Amiodarone 200 MG Tablet PO (06:34)
[2019-11-12] MEDS: Enoxaparin 80 MG/0.8 ML Syringe SC (06:34)
[2019-11-12] MEDS: Levothyroxine 112 MCG Tablet PO (06:34)
[2019-11-12] MEDS: Insulin Lispro 100 UNIT/ML INSULN.PEN SC (06:37)
[2019-11-12 06:50] LABS: Bedside Glucose 196 mg/dL (70-110)
[2019-11-12] MEDS: Ondansetron 4 MG/2 ML Vial IV (08:08)
[2019-11-12] MEDS: HYDROmorphone 2 MG TABLET PO (08:29)
--- NOTE | 2019-11-12 08:31 | CT_ITS ---
STUDY: CT ABDOMEN AND PELVIS WITHOUT CONTRAST REASON FOR EXAM: Female, 84 years old patient with abdominal pain and distention. Past medical history of colon cancer with colon resection. Patient has chronic renal disease stage 2. RADIATION DOSAGE (If Supplied By Facility): CTDIvol = ( 17.91 ) mGy, DLP = ( 823.06 ) mGycm TECHNIQUE: Transaxial images were obtained from the dome of the diaphragm to the symphysis pubis without oral contrast, and without intravenous contrast. Sagittal and coronal images were reconstructed. Individualized dose optimization techniques were used for this CT. COMPARISON: Prior comparison studies are not available for review at this time. FINDINGS: There is bilateral basilar airspace consolidation and atelectasis. The visualized portions of the heart are within normal limits. Patient has coronary artery vascular calcifications. Normal liver. There are surgical clips in the gallbladder fossa consistent with a prior cholecystectomy. Normal spleen. There is diffuse atrophy of the pancreas. Normal bilateral adrenal glands. Both kidneys have normal size and position. There are multiple lucencies in both kidneys that may represent cysts. There is no evidence for hydronephrosis, hydroureter or radiopaque ureteral calculi. The stomach is very distended with fluid. There is fluid filled small bowel with mild dilatation. Maximum transverse dimension of small bowel is approximately 5.1 cm. The patient apparently has had almost complete colon resection. There is non-visualization of the appendix. There is diffuse atherosclerotic calcification of the abdominal aorta with elongation and tortuosity, but without a demonstrated aneurysm. The IVC is slitlike suggesting hypovolemia and dehydration. Normal retroperitoneum. Normal urinary bladder. There is absence of the uterus consistent with a prior hysterectomy. The patient has a right lower quadrant ostomy. The bones are osteopenic. There is mild curvature of the thoracic and lumbar spine with convexity towards the left. There is multilevel degenerative disc disease with disc space narrowing and vacuum disc phenomenon. There is irregularity of several of the endplates possibly secondary to Schmorl''s nodes. CT/Abdomen/Pelvis without Cont IMPRESSION: 1. CT findings suggest a bowel obstruction. The transition appears to occur in the right lower quadrant. 2. Fluid-filled bowel suggest possible acute infectious or inflammatory process. 3. Bilateral basilar airspace consolidation and/or atelectasis could represent pneumonia. Electronically Signed: Elizabeth Menard MD at 10:13 EST , Service support ,
[2019-11-12 08:36] LABS: Allen Test POS; Base Excess 14 mmol/L (-2 to +2); Bicarbonate 35.9 mmol/L (22-26); Blood Gas Specimen Type ART; O2 Delivery Device Nasal Can; PO2 84 mmHG (75-100); SITE R Brachial; SO2 97 % (95-99); Time Given 831; Total Carbon Dioxide 37 mmol/L; pH 7.55 (7.35-7.45)
[2019-11-12 08:41] LABS: Absolute Lymphocyte Count 0.84 X10^3/uL (0.83-4.51); Absolute Neutrophil Count 17.8 X10^3/uL (2.0-7.7); Basophil# 0.05 X10^3/uL; Basophil% 0.2 % (0-1); Differential Indicated SCAN CRITERIA MET; Hematocrit 44.1 % (37-47); Hemoglobin 14.9 g/dL (12.0-15.0); Lymphocyte # 0.84 X10^3/ul (4.0); Lymphocyte % 4.1 % (19-41); Mean Corp Hgb Conc 33.8 g/dL (32-36); Mean Corpuscular Volume 94.8 fL (81-99); Mean Platelet Vol. 10.1 fl (6.2-12.0); Monocyte# 1.71 X10^3/uL; Monocyte% 8.3 % (0-10); NRBC Flagged by Analyzer 0 % (0-5); Neutrophil % 86.5 % (47-70); POSITIVE DIFFERENTIAL YES; Platelet Count 400 K/mm3 (150-450); RBC Distribution Width CV 14.1 % (11.6-14.6); Red Blood Count 4.65 M/mm3 (4.2-5.4); White Blood Count 20.6 K/mm3 (4.4-11.0)
[2019-11-12 08:45] LABS: Prothrombin Time (Protime)PT. 31.6 SECONDS (11.7-14.9)
[2019-11-12 08:47] LABS: Anion Gap 10 (5-15); BUN 47 mg/dL (7-18); BUN/Creat Ratio 19.3 RATIO (10-20); Chloride 89 mmol/L (98-107); Creatinine, Serum 2.44 mg/dL (0.55-1.02); EST Glomerular Filtration Rate 20 mL/min (>60); Est Glom Filt Rate - Afr Amer 24 mL/min (>60); Glucose 199 mg/dL (74-106); Potassium 5.7 mmol/L (3.5-5.1); Sodium Level 128 mmol/L (136-145)
[2019-11-12 09:06] LABS: Platelet Estimate ADEQUATE (ADEQ); Red Cell Morphology NORM C+C NORMAL (NORM C&C)
[2019-11-12] MEDS: morphine 10 MG/ML Syringe IM (11:00)
[2019-11-12] MEDS: Lidocaine 5% Patch 1 PATCH TOPICAL (11:10)
[2019-11-12 11:25] LABS: Bedside Glucose 228 mg/dL (70-110)
--- NOTE | 2019-11-12 11:30 | CON.PCM_ITS ---
Problem List (1) SBO (small bowel obstruction) Status: Acute Reason for Consult Date of Consultation: 11/12/19 Reason for Consultation: Small bowel obstruction History of Present Illness: The patient is a 84 year old F who is here with multiple medical issues. The patient reports that yesterday she started having vomiting and abdominal pain. She was having output from her ileostomy yesterday in the stopped overnight. She had vomiting yesterday evening. She is complaining of diffuse abdominal pain. Past Medical History Past Medical History (Chronic Problems): Chronic Problems (Last Updated 11/03/19 @ 19:28 by Yuri Martin DO) Familial combined hyperlipidemia (Chronic) Hypothyroidism (Chronic) Recurrent dislocation of hip (Chronic) Porphyria (Chronic) Osteoporosis (Chronic) H/O iron deficiency anemia (Chronic) Gout (Chronic) Factor V deficiency (Chronic) Chronic anticoagulation (Chronic) Type 2 diabetes mellitus (Chronic) History of deep venous thrombosis or pulmonary embolus (Chronic) Adrenal hyperplasia (Chronic) Chronic diarrhea (Chronic) Spinal stenosis (Chronic) Overactive bladder (Chronic) Vitamin D deficiency (Chronic) Depression with anxiety (Chronic) CAD (coronary artery disease) (Chronic) Medical History: Medical History (Last Updated 11/03/19 @ 19:28 by Yuri Martin DO) CHF (congestive heart failure) I50.9 Cervical radiculopathy M54.12 Colon cancer C18.9 s/p resection DM2 (diabetes mellitus, type 2) E11.9 Degenerative disc disease Factor V deficiency D68.2 GERD (gastroesophageal reflux disease) K21.9 Guillain-[place] G61.0 resolved Hyperlipidemia E78.5 Hypothyroid E03.9 Osteoporosis M81.0 Peripheral neuropathy G62.9 Porphyria E80.20 VTE (venous thromboembolism) I82.90 Vitamin D deficiency E55.9 CKD (chronic kidney disease) stage 2, GFR 60-89 ml/min N18.2 HTN (hypertension) I10 Allergies Sulfa (Sulfonamide Antibiotics) Allergy (Verified 12/09/16 10:54) Rash Home Medications: Ambulatory Orders Medication Instructions Recorded Allopurinol [Zyloprim] 300 mg PO DAILY 09/30/16 Atorvastatin Calcium [Lipitor] 20 mg PO QHS 09/30/16 Bumetanide [Bumex] 0.5 mg PO BID 09/30/16 Citalopram [Celexa] 40 mg PO DAILY 09/30/16 Colesevelam Hydrochloride [Welchol] 625 mg PO BIDCM 09/30/16 Diphenoxylate HCl/Atropine 1 tab PO TID 09/30/16 [Lomotil 2.5-0.025 mg Tablet] Duloxetine HCl 60 mg PO DAILY 09/30/16 Ferrous Sulfate 65 mg PO DAILY@0800 09/30/16 Gabapentin [Neurontin] 400 mg PO TIDCM 09/30/16 Lidocaine 5% 5 % TOPICAL DAILY 09/30/16 Metoprolol Tartrate [Lopressor 25 mg PO BID 09/30/16 (beta jameel)] Multivit-Min/Iron/Folic Acid/K 1 each PO DAILY 09/30/16 [Multi For Her Softgel] Nitroglycerin (INPATIENT USE) 0.4 mg SUBLINGUAL PRN PRN 09/30/16 [Nitrostat] Potassium Chloride [Klor-Con 20 meq PO DAILY 09/30/16 Sprinkle] Spironolactone [Aldactone] 25 mg PO BID 09/30/16 Vit B12/Levomefolate/Vit B6/B2 1,000 each PO DAILY 09/30/16 [l-Methyl-Mc Tablet] cycloBENZAPRine HCl [Flexeril] 5 mg PO TID PRN PRN 09/30/16 Ergocalciferol [Vitamin D] 50,000 unit PO QMONTH 12/09/16 Lidocaine [Lidoderm Patch] 1 patch TOPICAL DAILY 12/16/16 Hydrocodone Bitart/Apap 5-325 1 - 2 tablet PO Q4H PRN PRN #80 12/17/16 [[place] 5/325] tablet Lorazepam [Ativan] 0.5 mg PO BID #1 tablet 12/17/16 Acetaminophen 325 - 650 mg PO Q4H PRN 11/04/19 Albuterol Sulfate 2.5 mg IH Q2H PRN 11/04/19 Amoxicillin [Amoxil] 4 cap PO PRN 11/04/19 Calcium Polycarbophil [Fiber-Lax] 2 tab PO 4X/DAY 11/04/19 Cimetidine [Tagamet Hb] 200 mg PO BID 11/04/19 Levothyroxine [Synthroid] 88 mcg PO DAILY 11/04/19 Ofloxacin 1 drp LEFT EYE Q2H 11/04/19 Propylene Glycol/Peg 400/Pf 1 ea RIGHT EYE QHS 11/04/19 [Systane 0.3-0.4% Eye Drops] Repaglinide 0.25 mg PO DINNER 11/04/19 Warfarin Sodium 5 mg PO 11/04/19 Hydromorphone HCl [Dilaudid] 4 mg PO BID PRN PRN 11/06/19 Surgical History: appendectomy, arthroscopy, knee - left, cholecystectomy, colectomy - and ileostomy and then again for cancer in 2007, herniorrhaphy - umbilical, hysterectomy, total hip arthroplasty - left, - - oophorectomy in her 20s, bilateral bunion removal, right hammertoe repair, repair of hernaited nucleus pulposus of lumbar spine Smoking Status: Never smoker Alcohol: None Drugs: None - *Family History Maternal History Items: Heart Disease Paternal History Items: Heart Disease Review of Systems Constitutional: Denies: Anorexia, Fever HEENT: Denies: Difficulty Swallowing Gastrointestinal: Reports: Abdominal Pain, Nausea, Vomiting Patient Problems: Active and Suspected Problems (Last Updated 11/03/19 @ 19:28 by Yuri Martin DO) SBO (small bowel obstruction) (Acute) - Physical Exam Vitals/I&O's: Vital Signs Temp Pulse Resp BP Pulse Ox 100.8 F H 112 H 20 H 135/70 H 95 11/12/19 10:00 11/12/19 10:00 11/12/19 10:00 11/12/19 10:00 11/12/19 10:00 Oxygen Flow Rate (L/min) 4 Oxygen Delivery Method Nasal Cannula Weight: 166 lb 0.129 oz Body Mass Index (BMI) 32.5 Finger Stick Blood Glucose 150 Intake and Output for Last 24 Hours 11/10/19 11/11/19 11/12/19 23:59 23:59 23:59 Intake Total 1315 / 1315 910 / 910 100 / 100 Output Total 1750 / 1750 5 / 2075 Balance -435 / -435 -1165 / -1165 100 / 100 General: Alert HEENT: Atraumatic Neck: No JVD Cardiovascular: Irregular Rate, Tachycardic Abdomen: Soft, Distended, Tender, - - Ileostomy with dark stool Neurological: Cranial nerves II-XII grossly intact Laboratory Results 11/11/19 11:51: POC Glucose 203 H 11/11/19 17:42: POC Glucose 211 H 11/11/19 22:02: POC Glucose 198 H 11/12/19 06:36: POC Glucose 196 H 11/12/19 08:12: PT 31.6 H, INR 3.0 11/12/19 08:12: Sodium 128 L, Potassium 5.7 H, Chloride 89 L, Carbon Dioxide 29.0, Anion Gap 10, BUN 47 H, Creatinine 2.44 H, Estim Creat Clear Calc 14.20, Est GFR (MDRD) Af Amer 24 L, Est GFR (MDRD) Non-Af 20 L, BUN/Creatinine Ratio 19.3, Glucose 199 H, Calcium 10.0 11/12/19 08:12: WBC 20.6 H, RBC 4.65, Hgb 14.9, Hct 44.1, MCV 94.8, MCH 32.0, MCHC 33.8, RDW Std Deviation 49.0 H, RDW Coeff of [place]ann[place] 14.1, Plt Count 400, MPV 10.1, Immature Gran % (Auto) 0.900, Neut % (Auto) 86.5 H, Lymph % (Auto) 4.1 L, [place] % (Auto) 8.3, Eos % (Auto) 0.0, Baso % (Auto) 0.2, Absolute Neuts (auto) 17.8 H, Absolute Lymphs (auto) 0.84, Nucleated RBC % 0, Diff Path Review May foll, Platelet Estimate ADEQUATE, RBC Morphology NORM C+C 11/12/19 08:32: Specimen Type ART, Sample Site R Brachial, pH 7.55 H, Bicarbonate Actual 35.9 H, POC Total CO2 37, Base Excess 14 H, O2 Saturation 97, ABG pCO2 41.0, ABG pO2 84, Brad Test POS, O2 Delivery Device Nasal Can, Liter Flow 4.0, Blood Gas Notified Whom NUNO HERRING, Blood Gas Notified Time 831 11/12/19 11:14: POC Glucose 228 H Clinical Impression(s) from Imaging Studies [facility] X-Ray 11/11/19 14:35 IMPRESSION: Nonspecific, nonobstructive bowel gas pattern. Air distention of stomach and colon. Electronically Signed: Benjamin Villatoro MD ([place]) at 14:52 EST , Service support , Abdomen/Pelvis CT 11/12/19 08:31 IMPRESSION: 1. CT findings suggest a bowel obstruction. The transition appears to occur in the right lower quadrant. 2. Fluid-filled bowel suggest possible acute infectious or inflammatory process. 3. Bilateral basilar airspace consolidation and/or atelectasis could represent pneumonia. Electronically Signed: Elizabeth Menard MD at 10:13 EST , Service support , Current Medications Acetaminophen (Tylenol) 650 mg PO Q6H PRN PRN PRN Reason: Pain Score 1-3/Temp > 100.7 F Allopurinol (Zyloprim) 300 mg PO DAILY [facility] Last Admin: 11/11/19 08:59 Dose: 300 mg Documented by: Amiodarone HCl (Cordarone) 200 mg PO TID [facility] Stop: 11/13/19 22:01 Last Admin: 11/12/19 06:34 Dose: 200 mg Documented by: Amiodarone HCl (Cordarone) 200 mg PO BID [facility] Stop: 11/27/19 22:01 Amiodarone HCl (Cordarone) 200 mg PO DAILY [facility] Aspirin (Ecotrin) 81 mg PO DAILY@0800 [facility] Last Admin: 11/11/19 08:54 Dose: 81 mg Documented by: Atorvastatin Calcium (Lipitor) 20 mg PO QHS [facility] Last Admin: 11/11/19 22:12 Dose: 20 mg Documented by: Citalopram Hydrobromide (Celexa) 40 mg PO DAILY [facility] Last Admin: 11/11/19 08:57 Dose: 40 mg Documented by: Dextrose (D50w Syringe) 0 gm IV X1 PRN; Protocol PRN Reason: Hypoglycemia Diltiazem HCl (Cardizem Cd) 180 mg PO BID [facility] Last Admin: 11/11/19 22:08 Dose: 180 mg Documented by: Diphenoxylate HCl/Atropine (Lomotil) 1 tablet PO TIDCM [facility] Last Admin: 11/11/19 17:49 Dose: 1 tablet Documented by: Diphenoxylate HCl/Atropine (Lomotil) 2 tablet PO QHS [facility] Last Admin: 11/11/19 22:14 Dose: Not Given Documented by: Duloxetine HCl (Cymbalta) 60 mg PO DAILY [facility] Last Admin: 11/11/19 08:58 Dose: 60 mg Documented by: Ergocalciferol (Vitamin D) 50,000 unit PO QMONTH [facility] Famotidine (Pepcid) 20 mg PO BID [facility] Last Admin: 11/11/19 22:11 Dose: 20 mg Documented by: Fenofibrate (Tricor) 145 mg PO DAILYCM [facility] Last Admin: 11/11/19 08:56 Dose: 145 mg Documented by: Ferrous Sulfate (Ferrous Sulfate) 325 mg PO DAILY@0800 [facility] Last Admin: 11/11/19 08:54 Dose: 325 mg Documented by: Gabapentin (Neurontin) 400 mg PO TIDCM [facility] Last Admin: 11/11/19 17:45 Dose: 400 mg Documented by: Glucagon () 1 mg IM .X1 PRN PRN Reason: Hypoglycemia Hydromorphone HCl (Dilaudid Tablet) 2 mg PO BID PRN PRN PRN Reason: Pain Score 1-10/10 Last Admin: 11/12/19 08:29 Dose: 2 mg Documented by: Sodium Chloride () 500 mls @ 15 mls/hr IV PRN PRN PRN Reason: Blood Transfusion Sodium Chloride () 250 mls @ 15 mls/hr IV .[id number] PRN PRN Reason: Saline Flush Sodium Chloride () 250 mls @ 15 mls/hr IV .[id number] PRN PRN Reason: Additional IVPB Infusion Sodium Chloride () 1,000 mls @ 0 mls/hr IV .Q0M [facility] Insulin Human Lispro (Humalog Kwikpen (Bkc)) 0 unit SC ACHS [facility]; Protocol Last Admin: 11/12/19 06:37 Dose: 2 units Documented by: Levothyroxine Sodium (Synthroid) 112 mcg PO DAILY@0600 [facility] Last Admin: 11/12/19 06:34 Dose: 112 mcg Documented by: Lidocaine (Lidoderm Patch) 1 patch TOPICAL DAILY [facility]; Protocol Last Admin: 11/12/19 11:10 Dose: 1 patch Documented by: Lorazepam (Ativan) 0.5 mg PO BID PRN PRN Reason: ANXIETY Last Admin: 11/11/19 22:18 Dose: 0.5 mg Documented by: Melatonin (Melatonin) 3 mg PO QHS PRN PRN PRN Reason: INSOMNIA Metoprolol Succinate (Toprol Xl (Beta Jameel)) 50 mg PO BID [facility] Last Admin: 11/11/19 22:12 Dose: 50 mg Documented by: Ondansetron HCl (Zofran) 4 mg IV Q8H PRN PRN PRN Reason: NAUSEA/VOMITING Last Admin: 11/12/19 08:08 Dose: 4 mg Documented by: [facility]Dur[facility] Last Admin: 11/11/19 17:45 Dose: 20 meq Documented by: Promethazine HCl (Phenergan) 6.25 mg IV Q4H PRN PRN PRN Reason: NAUSEA/VOMITING Last Admin: 11/12/19 00:22 Dose: 6.25 mg Documented by: Sodium Chloride () 10 - 40 ml IV UD PRN PRN Reason: SALINE FLUSH Last Admin: 11/12/19 00:22 Dose: 10 ml Documented by: Spironolactone (Aldactone) 25 mg PO BID [facility] Last Admin: 11/11/19 22:08 Dose: 25 mg Documented by: Assessment/Plan All Active Problems (Last Updated 11/03/19 @ 19:28 by Yuri Martin DO) SBO (small bowel obstruction) (Acute) 84-year-old female with small bowel obstruction 1. The patient had a CT scan which shows small bowel obstruction originating somewhere in the right lower quadrant. She also appears to have a small parastomal hernia on the CT scan. She has distended small bowel as well as stomach. She has had a total abdominal colectomy in the past and has an end ileostomy. When I was seeing her she did have a large amount of liquid from the ileostomy which recently came out. She is still complaining of abdominal pain. 2. The patient is a very poor surgical candidate. She is fully anticoagulated and has multiple electrolyte abnormalities and comorbidities. The patient wants anything done that she can to make the pain go away. I would like to place an NG tube today and start antibiotics for any translocation of gut bacteria. I would also like to perform a small bowel follow-through tomorrow as she is starting to have bowel output. She would be incredibly high risk for surgery. I discussed this with her admitting physician. He is going to hold her anticoagulation. Her electrolytes and anticoagulation would need to be corrected before surgery. She would be incredibly high risk for perioperative mortality and morbidity. Jameel Garcia MD Pager: [facility] [address] [place] [address], [address] [place] [phone] Office:
--- NOTE | 2019-11-12 12:00 | RAD_ITS ---
STUDY: X-RAY - ABDOMEN/PELVIS REASON FOR EXAM: Female, 84 years old. NG PLACEMENT TECHNIQUE: Enteric tube placement COMPARISON: 11/11/2019 FINDINGS: Enteric tube extends in the central left upper abdomen, likely in the upper stomach. Decreased air distention of the stomach following NG tube placement. No dilated loops of small bowel. Colonic gas is confirmed. There is no demonstrated free abdominal air. The visualized liver, spleen and kidneys are grossly normal in size and morphology. Cholecystectomy clips are present. Normal soft tissue structures. Bilateral chest tubes are identified. RAD/Abdomen Single View IMPRESSION: 1. Enteric tube placed with tip in the upper stomach. Decreased air distention of the stomach. 2. No dilated loops of small bowel. Electronically Signed: Benjamin Villatoro MD ([place]) at 12:27 EST , Service support ,
--- NOTE | 2019-11-12 16:25 | RAD_ITS ---
STUDY: X-RAY CHEST REASON FOR EXAM: Female, 84 years old. PICC line placement TECHNIQUE: Single frontal view of the chest. COMPARISON: 11/10/19. FINDINGS: PICC line at the cavoatrial junction. Enteric tube tip in the stomach. Cardiac silhouette unremarkable. Pulmonary vascularity increased. Aorta atherosclerosis. Left base opacity. Upper abdomen unremarkable. Osseous structures intact. No pneumothorax. Right shoulder arthroplasty. RAD/CXR for Line Placement IMPRESSION: Small left effusion. CHF/fluid overload similar to prior. Electronically Signed: Michael Egan, at 16:51 EST Tel , Service support ,
--- NOTE | 2019-11-12 17:03 | PN_ITS ---
Patient Problems: Active and Suspected Problems (Last Updated 11/03/19 @ 19:28 by Yuri Martin DO) SBO (small bowel obstruction) (Acute) Subjective: Patient was seen and examined today, she continued to complain of generalized abdominal discomfort, I had a CT performed on the abdomen and pelvis today, the findings suggested a bowel obstruction, I had general surgery see the patient and they had an NG inserted which returned drainage which appeared to be fecal in nature. Patient's white blood cell count is elevated today to 20,000, at the time of this dictation in the afternoon, patient started running a temperature and I placed her on Zosyn. I had long conversations with the patient's sister (Kiara Menard) who is her POA, it is the sister's wish that if the patient is unable to make a decision concerning surgery if it is needed, that the patient not be subjected to surgery because of an expected poor outcome. Patient's sister states that she would consider a hospice referral if needed. For now, it is the sisters wish that the patient continue medical treatment and be reevaluated tomorrow, general surgery is expected to order a CAT scan tomorrow to see if the patient has an actual bowel obstruction. I relayed this information to surgery. The patient's sister also states that if the patient wants to be transferred to another hospital they would prefer [place]. Talked informally to cardiology today who felt that the patient would be at very high risk for complications if she had surgery here and recommended that the patient be transferred to another facility if the patient needed surgery and she desired surgery. PICC line was inserted this afternoon, I placed the patient on IV amiodarone and her rate appears to be better controlled at this time. Oral medications will be held. I gave the patient IV vitamin K and her INR will be rechecked tomorrow. I have elected at this time not to keep the patient on Lovenox in case she requires surgery and the patient consents to it. Consideration whether to place the patient on Lovenox should be looked at tomorrow due to her factor V deficiency. - Physical Exam Vitals/I&O's: Vital Signs Temp Pulse Resp BP Pulse Ox 102.5 F H 92 20 H 128/61 H 94 11/12/19 16:33 11/12/19 16:33 11/12/19 16:33 11/12/19 16:33 11/12/19 16:33 Oxygen Flow Rate (L/min) 4 Oxygen Delivery Method Nasal Cannula Weight: 75.3 kg Body Mass Index (BMI) 32.5 Finger Stick Blood Glucose 150 Intake and Output for Last 24 Hours 11/10/19 11/11/19 11/12/19 23:59 23:59 23:59 Intake Total 1315 / 1315 910 / 910 427.13 / 427.13 Output Total 1750 / 1750 2074 / 2074 900 / 900 Balance -435 / -435 -1165 / -1165 -472.87 / -472.87 General: No apparent distress, Well developed, Lethargic, - - Patient is somnolent and lethargic, she does not respond to verbal stimuli but responds to painful stimuli HEENT: Atraumatic, PERRLA, Normocephalic Oral: Moist Mucosa Neck: Supple, Trachea Midline, Thyroid Normal Size and Texture Lungs: Clear to auscultation, Normal air movement, No rhonchi, No wheeze, No rales Cardiovascular: PMI Normal, Irregular Rate, No rub noted Abdomen: Bowel Sounds Present, Soft, Non Tender, Non-Distended, - - Ileostomy present Extremities: No clubbing, No cyanosis, No edema, Capillary Refill Less than 3 Seconds Skin: No rashes, No breakdown Musculoskeletal: No Tenderness to Palpation of Joints or Extremities Neurological: Cranial nerves II-XII grossly intact, Neuro grossly intact Psych/Mental Status: - - Patient appears somnolent and lethargic, she responds to painful stimuli Laboratory Results 11/11/19 17:42: POC Glucose 211 H 11/11/19 22:02: POC Glucose 198 H 11/12/19 06:36: POC Glucose 196 H 11/12/19 08:12: PT 31.6 H, INR 3.0 11/12/19 08:12: Sodium 128 L, Potassium 5.7 H, Chloride 89 L, Carbon Dioxide 29.0, Anion Gap 10, BUN 47 H, Creatinine 2.44 H, Estim Creat Clear Calc 14.20, Est GFR (MDRD) Af Amer 24 L, Est GFR (MDRD) Non-Af 20 L, BUN/Creatinine Ratio 19.3, Glucose 199 H, Calcium 10.0 11/12/19 08:12: WBC 20.6 H, RBC 4.65, Hgb 14.9, Hct 44.1, MCV 94.8, MCH 32.0, MCHC 33.8, RDW Std Deviation 49.0 H, RDW Coeff of Vannesa 14.1, Plt Count 400, MPV 10.1, Immature Gran % (Auto) 0.900, Neut % (Auto) 86.5 H, Lymph % (Auto) 4.1 L, Page % (Auto) 8.3, Eos % (Auto) 0.0, Baso % (Auto) 0.2, Absolute Neuts (auto) 17.8 H, Absolute Lymphs (auto) 0.84, Nucleated RBC % 0, Diff Path Review February, Platelet Estimate ADEQUATE, RBC Morphology NORM C+C 11/12/19 08:32: Specimen Type ART, Sample Site R Brachial, pH 7.55 H, Bicarbonate Actual 35.9 H, POC Total CO2 37, Base Excess 14 H, O2 Saturation 97, ABG pCO2 41.0, ABG pO2 84, Brad Test POS, O2 Delivery Device Nasal Can, Liter Flow 4.0, Blood Gas Notified Whom HOSP , Blood Gas Notified Time 831 11/12/19 11:14: POC Glucose 228 H Current Medications Acetaminophen (Tylenol) 650 mg PO Q6H PRN PRN PRN Reason: Pain Score 1-3/Temp > 100.7 F Acetaminophen (Tylenol) 325 mg RECTAL Q6H PRN PRN PRN Reason: HEADACHE/FEVER (T>100F) Allopurinol (Zyloprim) 300 mg PO DAILY [facility] Last Admin: 11/12/19 12:24 Dose: Not Given Documented by: Aspirin (Ecotrin) 81 mg PO DAILY@0800 [facility] Last Admin: 11/12/19 12:22 Dose: Not Given Documented by: Atorvastatin Calcium (Lipitor) 20 mg PO QHS [facility] Last Admin: 11/11/19 22:12 Dose: 20 mg Documented by: Citalopram Hydrobromide (Celexa) 40 mg PO DAILY [facility] Last Admin: 11/12/19 12:23 Dose: Not Given Documented by: Dextrose (D50w Syringe) 0 gm IV X1 PRN; Protocol PRN Reason: Hypoglycemia Diphenoxylate HCl/Atropine (Lomotil) 1 tablet PO TIDCM [facility] Last Admin: 11/12/19 12:22 Dose: Not Given Documented by: Diphenoxylate HCl/Atropine (Lomotil) 2 tablet PO QHS [facility] Last Admin: 11/11/19 22:14 Dose: Not Given Documented by: Duloxetine HCl (Cymbalta) 60 mg PO DAILY [facility] Last Admin: 11/12/19 12:23 Dose: Not Given Documented by: Ergocalciferol (Vitamin D) 50,000 unit PO QMONTH [facility] Famotidine (Pepcid) 20 mg PO BID [facility] Last Admin: 11/12/19 12:23 Dose: Not Given Documented by: Fenofibrate (Tricor) 145 mg PO DAILYCM [facility] Last Admin: 11/12/19 12:22 Dose: Not Given Documented by: Ferrous Sulfate (Ferrous Sulfate) 325 mg PO DAILY@0800 [facility] Last Admin: 11/12/19 12:22 Dose: Not Given Documented by: Gabapentin (Neurontin) 400 mg PO TIDCM [facility] Last Admin: 11/12/19 12:22 Dose: Not Given Documented by: Glucagon () 1 mg IM .X1 PRN PRN Reason: Hypoglycemia Hydromorphone HCl (Dilaudid Tablet) 2 mg PO BID PRN PRN PRN Reason: Pain Score 1-10/10 Last Admin: 11/12/19 08:29 Dose: 2 mg Documented by: Sodium Chloride () 500 mls @ 15 mls/hr IV PRN PRN PRN Reason: Blood Transfusion Sodium Chloride () 250 mls @ 15 mls/hr IV .[id number] PRN PRN Reason: Saline Flush Sodium Chloride () 250 mls @ 15 mls/hr IV .[id number] PRN PRN Reason: Additional IVPB Infusion Sodium Chloride () 1,000 mls @ 0 mls/hr IV .Q0M [facility] Amiodarone HCl 360 mg/ (Dextrose) 200 mls @ 33.333 mls/hr CONT INF .Q6H [facility] Stop: 11/12/19 19:29 Last Infusion: 11/12/19 17:03 Dose: 1 mg/min, 33.3 mls/hr Documented by: Amiodarone HCl 360 mg/ (Dextrose) 200 mls @ 16.667 mls/hr CONT INF .Q12H [facility] Stop: 11/13/19 13:29 Sodium Chloride () 1,000 mls @ 125 mls/hr IV .Q8H [facility] Piperacillin Sod/Tazobactam (Sod 3.375 gm/ Sodium Chloride) 50 mls @ 12.5 mls/hr IV Q8 [facility] Insulin Human Lispro (Humalog Kwikpen (Bkc)) 0 unit SC ACHS [facility]; Protocol Last Admin: 11/12/19 12:24 Dose: Not Given Documented by: Levothyroxine Sodium (Synthroid) 112 mcg PO DAILY@0600 [facility] Last Admin: 11/12/19 06:34 Dose: 112 mcg Documented by: Lidocaine (Lidoderm Patch) 1 patch TOPICAL DAILY [facility]; Protocol Last Admin: 11/12/19 11:10 Dose: 1 patch Documented by: Lorazepam (Ativan) 0.5 mg PO BID PRN PRN Reason: ANXIETY Last Admin: 11/11/19 22:18 Dose: 0.5 mg Documented by: Melatonin (Melatonin) 3 mg PO QHS PRN PRN PRN Reason: INSOMNIA Metoprolol Succinate (Toprol Xl (Beta Jameel)) 50 mg PO BID [facility] Last Admin: 11/12/19 12:23 Dose: Not Given Documented by: Ondansetron HCl (Zofran) 4 mg IV Q8H PRN PRN PRN Reason: NAUSEA/VOMITING Last Admin: 11/12/19 08:08 Dose: 4 mg Documented by: [facility]Dur[facility] Admin: 11/12/19 12:22 Dose: Not Given Documented by: Promethazine HCl (Phenergan) 6.25 mg IV Q4H PRN PRN PRN Reason: NAUSEA/VOMITING Last Admin: 11/12/19 00:22 Dose: 6.25 mg Documented by: Sodium Chloride () 10 - 40 ml IV UD PRN PRN Reason: SALINE FLUSH Last Admin: 11/12/19 16:50 Dose: 20 ml Documented by: Spironolactone (Aldactone) 25 mg PO BID [facility] Last Admin: 11/12/19 12:23 Dose: Not Given Documented by: Medical Necessity - Tobacco Use Smoking Status: Never smoker Assessment/Plan All Active Problems (Last Updated 11/03/19 @ 19:28 by Yuri Martin DO) SBO (small bowel obstruction) (Acute) #1 chronic atrial fib with RVR-medication changes were made today, continue to observe patient #2 small bowel obstruction-exact location unknown at this time, surgery is following the patient, she now has an NG tube inserted #3 acute hypoxic respiratory failure secondary to diastolic congestive heart failure #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, she was given vitamin K 10 mg IV today in case she has to undergo surgery, patient wanted to be reevaluated tomorrow if she does not require surgery or does not desire surgery to see if Lovenox could be restarted on the patient #4 acute diastolic congestive heart failure-patient's Bumex will be held for now due to low urine output and hypotension #5 type 2 diabetes #6 aortic stenosis-moderate #7 pulmonary hypertension #8 moderate mitral regurg #9 chronic pain syndrome secondary to osteoarthritis and spinal stenosis #10 hyperlipidemia Patient will be given IV fluids at 125 cc/h, this will need to be reevaluated tomorrow morning. Again I had a lengthy discussion with the patient's sister who is her POA concerning her medical course. Her sister confirmed that the p atient is a DNR CC arrest with no intubation. Code Visit Inpatient E&M: 54523 Subs Hosp L3
[2019-11-12] MEDS: 0.9% Normal Saline 1,000 ML 125 ML IV (17:08)
[2019-11-12 17:30] LABS: Bedside Glucose 208 mg/dL (70-110)
[2019-11-12] MEDS: Acetaminophen 650 MG/20 ML UDC NG (19:41)
--- NOTE | 2019-11-12 22:49 | NURSING ---
DR RAMOS CALLED, PATIENT HR IN 20S AGONAL BREATHING, STATES PATIENT IS NO AGGRESSIVE TREATMENT AND IS COMING OVER TO FLOOR.
--- NOTE | 2019-11-12 23:05 | NURSING ---
PATIENT TIME OF , PATIENT WAS VERIFIED BY TWO RN'S WYATT MICHELLE AND CLARE CONWAY.
--- NOTE | 2019-11-12 23:15 | NURSING ---
DR RAMOS ON FLOOR, SPOKE TO FAMILY ABOUT PATIENT'S PASSING.
--- NOTE | 2019-11-12 23:28 | CCHN_ITS ---
Hospitalist Note Patient hypotensive, requested hold on amiodarone, initial plan for bolus but dyspnea complaint with CXR with overload, thus held on repeat bolus with recent acute on chronic CHF exacerbation concurrently w/ recent SBO concerns, noted high risk for surgery. Lengthy code status discussion per Dr. Valle with family with DNR-CCA, no intubation, no aggressive measures including pressor therapy or central line. Patient despite hold on amiodarone for hypotension given rate controlled 60, quickly passed at 23:05 on 11/12/19. Family updated. [employer] updated.
[2019-11-13 00:06] LABS: Bedside Glucose 149 mg/dL (70-110)
[2019-11-13 14:17] LABS: Pathologist Review Reviewed
--- NOTE | 2019-11-25 19:29 | EXP.PCM_ITS ---
Preliminary Cause of Acute septic shock secondary to small bowel obstruction Date of Admission: 11/03/19 Date of : 12/13/19 - Principle Diagnosis #1 acute septic shock secondary to small bowel obstruction #2 small bowel obstruction etiology unknown #3 acute hypoxic respiratory failure secondary to diastolic congestive heart failure #4 acute diastolic congestive heart failure #5 type 2 diabetes #6 moderate aortic stenosis #7 metabolic encephalopathy Hospital Course Patient was an 84-year-old white female who was rectally admitted to [facility] from an outside emergency room after being evaluated for complaints of palpitations, she was found to be in atrial fibrillation and requested transfer to [facility] for further treatment. Patient also complained of shortness of breath and was found to be in congestive heart failure. Patient was admitted to PCU, she was seen in consultation by cardiology, and attempts were made to control the patient's atrial fibrillation. Her cardiogram performed here showed the patient had pulmonary hypertension and a normal EF along with moderate aortic stenosis. Cardiology carried out conversations with the patient concerning how aggressive to be with her medical care, and first the patient did not want any invasive testing, she then changed her mind and wanted to undergo a cardiac catheterization, after additional conversations with her however, patient declined the cardiac catheterization and she was felt to be too frail to undergo the procedure due to her multiple medical problems. She was seen by PT and OT and the patient requested transfer to a detention facility at the time of discharge from the hospital. However, patient developed abdominal distention and discomfort on 11/11/2019 which worsened on 11/12/2019, she was seen in consultation by general surgery and a CAT scan was performed which indicated the patient had a small bowel obstruction. The patient's mental status declined probably from metabolic encephalopathy, discussions were carried out with the patient's POA who was her sister about how aggressive to be with the patient's medical care, she made the patient a DNR CC arrest without intubation. On the evening of 11/12/2019, patient's condition deteriorated and she became hypotensive, she then became bradycardic and then went into asystole. Her time of was 2305 on 11/12/2019, family did not request autopsy and her cause of was felt to be secondary to septic shock from a small bowel obstruction. Code Visit Inpatient E&M: 32085 [facility]
== END 2019-11-12 23:05 | DRG 291 ==
PROVIDERS: Family Medicine; Hospitalist; Internal Medicine Cardiovascular Disease; Physician Assistant; Family Provider Family Medicine; PCP Family Medicine; Visit Provider Internal Medicine
DX: I13.0 Hypertensive heart and chronic kidney disease with heart failure and stage 1 through stage 4 chronic kidney disease, or unspecified chronic kidney disease (principal); J96.01 Acute respiratory failure with hypoxia; I50.33 Acute on chronic diastolic (congestive) heart failure; R65.21 Severe sepsis with septic shock; A41.9 Sepsis, unspecified organism; G93.41 Metabolic encephalopathy; I48.20 Chronic atrial fibrillation, unspecified; D68.2 Hereditary deficiency of other clotting factors; K56.609 Unspecified intestinal obstruction, unspecified as to partial versus complete obstruction; Z66 Do not resuscitate; E03.9 Hypothyroidism, unspecified; Z93.2 Ileostomy status; I08.3 Combined rheumatic disorders of mitral, aortic and tricuspid valves; M48.00 Spinal stenosis, site unspecified; M19.90 Unspecified osteoarthritis, unspecified site; N18.2 Chronic kidney disease, stage 2 (mild); E11.22 Type 2 diabetes mellitus with diabetic chronic kidney disease; Z90.49 Acquired absence of other specified parts of digestive tract; Z86.718 Personal history of other venous thrombosis and embolism; Z79.01 Long term (current) use of anticoagulants; I27.20 Pulmonary hypertension, unspecified
CPT/HCPCS: 36415; 36569; 36600; 71045; 71250; 74018; 74176; 80048; 80053; 80162; 82306; 82803; 82962; 83036; 83735; 83880; 84100; 84443; 84484; 85025; 85610; 85730; 87040; 93005; 93306; 94640; 97110; 97161; 97166; 97530; 97535; 97802; 99251; J7030; J7040; Q9957; A4216; G0463; J1940; J2405; J3490